=== PATIENT | female | born 1960 | race Two or more races ===

== ENCOUNTER 2017-10-21 20:26 | Emergency (ER) | payer OTHER ==
[~2017-10-21] VITALS: Ht 167.6 cm; Wt 100.4 kg
[2017-10-21 20:47] VITALS: BP 155/77
[2017-10-21] MEDS ORDERED: DIAZEPAM 5 MG/ML 2ML SYRG IM ONE (23:30)
[2017-10-21] MEDS ORDERED: DIAZEPAM 5 MG TAB ONE (23:37)
[2017-10-21] MEDS ORDERED: DIAZEPAM 5 MG TAB PO ONE (23:45)
== END 2017-10-21 23:59 | disposition home or self-care (01) ==
LOC: ER 20:26
DX: S13.4XXA Sprain of ligaments of cervical spine, initial encounter (principal); X58.XXXA Exposure to other specified factors, initial encounter; Y93.89 Activity, other specified; Y99.8 Other external cause status; Y92.89 Other specified places as the place of occurrence of the external cause
CPT/HCPCS: 72125

== ENCOUNTER → 2020-01-19 | Outpatient (CLI) | payer OTHER ==
[2020-01-19 09:39] LABS: Albumin 3.8 g/dL (3.4-5.0); Calcium 8.4 mg/dL (8.5-10.1); Potassium 3.9 mmol/L (3.5-5.1)
[2020-01-19 09:42] LABS: BUN/Creatinine Ratio 48.9; Bilirubin, Total 0.4 mg/dL (0.2-1.0); Total Protein 7.8 g/dL (6.4-8.2)
== END | disposition home or self-care (01) ==
LOC: LAB 08:47
PROVIDERS: ATTEND Internal Medicine
DX: Z12.11 Encounter for screening for malignant neoplasm of colon (principal); E78.5 Hyperlipidemia, unspecified
CPT/HCPCS: 36415; 80053

== ENCOUNTER → 2020-01-24 | Outpatient (CLI) | payer OTHER | END | disposition home or self-care (01) | LOC: LAB 14:24 | PROVIDERS: ATTEND Internal Medicine | DX: G72.9 Myopathy, unspecified (principal) | CPT/HCPCS: 82270 ==

== ENCOUNTER → 2020-04-06 | Outpatient (CLI) | payer OTHER ==
[2020-04-06 09:29] LABS: Basophils # (auto) 0.1 10 ^3/uL (0-0.2); Eosinophils # (auto) 0.3 10 ^3/uL (0-0.8); Hemoglobin 13.6 g/dL (12.2-16.2); Mean Corpuscular Volume 84.2 fL (80.0-100.0); Monocytes # (auto) 0.5 10 ^3/uL (0-1.3); Platelet Count (auto) 294 10^3/uL (140-450); White Blood Cell 10.1 10^3/uL (4.4-10.8)
[2020-04-06 09:30] LABS: Basophils % (auto) 0.8 % (0.0-2.0); Hematocrit 42.3 % (36.0-46.0); Lymphocytes # (auto) 2.9 10 ^3/uL (0.4-5.4); Mean Corpuscular Hemoglobin 27.1 pg (28.0-32.0); Mean Corpuscular Hgb Conc. 32.2 g/dL (32.0-36.0); Neutrophils # (auto) 6.3 10 ^3/uL (1.6-8.6); Neutrophils % (auto) 62.2 % (37.0-80.0); Nucleated Red Blood Cells % 0.1 %; Red Blood Cells 5.02 10^6/uL (4.0-5.20); Red Cell Distribution Width 14.4 % (11.8-14.3)
== END | disposition home or self-care (01) ==
LOC: LAB 09:15
PROVIDERS: ATTEND Internal Medicine
DX: M17.12 Unilateral primary osteoarthritis, left knee (principal); E78.5 Hyperlipidemia, unspecified
CPT/HCPCS: 36415; 83036; 85025; 85652

== ENCOUNTER → 2021-03-28 | Outpatient (CLI) | payer OTHER ==
[2021-03-28 10:53] LABS: Basophils # (auto) 0.1 10 ^3/uL (0-0.2); Basophils % (auto) 0.7 % (0.0-2.0); Eosinophils # (auto) 0.2 10 ^3/uL (0-0.8); Eosinophils % (auto) 2.3 % (0.0-7.0); Hematocrit 41.2 % (36.0-46.0); Lymphocytes # (auto) 3.3 10 ^3/uL (0.4-5.4); Lymphocytes % (auto) 33.9 % (10.0-50.0); Mean Corpuscular Hgb Conc. 33.9 g/dL (32.0-36.0); Mean Corpuscular Volume 82.4 fL (80.0-100.0); Monocytes # (auto) 0.5 10 ^3/uL (0-1.3); Monocytes % (auto) 4.9 % (0.0-12.0); Neutrophils # (auto) 5.7 10 ^3/uL (1.6-8.6); Neutrophils % (auto) 58.2 % (37.0-80.0); Red Cell Distribution Width 14.5 % (11.8-14.3); White Blood Cell 9.8 10^3/uL (4.4-10.8)
[2021-03-28 10:57] LABS: Urine Amorphous Crystal FEW /hpf (None Seen); Urine Bacteria FEW /hpf (None Seen); Urine Blood Negative /uL (Negative); Urine Mucus FEW (None Seen); Urine Specific Gravity 1.027 (1.001-1.035); Urine WBC 3 /hpf (0 - 5)
[2021-03-28 11:19] LABS: Albumin 3.9 g/dL (3.4-5.0); Calcium 9.3 mg/dL (8.5-10.1); Potassium 3.9 mmol/L (3.5-5.1)
[2021-03-28 11:26] LABS: BUN/Creatinine Ratio 42.2; Bilirubin, Total 0.3 mg/dL (0.2-1.0); Total Protein 8.6 g/dL (6.4-8.2)
== END | disposition home or self-care (01) ==
LOC: LAB 10:24
PROVIDERS: ATTEND Internal Medicine
DX: Z12.11 Encounter for screening for malignant neoplasm of colon (principal); I10 Essential (primary) hypertension; E11.9 Type 2 diabetes mellitus without complications
CPT/HCPCS: 36415; 80053; 80061; 81001; 82043; 85025

== ENCOUNTER → 2021-04-03 | Outpatient (CLI) | payer OTHER | END | disposition home or self-care (01) | LOC: XYW 12:56 | PROVIDERS: ATTEND Internal Medicine | DX: Z01.810 Encounter for preprocedural cardiovascular examination (principal); I07.1 Rheumatic tricuspid insufficiency | CPT/HCPCS: 93306 ==

== ENCOUNTER → 2021-12-16 | Outpatient (CLI) | payer OTHER | END | disposition home or self-care (01) | LOC: LAB 11:16 | PROVIDERS: ATTEND Internal Medicine | DX: Z12.11 Encounter for screening for malignant neoplasm of colon (principal); E11.9 Type 2 diabetes mellitus without complications; E78.5 Hyperlipidemia, unspecified; R22.43 Localized swelling, mass and lump, lower limb, bilateral; I10 Essential (primary) hypertension | CPT/HCPCS: 82270 ==

== ENCOUNTER → 2021-12-30 | Outpatient (CLI) | payer OTHER | END | disposition home or self-care (01) | LOC: LAB 10:42 | PROVIDERS: ATTEND Internal Medicine | DX: M79.606 Pain in leg, unspecified (principal); E78.5 Hyperlipidemia, unspecified | CPT/HCPCS: 36415; 82550 ==

== ENCOUNTER → 2022-02-09 | Emergency (ER) | payer OTHER ==
[~2022-02-09] VITALS: Ht 167.6 cm; Wt 104.3 kg
[~2022-02-09] MED LIST: KETOROLAC TROMETH 60MG/2ML VIAL IM ONE
[2022-02-09 18:20] VITALS: BP 101/63
== END | disposition home or self-care (01) ==
LOC: ER 14:32
DX: M17.12 Unilateral primary osteoarthritis, left knee (principal); M79.605 Pain in left leg; I11.0 Hypertensive heart disease with heart failure; I50.9 Heart failure, unspecified; E78.5 Hyperlipidemia, unspecified; Z90.49 Acquired absence of other specified parts of digestive tract
CPT/HCPCS: 73562; 93971; 96372; 99284; J1885

== ENCOUNTER → 2022-02-25 | Outpatient (CLI) | payer OTHER ==
[2022-02-25 11:35] LABS: Alanine Aminotransferase 51 U/L (13-56); Albumin 3.5 g/dL (3.4-5.0); Alkaline Phosphatase 68 U/L (45-117); Aspartate Aminotransferase 26 U/L (15-37); Bilirubin, Direct < 0.1 mg/dL (0-0.2); Bilirubin, Total 0.4 mg/dL (0.2-1.0); Total Protein 7.6 g/dL (6.4-8.2)
== END | disposition home or self-care (01) ==
LOC: LAB 10:07
PROVIDERS: ATTEND Internal Medicine
DX: E78.5 Hyperlipidemia, unspecified (principal)
CPT/HCPCS: 36415; 80076

== ENCOUNTER → 2022-06-30 | Outpatient (CLI) | payer OTHER ==
[2022-06-30 13:23] LABS: Alanine Aminotransferase 77 U/L (13-56); Albumin 3.3 g/dL (3.4-5.0); Alkaline Phosphatase 65 U/L (45-117); Aspartate Aminotransferase 28 U/L (15-37); Bilirubin, Direct < 0.1 mg/dL (0-0.2); Bilirubin, Total 0.3 mg/dL (0.2-1.0); Creatine Kinase IFCC 113 U/L (26-192); Total Protein 7.2 g/dL (6.4-8.2)
== END | disposition home or self-care (01) ==
LOC: LAB 11:00
PROVIDERS: ATTEND Internal Medicine
DX: E78.5 Hyperlipidemia, unspecified (principal)
CPT/HCPCS: 36415; 80076; 82550

== ENCOUNTER → 2022-08-20 | Outpatient (CLI) | payer OTHER ==
[2022-08-20 10:13] LABS: Albumin 3.6 g/dL (3.4-5.0)
[2022-08-20 10:19] LABS: Alanine Aminotransferase 77 U/L (13-56); Alkaline Phosphatase 81 U/L (45-117); Aspartate Aminotransferase 29 U/L (15-37); Bilirubin, Direct < 0.1 mg/dL (0-0.2); Bilirubin, Total 0.3 mg/dL (0.2-1.0); Total Protein 7.4 g/dL (6.4-8.2)
== END | disposition home or self-care (01) ==
LOC: LAB 09:31
PROVIDERS: ATTEND Internal Medicine
DX: E78.5 Hyperlipidemia, unspecified (principal)
CPT/HCPCS: 36415; 80076

== ENCOUNTER 2022-08-31 10:29 | Emergency (ER) | payer OTHER ==
[~2022-08-31] VITALS: Ht 167.6 cm; Wt 122.0 kg
[2022-08-31 11:51] VITALS: BP 91/76
[2022-08-31] MEDS ORDERED: HYDROcodone-ACET 10/325MG TAB PO ONE (12:15)
[2022-08-31] MEDS ORDERED: IBUP800T26 PO (14:15)
== END 2022-08-31 14:18 | disposition home or self-care (01) ==
LOC: ER 10:29
DX: M47.816 Spondylosis without myelopathy or radiculopathy, lumbar region (principal); M54.40 Lumbago with sciatica, unspecified side; I11.0 Hypertensive heart disease with heart failure; I50.9 Heart failure, unspecified; E11.9 Type 2 diabetes mellitus without complications; E78.5 Hyperlipidemia, unspecified; Z90.49 Acquired absence of other specified parts of digestive tract
CPT/HCPCS: 72100

== ENCOUNTER → 2022-11-04 | Outpatient (CLI) | payer OTHER ==
[~2022-11-04] MED LIST changes: +IBUP800T26 PO; -KETOROLAC TROMETH 60MG/2ML VIAL IM ONE
[2022-11-04 10:35] LABS: Basophils # (auto) 0.1 10 ^3/uL (0-0.2); Basophils % (auto) 0.8 % (0.0-2.0); Eosinophils # (auto) 0.1 10 ^3/uL (0-0.8); Eosinophils % (auto) 0.9 % (0.0-7.0); Lymphocytes # (auto) 4.6 10 ^3/uL (0.4-5.4); Monocytes # (auto) 0.8 10 ^3/uL (0-1.3); Monocytes % (auto) 5.5 % (0.0-12.0); Neutrophils # (auto) 9.7 10 ^3/uL (1.6-8.6); Neutrophils % (auto) 62.8 % (37.0-80.0); Nucleated Red Blood Cells % 0.1 %; White Blood Cell 15.4 10^3/uL (4.4-10.8)
[2022-11-04 10:36] LABS: Hematocrit 40.4 % (36.0-46.0); Hemoglobin 13.5 g/dL (12.2-16.2); Mean Corpuscular Hemoglobin 28.2 pg (28.0-32.0); Mean Corpuscular Hgb Conc. 33.5 g/dL (32.0-36.0); Mean Corpuscular Volume 84.4 fL (80.0-100.0); Red Blood Cells 4.79 10^6/uL (4.0-5.20); Red Cell Distribution Width 14.6 % (11.8-14.3)
[2022-11-04 11:10] LABS: Alanine Aminotransferase 82 U/L (13-56); Albumin 3.3 g/dL (3.4-5.0); Alkaline Phosphatase 90 U/L (45-117); Anion Gap 5 (5-15); Aspartate Aminotransferase 36 U/L (15-37); BUN/Creatinine Ratio 53.2; Bilirubin, Direct < 0.1 mg/dL (0-0.2); Bilirubin, Total 0.3 mg/dL (0.2-1.0); Blood Urea Nitrogen 25 mg/dL (7-18); Calcium 8.9 mg/dL (8.5-10.1); Carbon Dioxide 27 mmol/L (21-32); Chloride 109 mmol/L (98-107); Cholesterol 280 mg/dL (< 200); GFR African American 173 mL/min; GFR Non-African American 143 mL/min; Glucose 105 mg/dL (74-106); HDL Cholesterol 55 mg/dL (40-59); LDL Cholesterol 195 mg/dL (< 100); Potassium 3.6 mmol/L (3.5-5.1); Sodium 141 mmol/L (136-145); Total Protein 7.6 g/dL (6.4-8.2); Triglycerides 241 mg/dL (< 150)
== END | disposition home or self-care (01) ==
LOC: LAB 10:18
PROVIDERS: ATTEND Internal Medicine
DX: Z12.11 Encounter for screening for malignant neoplasm of colon (principal); E11.9 Type 2 diabetes mellitus without complications; E78.5 Hyperlipidemia, unspecified; I10 Essential (primary) hypertension
CPT/HCPCS: 36415; 80053; 80061; 80076; 82043; 83036; 85025

== ENCOUNTER → 2022-11-10 | Outpatient (CLI) | payer OTHER ==
[2022-11-10 09:16] LABS: Basophils # (auto) 0.1 10 ^3/uL (0-0.2); Basophils % (auto) 0.5 % (0.0-2.0); Eosinophils # (auto) 0 10 ^3/uL (0-0.8); Hematocrit 40.1 % (36.0-46.0); Hemoglobin 13.2 g/dL (12.2-16.2); Lymphocytes # (auto) 4.5 10 ^3/uL (0.4-5.4); Lymphocytes % (auto) 20.4 % (10.0-50.0); Mean Corpuscular Hemoglobin 27.7 pg (28.0-32.0); Mean Corpuscular Hgb Conc. 32.8 g/dL (32.0-36.0); Mean Corpuscular Volume 84.6 fL (80.0-100.0); Monocytes # (auto) 1.1 10 ^3/uL (0-1.3); Monocytes % (auto) 5.1 % (0.0-12.0); Neutrophils # (auto) 16.2 10 ^3/uL (1.6-8.6); Nucleated Red Blood Cells % 0.1 %; Red Blood Cells 4.75 10^6/uL (4.0-5.20); Red Cell Distribution Width 14.8 % (11.8-14.3)
[2022-11-10 10:12] LABS: Urine Bacteria NONE SEEN /hpf (None Seen); Urine Blood Negative /uL (Negative); Urine Specific Gravity 1.025 (1.001-1.035); Urine WBC 1 /hpf (0 - 5)
== END | disposition home or self-care (01) ==
LOC: LAB 08:56
PROVIDERS: ATTEND Internal Medicine
DX: D72.829 Elevated white blood cell count, unspecified (principal)
CPT/HCPCS: 36415; 81001; 85025

== ENCOUNTER → 2022-12-03 | Outpatient (CLI) | payer OTHER ==
[2022-12-03 11:00] LABS: Basophils # (auto) 0.1 10 ^3/uL (0-0.2); Basophils % (auto) 0.8 % (0.0-2.0); Eosinophils # (auto) 0.1 10 ^3/uL (0-0.8); Eosinophils % (auto) 0.8 % (0.0-7.0); Hematocrit 40.2 % (36.0-46.0); Hemoglobin 12.8 g/dL (12.2-16.2); Lymphocytes # (auto) 3.2 10 ^3/uL (0.4-5.4); Lymphocytes % (auto) 21.5 % (10.0-50.0); Mean Corpuscular Hemoglobin 27.1 pg (28.0-32.0); Mean Corpuscular Hgb Conc. 31.9 g/dL (32.0-36.0); Monocytes # (auto) 0.8 10 ^3/uL (0-1.3); Monocytes % (auto) 5.5 % (0.0-12.0); Neutrophils # (auto) 10.7 10 ^3/uL (1.6-8.6); Neutrophils % (auto) 71.4 % (37.0-80.0); Nucleated Red Blood Cells % 0.1 %; Red Blood Cells 4.72 10^6/uL (4.0-5.20); Red Cell Distribution Width 15.7 % (11.8-14.3)
== END | disposition home or self-care (01) ==
LOC: LAB 10:47
PROVIDERS: ATTEND Internal Medicine
DX: I10 Essential (primary) hypertension (principal); E11.9 Type 2 diabetes mellitus without complications; D72.829 Elevated white blood cell count, unspecified
CPT/HCPCS: 36415; 85025; 85379

== ENCOUNTER → 2022-12-18 | Outpatient (CLI) | payer OTHER ==
[2022-12-18 08:00] LABS: Basophils # (auto) 0.1 10 ^3/uL (0-0.2); Basophils % (auto) 0.6 % (0.0-2.0); Eosinophils # (auto) 0.1 10 ^3/uL (0-0.8); Eosinophils % (auto) 0.9 % (0.0-7.0); Hematocrit 40.3 % (36.0-46.0); Lymphocytes # (auto) 5.2 10 ^3/uL (0.4-5.4); Lymphocytes % (auto) 34.9 % (10.0-50.0); Mean Corpuscular Hemoglobin 27.4 pg (28.0-32.0); Mean Corpuscular Hgb Conc. 32.4 g/dL (32.0-36.0); Mean Corpuscular Volume 84.8 fL (80.0-100.0); Monocytes # (auto) 0.9 10 ^3/uL (0-1.3); Monocytes % (auto) 6.1 % (0.0-12.0); Neutrophils # (auto) 8.5 10 ^3/uL (1.6-8.6); Neutrophils % (auto) 57.5 % (37.0-80.0); Nucleated Red Blood Cells % 0.1 %; Red Blood Cells 4.75 10^6/uL (4.0-5.20); Red Cell Distribution Width 15.7 % (11.8-14.3); White Blood Cell 14.8 10^3/uL (4.4-10.8)
[2022-12-18 08:39] LABS: Cholesterol 281 mg/dL (< 200); HDL Cholesterol 55 mg/dL (40-59); LDL Cholesterol 190 mg/dL (< 100); Triglycerides 259 mg/dL (< 150)
== END | disposition home or self-care (01) ==
LOC: LAB 07:36
PROVIDERS: ATTEND Internal Medicine
DX: E11.9 Type 2 diabetes mellitus without complications (principal); D72.829 Elevated white blood cell count, unspecified; R79.89 Other specified abnormal findings of blood chemistry
CPT/HCPCS: 36415; 80061; 82570; 83036; 85025

== ENCOUNTER → 2023-02-04 | Outpatient (CLI) | payer OTHER ==
[~2023-02-04] MED LIST changes: +IBUP-1455 PO; -IBUP800T26 PO
[2023-02-04 08:58] LABS: Basophils # (auto) 0.1 10 ^3/uL (0-0.2); Basophils % (auto) 0.6 % (0.0-2.0); Eosinophils # (auto) 0.1 10 ^3/uL (0-0.8); Eosinophils % (auto) 0.6 % (0.0-7.0); Hematocrit 41.1 % (36.0-46.0); Hemoglobin 13.4 g/dL (12.2-16.2); Lymphocytes # (auto) 4.6 10 ^3/uL (0.4-5.4); Lymphocytes % (auto) 26.9 % (10.0-50.0); Mean Corpuscular Hemoglobin 28.2 pg (28.0-32.0); Mean Corpuscular Hgb Conc. 32.6 g/dL (32.0-36.0); Mean Corpuscular Volume 86.4 fL (80.0-100.0); Monocytes # (auto) 0.9 10 ^3/uL (0-1.3); Monocytes % (auto) 5.4 % (0.0-12.0); Neutrophils # (auto) 11.4 10 ^3/uL (1.6-8.6); Neutrophils % (auto) 66.5 % (37.0-80.0); Nucleated Red Blood Cells % 0.1 %; Red Blood Cells 4.75 10^6/uL (4.0-5.20); Red Cell Distribution Width 15.5 % (11.8-14.3); White Blood Cell 17.2 10^3/uL (4.4-10.8)
[2023-02-04 09:08] LABS: Albumin 3.3 g/dL (3.4-5.0); Calcium 8.1 mg/dL (8.5-10.1); Potassium 3.8 mmol/L (3.5-5.1)
[2023-02-04 09:12] LABS: BUN/Creatinine Ratio 49.2 (10.0-20.0); Bilirubin, Total 0.2 mg/dL (0.2-1.0); CRP High Sensitivity 0.71 mg/dL (< 0.3); Total Protein 6.9 g/dL (6.4-8.2)
== END | disposition home or self-care (01) ==
LOC: LAB 08:05
PROVIDERS: ATTEND Internal Medicine
DX: D72.829 Elevated white blood cell count, unspecified (principal)
CPT/HCPCS: 36415; 80053; 83615; 85025; 85652; 86038; 86141; 86431

== ENCOUNTER → 2023-04-07 | Outpatient (CLI) | payer OTHER | END | disposition home or self-care (01) | LOC: LAB 08:39 | PROVIDERS: ATTEND Internal Medicine | DX: E11.9 Type 2 diabetes mellitus without complications (principal); D72.819 Decreased white blood cell count, unspecified | CPT/HCPCS: 36415; 82550; 83036; 83615 ==

== ENCOUNTER → 2023-05-28 | Outpatient (CLI) | payer OTHER ==
[2023-05-28 09:02] LABS: Basophils # (auto) 0.1 10 ^3/uL (0-0.2); Basophils % (auto) 0.8 % (0.0-2.0); Eosinophils # (auto) 0.1 10 ^3/uL (0-0.8); Hematocrit 40.4 % (36.0-46.0); Hemoglobin 13.1 g/dL (12.2-16.2); Lymphocytes # (auto) 3.8 10 ^3/uL (0.4-5.4); Mean Corpuscular Hemoglobin 27.7 pg (28.0-32.0); Mean Corpuscular Hgb Conc. 32.4 g/dL (32.0-36.0); Mean Corpuscular Volume 85.5 fL (80.0-100.0); Neutrophils # (auto) 8.6 10 ^3/uL (1.6-8.6); Neutrophils % (auto) 63.2 % (37.0-80.0); Nucleated Red Blood Cells % 0.1 %; Red Blood Cells 4.73 10^6/uL (4.0-5.20); Red Cell Distribution Width 15.7 % (11.8-14.3); White Blood Cell 13.6 10^3/uL (4.4-10.8)
[2023-05-28 09:20] LABS: Chloride 106 mmol/L (98-107); Potassium 3.4 mmol/L (3.5-5.1); Sodium 143 mmol/L (136-145)
[2023-05-28 09:21] LABS: Anion Gap 9 (5-15); Calcium 9.3 mg/dL (8.5-10.1); Carbon Dioxide 28 mmol/L (20-30); Creatinine, Urine 115.12 mg/dL (30.0-125.0)
[2023-05-28 09:26] LABS: BUN/Creatinine Ratio 30.4 (10.0-20.0); Blood Urea Nitrogen 14 mg/dL (9-23); Glucose 133 mg/dL (74-106)
== END | disposition home or self-care (01) ==
LOC: LAB 08:31
PROVIDERS: ATTEND Internal Medicine
DX: E11.9 Type 2 diabetes mellitus without complications (principal); D72.829 Elevated white blood cell count, unspecified
CPT/HCPCS: 36415; 80048; 82043; 82570; 83615; 85025

== ENCOUNTER 2023-06-21 13:05 | Emergency (ER) | payer OTHER, MEDICARE ==
[~2023-06-21] VITALS: Ht 167.6 cm; Wt 130.3 kg
[2023-06-21 13:17] VITALS: BP 140/67; PULSE 87; RESP 17; O2SAT 95
[2023-06-21 13:54] LABS: Basophils # (auto) 0.1 10 ^3/uL (0-0.2); Eosinophils # (auto) 0.2 10 ^3/uL (0-0.8); Eosinophils % (auto) 1.8 % (0.0-7.0); Hematocrit 41.3 % (36.0-46.0); Hemoglobin 13.4 g/dL (12.2-16.2); Lymphocytes # (auto) 3.5 10 ^3/uL (0.4-5.4); Lymphocytes % (auto) 30.7 % (10.0-50.0); Mean Corpuscular Hemoglobin 27.3 pg (28.0-32.0); Mean Corpuscular Hgb Conc. 32.3 g/dL (32.0-36.0); Mean Corpuscular Volume 84.6 fL (80.0-100.0); Monocytes # (auto) 0.7 10 ^3/uL (0-1.3); Monocytes % (auto) 6.2 % (0.0-12.0); Neutrophils # (auto) 6.9 10 ^3/uL (1.6-8.6); Neutrophils % (auto) 60.3 % (37.0-80.0); Nucleated Red Blood Cells % 0.1 %; Red Blood Cells 4.88 10^6/uL (4.0-5.20); Red Cell Distribution Width 15.7 % (11.8-14.3); White Blood Cell 11.4 10^3/uL (4.4-10.8)
[2023-06-21 14:05] LABS: Alanine Aminotransferase 153 U/L (7-40); Albumin 4.1 g/dL (3.2-4.8); Alkaline Phosphatase 91 U/L (46-116); Anion Gap 8 (5-15); Aspartate Aminotransferase 87 U/L (13-40); BUN/Creatinine Ratio 30.5 (10.0-20.0); Bilirubin, Total 0.4 mg/dL (0.2-1.0); Blood Urea Nitrogen 18 mg/dL (9-23); Carbon Dioxide 26 mmol/L (20-30); Chloride 106 mmol/L (98-107); Glucose 129 mg/dL (74-106); Potassium 3.4 mmol/L (3.5-5.1); Sodium 140 mmol/L (136-145); Total Protein 6.6 g/dL (5.7-8.2)
[2023-06-21 15:02] LABS: INR 1.02 (0.9-1.15); Partial Thromboplastin Time 24.9 SEC (24.5-34.5); Prothrombin Time 10.7 sec (9.3-11.8)
== END 2023-06-21 17:11 | disposition home or self-care (01) ==
LOC: ER 13:05
DX: R06.09 Other forms of dyspnea (principal); M17.12 Unilateral primary osteoarthritis, left knee; I11.0 Hypertensive heart disease with heart failure; I50.9 Heart failure, unspecified; E11.9 Type 2 diabetes mellitus without complications; E78.5 Hyperlipidemia, unspecified; Z90.49 Acquired absence of other specified parts of digestive tract; Z79.1 Long term (current) use of non-steroidal anti-inflammatories (NSAID)
CPT/HCPCS: 36415; 71045; 73560; 80053; 83880; 84484; 85025; 85379; 85610; 85730; 93005

== ENCOUNTER → 2023-06-25 | Outpatient (CLI) | payer OTHER ==
[2023-06-25 15:39] LABS: Basophils # (auto) 0.1 10 ^3/uL (0-0.2); Basophils % (auto) 0.8 % (0.0-2.0); Eosinophils # (auto) 0.3 10 ^3/uL (0-0.8); Eosinophils % (auto) 2.6 % (0.0-7.0); Hematocrit 40.2 % (36.0-46.0); Hemoglobin 13.3 g/dL (12.2-16.2); Lymphocytes # (auto) 3.5 10 ^3/uL (0.4-5.4); Lymphocytes % (auto) 30.8 % (10.0-50.0); Mean Corpuscular Hemoglobin 27.7 pg (28.0-32.0); Mean Corpuscular Volume 83.9 fL (80.0-100.0); Monocytes % (auto) 8.9 % (0.0-12.0); Neutrophils # (auto) 6.4 10 ^3/uL (1.6-8.6); Neutrophils % (auto) 56.9 % (37.0-80.0); Red Blood Cells 4.79 10^6/uL (4.0-5.20); Red Cell Distribution Width 15.8 % (11.8-14.3); White Blood Cell 11.2 10^3/uL (4.4-10.8)
[2023-06-25 16:02] LABS: Alanine Aminotransferase 115 U/L (7-40); Alkaline Phosphatase 63 U/L (46-116); Anion Gap 10 (5-15); Aspartate Aminotransferase 85 U/L (13-40); BUN/Creatinine Ratio 17.5 (10.0-20.0); Blood Urea Nitrogen 10 mg/dL (9-23); Calcium 9.7 mg/dL (8.5-10.1); Carbon Dioxide 29 mmol/L (20-30); Chloride 101 mmol/L (98-107); Glucose 128 mg/dL (74-106); Potassium 3.1 mmol/L (3.5-5.1); Sodium 140 mmol/L (136-145)
[2023-06-25 16:03] LABS: Albumin 4.2 g/dL (3.2-4.8); Bilirubin, Total 0.5 mg/dL (0.2-1.0); Total Protein 6.8 g/dL (5.7-8.2)
== END | disposition home or self-care (01) ==
LOC: LAB 15:27
PROVIDERS: ATTEND Internal Medicine
DX: R10.84 Generalized abdominal pain (principal); R79.89 Other specified abnormal findings of blood chemistry
CPT/HCPCS: 36415; 80053; 85025

== ENCOUNTER 2023-06-27 20:30 | Emergency (ER) | payer OTHER, MEDICARE ==
[~2023-06-27] VITALS: Ht 167.6 cm; Wt 90.0 kg
[2023-06-27 21:09] LABS: Basophils # (auto) 0.1 10 ^3/uL (0-0.2); Basophils % (auto) 0.7 % (0.0-2.0); Eosinophils # (auto) 0.3 10 ^3/uL (0-0.8); Eosinophils % (auto) 2.8 % (0.0-7.0); Hematocrit 40.7 % (36.0-46.0); Hemoglobin 13.1 g/dL (12.2-16.2); Lymphocytes # (auto) 3.4 10 ^3/uL (0.4-5.4); Lymphocytes % (auto) 30.4 % (10.0-50.0); Mean Corpuscular Hemoglobin 27.5 pg (28.0-32.0); Mean Corpuscular Hgb Conc. 32.3 g/dL (32.0-36.0); Mean Corpuscular Volume 85.2 fL (80.0-100.0); Monocytes % (auto) 9.3 % (0.0-12.0); Neutrophils # (auto) 6.3 10 ^3/uL (1.6-8.6); Neutrophils % (auto) 56.8 % (37.0-80.0); Nucleated Red Blood Cells % 0.1 %; Red Blood Cells 4.77 10^6/uL (4.0-5.20); Red Cell Distribution Width 15.6 % (11.8-14.3)
[2023-06-27 21:20] LABS: Alanine Aminotransferase 90 U/L (7-40); Alkaline Phosphatase 71 U/L (46-116); Anion Gap 10 (5-15); Aspartate Aminotransferase 68 U/L (13-40); BUN/Creatinine Ratio 16.4 (10.0-20.0); Bilirubin, Total 0.4 mg/dL (0.2-1.0); Blood Urea Nitrogen 9 mg/dL (9-23); Calcium 8.9 mg/dL (8.7-10.4); Carbon Dioxide 28 mmol/L (20-30); Chloride 103 mmol/L (98-107); Glucose 135 mg/dL (74-106); Lipase 45 U/L (12-53); Sodium 141 mmol/L (136-145)
[2023-06-27 21:21] LABS: Total Protein 6.7 g/dL (5.7-8.2)
[2023-06-27 21:25] LABS: Potassium 2.9 mmol/L (3.5-5.1)
[2023-06-27] MEDS ORDERED: ONDANSETRON HCL 4 MG/2 ML VIAL IV ONE (21:45)
[2023-06-27] MEDS ORDERED: SODIUM CHLORIDE 0.9% 1,000 ML IV ONE (21:45)
[2023-06-27] MEDS ORDERED: POTASSIUM EFFERVESENT TAB 25 MEQ PO ONE (21:45)
[2023-06-27] MEDS ORDERED: PROC10TA6 PO (22:08)
[2023-06-27] MEDS ORDERED: BISM262C44 PO (22:08)
[2023-06-27 22:30] LABS: Urine Bacteria NONE SEEN /hpf (None Seen); Urine Blood Negative /uL (Negative); Urine Clarity HAZY (Clear); Urine Color Yellow (Yellow); Urine Mucus FEW (None Seen); Urine Protein, UAD 1+ (Negative); Urine Specific Gravity 1.038 (1.001-1.035); Urine Urobilinogen Normal (Negative); Urine WBC 14 /hpf (0 - 5)
[2023-06-28 02:00] VITALS: TEMP 97.8
[2023-06-28] MEDS ORDERED: HYDROcodone-ACET 10/325MG TAB PO ONE (02:45)
[2023-06-28] MEDS ORDERED: ONDANSETRON HCL 4 MG/2 ML VIAL IV ONE (02:45)
[2023-06-28] MEDS ORDERED: cefTRIAXone 1GM/50ML D5W 50 ML IV ONE (02:45)
[2023-06-28] MEDS ORDERED: CEPH250C PO (07:35)
[2023-06-28 07:46] VITALS: BP 135/91; PULSE 87; RESP 17; O2SAT 95
== END 2023-06-28 07:49 | disposition home or self-care (01) ==
LOC: ER 20:30 → EDBD 20:30 → ER 06-28 07:49
DX: K52.1 Toxic gastroenteritis and colitis (principal); M13.862 Other specified arthritis, left knee; I11.0 Hypertensive heart disease with heart failure; I50.9 Heart failure, unspecified; E78.5 Hyperlipidemia, unspecified; E11.9 Type 2 diabetes mellitus without complications; Z90.49 Acquired absence of other specified parts of digestive tract
CPT/HCPCS: 36415; 80053; 81001; 83690; 84484; 85025; 93005; 96361; 96365; 96366; 96375; 96376; 99285; J0696; J2405; J7030

== ENCOUNTER → 2023-07-27 | Outpatient (CLI) | payer OTHER ==
[~2023-07-27] MED LIST changes: +BISM262C44 PO; +CEPH250C PO; +PROC10TA6 PO
[2023-07-27 09:43] LABS: Alanine Aminotransferase 64 U/L (7-40); Albumin 4.1 g/dL (3.2-4.8); Alkaline Phosphatase 78 U/L (46-116); Anion Gap 9 (5-15); Aspartate Aminotransferase 84 U/L (13-40); BUN/Creatinine Ratio 31.6 (10.0-20.0); Blood Urea Nitrogen 18 mg/dL (9-23); Calcium 9.7 mg/dL (8.5-10.1); Carbon Dioxide 29 mmol/L (20-30); Chloride 103 mmol/L (98-107); Glucose 156 mg/dL (74-106); Potassium 3.3 mmol/L (3.5-5.1); Sodium 141 mmol/L (136-145)
[2023-07-27 09:44] LABS: Bilirubin, Total 0.4 mg/dL (0.2-1.0); Total Protein 7.1 g/dL (5.7-8.2)
== END | disposition home or self-care (01) ==
LOC: LAB 09:01
PROVIDERS: ATTEND Internal Medicine
DX: E11.9 Type 2 diabetes mellitus without complications (principal)
CPT/HCPCS: 36415; 80053

== ENCOUNTER → 2023-08-10 | Outpatient (CLI) | payer OTHER ==
[2023-08-10 08:06] LABS: Basophils # (auto) 0 10 ^3/uL (0-0.2); Basophils % (auto) 0.3 % (0.0-2.0); Eosinophils # (auto) 0.2 10 ^3/uL (0-0.8)
[2023-08-10 08:08] LABS: Eosinophils % (auto) 1.8 % (0.0-7.0); Hematocrit 41.9 % (36.0-46.0); Hemoglobin 13.4 g/dL (12.2-16.2); Lymphocytes % (auto) 16.4 % (10.0-50.0); Mean Corpuscular Hemoglobin 26.4 pg (28.0-32.0); Mean Corpuscular Hgb Conc. 32.1 g/dL (32.0-36.0); Mean Corpuscular Volume 82.3 fL (80.0-100.0); Monocytes # (auto) 0.6 10 ^3/uL (0-1.3); Monocytes % (auto) 5.3 % (0.0-12.0); Neutrophils # (auto) 9.2 10 ^3/uL (1.6-8.6); Neutrophils % (auto) 76.2 % (37.0-80.0); Red Blood Cells 5.08 10^6/uL (4.0-5.20); Red Cell Distribution Width 15.7 % (11.8-14.3); White Blood Cell 12.1 10^3/uL (4.4-10.8)
[2023-08-10 08:18] LABS: Chloride 107 mmol/L (98-107); Potassium 3.4 mmol/L (3.5-5.1); Sodium 141 mmol/L (136-145)
[2023-08-10 08:19] LABS: Anion Gap 9 (5-15); Carbon Dioxide 25 mmol/L (20-30)
[2023-08-10 08:20] LABS: Calcium 9.2 mg/dL (8.5-10.1)
[2023-08-10 08:24] LABS: Glucose 141 mg/dL (74-106)
[2023-08-10 08:25] LABS: BUN/Creatinine Ratio 27.5 (10.0-20.0); Blood Urea Nitrogen 14 mg/dL (9-23)
== END | disposition home or self-care (01) ==
LOC: LAB 07:45
PROVIDERS: ATTEND Internal Medicine
DX: E11.9 Type 2 diabetes mellitus without complications (principal); D72.829 Elevated white blood cell count, unspecified
CPT/HCPCS: 36415; 80048; 83615; 85025

== ENCOUNTER → 2023-09-28 | Outpatient (CLI) | payer MEDICAID | END | disposition home or self-care (01) | LOC: XYW 12:27 | PROVIDERS: ATTEND Internal Medicine | DX: Z01.818 Encounter for other preprocedural examination (principal); I51.89 Other ill-defined heart diseases | CPT/HCPCS: 93306 ==

== ENCOUNTER → 2023-11-02 | Outpatient (CLI) | payer MEDICAID ==
[2023-11-02 08:43] LABS: Basophils # (auto) 0.1 10 ^3/uL (0-0.2); Eosinophils # (auto) 0.1 10 ^3/uL (0-0.8); Hemoglobin 13.1 g/dL (12.2-16.2); Lymphocytes # (auto) 7.6 10 ^3/uL (0.4-5.4); White Blood Cell 18.1 10^3/uL (4.4-10.8)
[2023-11-02 08:44] LABS: Basophils % (auto) 0.5 % (0.0-2.0); Eosinophils % (auto) 0.5 % (0.0-7.0); Hematocrit 40.4 % (36.0-46.0); Lymphocytes % (auto) 42.1 % (10.0-50.0); Mean Corpuscular Hemoglobin 26.2 pg (28.0-32.0); Mean Corpuscular Hgb Conc. 32.4 g/dL (32.0-36.0); Mean Corpuscular Volume 80.9 fL (80.0-100.0); Monocytes # (auto) 0.9 10 ^3/uL (0-1.3); Monocytes % (auto) 4.9 % (0.0-12.0); Neutrophils # (auto) 9.4 10 ^3/uL (1.6-8.6); Nucleated Red Blood Cells % 0.1 %; Red Blood Cells 4.99 10^6/uL (4.0-5.20)
[2023-11-02 08:45] LABS: Red Cell Distribution Width 20.1 % (11.8-14.3)
[2023-11-02 09:53] LABS: Alanine Aminotransferase 82 U/L (7-40); Albumin 4.2 g/dL (3.2-4.8); Alkaline Phosphatase 88 U/L (46-116); Anion Gap 8 (5-15); Aspartate Aminotransferase 51 U/L (13-40); BUN/Creatinine Ratio 35.7 (10.0-20.0); Bilirubin, Total 0.5 mg/dL (0.2-1.0); Blood Urea Nitrogen 20 mg/dL (9-23); Calcium 9.3 mg/dL (8.5-10.1); Carbon Dioxide 28 mmol/L (20-30); Chloride 106 mmol/L (98-107); Glucose 99 mg/dL (74-106); Potassium 3.9 mmol/L (3.5-5.1); Sodium 142 mmol/L (136-145)
[2023-11-02 11:07] LABS: Creatinine, Urine 145.1 mg/dL (30.0-125.0)
[2023-11-02 12:21] LABS: Chloride 107 mmol/L (98-107); Potassium 3.9 mmol/L (3.5-5.1); Sodium 142 mmol/L (136-145)
[2023-11-02 12:22] LABS: Anion Gap 8 (5-15); Carbon Dioxide 27 mmol/L (20-30)
[2023-11-02 12:23] LABS: Calcium 9.2 mg/dL (8.5-10.1)
[2023-11-02 12:27] LABS: Glucose 99 mg/dL (74-106)
[2023-11-02 12:28] LABS: BUN/Creatinine Ratio 39.2 (10.0-20.0); Blood Urea Nitrogen 20 mg/dL (9-23)
== END | disposition home or self-care (01) ==
LOC: LAB 08:27
PROVIDERS: ATTEND Internal Medicine
DX: E11.9 Type 2 diabetes mellitus without complications (principal)
CPT/HCPCS: 36415; 80048; 80053; 82043; 82570; 83615; 85025

== ENCOUNTER 2023-11-09 11:56 | Emergency (ER) | payer MEDICAID ==
[~2023-11-09] VITALS: Ht 167.6 cm; Wt 118.5 kg
[2023-11-09 11:56] VITALS: BP 123/64; PULSE 84; RESP 18; O2SAT 98
[2023-11-09 13:25] LABS: Basophils # (auto) 0.2 10 ^3/uL (0-0.2); Eosinophils # (auto) 0.1 10 ^3/uL (0-0.8); Eosinophils % (auto) 0.4 % (0.0-7.0); Lymphocytes % (auto) 18.3 % (10.0-50.0); Mean Corpuscular Hemoglobin 26.6 pg (28.0-32.0)
[2023-11-09 13:26] LABS: Hemoglobin 13.1 g/dL (12.2-16.2); Lymphocytes # (auto) 4.1 10 ^3/uL (0.4-5.4); Mean Corpuscular Hgb Conc. 32.7 g/dL (32.0-36.0); Mean Corpuscular Volume 81.3 fL (80.0-100.0); Monocytes % (auto) 4.5 % (0.0-12.0); Neutrophils % (auto) 75.8 % (37.0-80.0); Red Blood Cells 4.92 10^6/uL (4.0-5.20); Red Cell Distribution Width 19.5 % (11.8-14.3); White Blood Cell 22.4 10^3/uL (4.4-10.8)
[2023-11-09 14:09] LABS: Chloride 107 mmol/L (98-107); Potassium 3.9 mmol/L (3.5-5.1); Sodium 141 mmol/L (136-145)
[2023-11-09 14:10] LABS: Anion Gap 7 (5-15); Calcium 9.3 mg/dL (8.5-10.1); Carbon Dioxide 27 mmol/L (20-30)
[2023-11-09 14:15] LABS: BUN/Creatinine Ratio 32.8 (10.0-20.0); Blood Urea Nitrogen 19 mg/dL (9-23); Glucose 149 mg/dL (74-106)
[2023-11-10] MEDS ORDERED: METF-370 PO (11:44)
[2023-11-10] MEDS ORDERED: LOSA100T25 PO (11:44)
[2023-11-10] MEDS ORDERED: MELO7.5T7 PO (11:44)
[2023-11-10] MEDS ORDERED: POTA-220 PO (11:44)
== END 2023-11-09 19:30 | disposition left against medical advice (07) ==
LOC: ER 11:56
DX: K42.9 Umbilical hernia without obstruction or gangrene (principal); D72.829 Elevated white blood cell count, unspecified; R10.9 Unspecified abdominal pain; I11.0 Hypertensive heart disease with heart failure; I50.9 Heart failure, unspecified; E11.9 Type 2 diabetes mellitus without complications; E78.5 Hyperlipidemia, unspecified; Z98.890 Other specified postprocedural states; Z79.899 Other long term (current) drug therapy
CPT/HCPCS: 36415; 74176; 80048; 85025

== ENCOUNTER 2023-11-10 11:05 | Inpatient (IN) | payer MEDICAID ==
[~2023-11-10] VITALS: Ht 167.6 cm; Wt 122.2 kg
[2023-11-10] MEDS ORDERED: POTA-220 PO (11:44)
[2023-11-10] MEDS ORDERED: METF-370 PO (11:44)
[2023-11-10] MEDS ORDERED: MELO7.5T7 PO (11:44)
[2023-11-10] MEDS ORDERED: LOSA100T25 PO (11:44)
[2023-11-10] MEDS: PIPERACILLIN-TAZOB 3.375GM 100 ML IV ONE (11:50)
[2023-11-10] MEDS: MORPHINE SULFATE 4 MG/ML SYR/VIAL IV ONE (11:58)
[2023-11-10] MEDS: ONDANSETRON HCL 4 MG/2 ML VIAL IV ONE (11:58)
[2023-11-10 12:11] LABS: Eosinophils # (auto) 0.1 10 ^3/uL (0-0.8); Hemoglobin 12.9 g/dL (12.2-16.2); Lymphocytes # (auto) 6.7 10 ^3/uL (0.4-5.4)
[2023-11-10 12:13] LABS: Basophils # (auto) 0.1 10 ^3/uL (0-0.2); Basophils % (auto) 0.7 % (0.0-2.0); Eosinophils % (auto) 0.6 % (0.0-7.0); Lymphocytes % (auto) 30.9 % (10.0-50.0); Mean Corpuscular Hemoglobin 26.5 pg (28.0-32.0); Mean Corpuscular Hgb Conc. 32.1 g/dL (32.0-36.0); Mean Corpuscular Volume 82.4 fL (80.0-100.0); Monocytes # (auto) 1.4 10 ^3/uL (0-1.3); Monocytes % (auto) 6.3 % (0.0-12.0); Neutrophils # (auto) 13.2 10 ^3/uL (1.6-8.6); Neutrophils % (auto) 61.5 % (37.0-80.0); Red Blood Cells 4.86 10^6/uL (4.0-5.20); Red Cell Distribution Width 19.5 % (11.8-14.3); White Blood Cell 21.5 10^3/uL (4.4-10.8)
[2023-11-10] MEDS ORDERED: NITROGLYCERIN 0.4 MG SL TAB SL PRN (13:45)
[2023-11-10] MEDS ORDERED: DEXTROSE (50%) 50ML SYRG IV PRN (13:45)
[2023-11-10] MEDS ORDERED: MORPHINE SULFATE INJ 2 MG/ml SYRG IV PRN (13:45)
[2023-11-10] MEDS ORDERED: ONDANSETRON HCL 4 MG/2 ML VIAL IV PRN (13:45)
[2023-11-10] MEDS: ACCU-CHEK COMFORT CURVE STRIP VI SCH (17:50)
[2023-11-10] MEDS: InsuLIN REG 1unit/0.01ml Soln (100units/ml) SC SCH (17:54)
[2023-11-10] MEDS: HYDROCORTISONE ACET 25 MG RECTAL SUPP PR SCH (18:00)
[2023-11-10] MEDS: PIPERACILLIN-TAZOB 3.375GM 100 ML IV SCH (18:50)
[2023-11-10] MEDS: ACETAMINOPHEN 325 MG TAB PO PRN (22:20)
[2023-11-10] MEDS: DOCUSATE SOD 100 MG CAP PO SCH (22:20)
[2023-11-10] MEDS: PANTOPRAZOLE 40 MG/10 ML VIAL INJ IV SCH (22:20)
[2023-11-11 06:13] LABS: Basophils # (auto) 0.1 10 ^3/uL (0-0.2); Basophils % (auto) 0.3 % (0.0-2.0); Eosinophils # (auto) 0 10 ^3/uL (0-0.8); Hematocrit 37.5 % (36.0-46.0); Hemoglobin 12.3 g/dL (12.2-16.2); Lymphocytes # (auto) 4.2 10 ^3/uL (0.4-5.4); Lymphocytes % (auto) 26.1 % (10.0-50.0); Mean Corpuscular Hemoglobin 26.7 pg (28.0-32.0); Mean Corpuscular Hgb Conc. 32.7 g/dL (32.0-36.0); Mean Corpuscular Volume 81.6 fL (80.0-100.0); Monocytes # (auto) 0.6 10 ^3/uL (0-1.3); Monocytes % (auto) 3.7 % (0.0-12.0); Neutrophils # (auto) 11.4 10 ^3/uL (1.6-8.6); Neutrophils % (auto) 69.9 % (37.0-80.0); Nucleated Red Blood Cells % 0.1 %; Red Cell Distribution Width 19.7 % (11.8-14.3); White Blood Cell 16.3 10^3/uL (4.4-10.8)
[2023-11-11 06:27] LABS: Alanine Aminotransferase 82 U/L (7-40); Alkaline Phosphatase 92 U/L (46-116); Anion Gap 7 (5-15); Aspartate Aminotransferase 48 U/L (13-40); BUN/Creatinine Ratio 38.2 (10.0-20.0); Bilirubin, Total 0.4 mg/dL (0.2-1.0); Blood Urea Nitrogen 21 mg/dL (9-23); Calcium 9.3 mg/dL (8.5-10.1); Carbon Dioxide 27 mmol/L (20-30); Chloride 106 mmol/L (98-107); Glucose 130 mg/dL (74-106); Potassium 3.7 mmol/L (3.5-5.1); Sodium 140 mmol/L (136-145); Total Protein 7.1 g/dL (5.7-8.2)
[2023-11-11] MEDS: HYDROcodone-ACET 5/325MG TAB PO PRN (08:34)
[2023-11-11] MEDS ORDERED: PANTOPRAZOLE 40 MG/10 ML VIAL INJ IV SCH (10:00)
[2023-11-11] MEDS ORDERED: LOSARTAN POTASSIUM PO SCH (10:00)
[2023-11-11] MEDS ORDERED: HYDROCHLO PO SCH (10:00)
[2023-11-11] MEDS: PANTOPRAZOLE 40 MG/10 ML VIAL INJ IV SCH (11:33)
[2023-11-11] MEDS: cefTRIAXone 1GM/50ML D5W 50 ML IV ONE (11:33)
[2023-11-11] MEDS: LOSARTAN POTASSIUM 25 MG TAB PO SCH (11:37)
[2023-11-11] MEDS: metroNIDAZOLE 500MG/100ML 100 ML IV SCH (15:58)
[2023-11-11] MEDS: MORPHINE SULFATE INJ 2 MG/ml SYRG IV PRN (16:11)
[2023-11-11 18:37] VITALS: PULSE 18; RESP 18; O2SAT 97
[2023-11-11 20:00] VITALS: BP 102/42; PULSE 53; PULSE 68; PULSE 88; RESP 18; TEMP 98.2; O2SAT 96
[2023-11-11 21:00] VITALS: BP 108/69; PULSE 79; RESP 19; TEMP 98.1; O2SAT 98
[2023-11-12] VITALS (8 sets, daily range): BP systolic 102–147; BP diastolic 42–79; PULSE 68–102; RESP 16–20; TEMP 97.5–98.2; O2SAT 90–97
[2023-11-12 06:32] LABS: Basophils # (auto) 0.1 10 ^3/uL (0-0.2); Basophils % (auto) 0.5 % (0.0-2.0); Eosinophils # (auto) 0.1 10 ^3/uL (0-0.8); Red Cell Distribution Width 19.5 % (11.8-14.3)
[2023-11-12 06:36] LABS: Eosinophils % (auto) 0.7 % (0.0-7.0); Hematocrit 37.3 % (36.0-46.0); Lymphocytes # (auto) 5.5 10 ^3/uL (0.4-5.4); Lymphocytes % (auto) 40.1 % (10.0-50.0); Mean Corpuscular Hemoglobin 26.2 pg (28.0-32.0); Mean Corpuscular Hgb Conc. 32.1 g/dL (32.0-36.0); Mean Corpuscular Volume 81.9 fL (80.0-100.0); Monocytes # (auto) 0.9 10 ^3/uL (0-1.3); Monocytes % (auto) 6.6 % (0.0-12.0); Neutrophils # (auto) 7.1 10 ^3/uL (1.6-8.6); Neutrophils % (auto) 52.1 % (37.0-80.0); Nucleated Red Blood Cells % 0.2 %; Red Blood Cells 4.55 10^6/uL (4.0-5.20); White Blood Cell 13.6 10^3/uL (4.4-10.8)
[2023-11-12 06:50] LABS: INR 1.05 (0.9-1.15)
[2023-11-12 06:51] LABS: Alanine Aminotransferase 82 U/L (7-40); Albumin 3.6 g/dL (3.2-4.8); Alkaline Phosphatase 75 U/L (46-116); Anion Gap 8 (5-15); Aspartate Aminotransferase 64 U/L (13-40); BUN/Creatinine Ratio 35.6 (10.0-20.0); Bilirubin, Total 0.4 mg/dL (0.2-1.0); Blood Urea Nitrogen 16 mg/dL (9-23); Calcium 8.9 mg/dL (8.5-10.1); Carbon Dioxide 27 mmol/L (20-30); Chloride 108 mmol/L (98-107); Glucose 106 mg/dL (74-106); Potassium 3.5 mmol/L (3.5-5.1); Sodium 143 mmol/L (136-145); Total Protein 6.4 g/dL (5.7-8.2)
[2023-11-12 06:57] LABS: Urine Bacteria NONE SEEN /hpf (None Seen); Urine Blood Negative /uL (Negative); Urine Clarity Clear (Clear); Urine Color Yellow (Yellow); Urine Mucus FEW (None Seen); Urine Protein, UAD Negative (Negative); Urine Specific Gravity 1.027 (1.001-1.035); Urine Urobilinogen Normal (Negative); Urine WBC 2 /hpf (0 - 5); Urine pH 5.5 (5.0-8.0)
[2023-11-12] MEDS: cefTRIAXone 1GM/50ML D5W 50 ML IV SCH (09:36)
[2023-11-12] MEDS: GOLYTELY 4L KIT PO ONE (14:00)
[2023-11-12] MEDS: D5W/SOD CHL 0.45%/KCL 40MEQ 1,000 ML IV SCH (14:48)
[2023-11-13] VITALS (8 sets, daily range): BP systolic 103–136; BP diastolic 55–83; PULSE 69–88; RESP 16–21; TEMP 97.7–98.1; O2SAT 95–99
[2023-11-13] MEDS: D5W/SOD CHL 0.45%/KCL 40MEQ 1,000 ML IV SCH (01:56)
[2023-11-13] MEDS: GOLYTELY 4L KIT PO ONE (05:47)
[2023-11-13 05:55] LABS: Basophils # (auto) 0.1 10 ^3/uL (0-0.2); Basophils % (auto) 0.7 % (0.0-2.0); Eosinophils # (auto) 0.1 10 ^3/uL (0-0.8); Hemoglobin 12.3 g/dL (12.2-16.2); Lymphocytes # (auto) 5.7 10 ^3/uL (0.4-5.4); Monocytes # (auto) 0.8 10 ^3/uL (0-1.3); Nucleated Red Blood Cells % 0.1 %
[2023-11-13 05:58] LABS: Hematocrit 37.7 % (36.0-46.0); Lymphocytes % (auto) 48.6 % (10.0-50.0); Mean Corpuscular Hemoglobin 26.7 pg (28.0-32.0); Mean Corpuscular Hgb Conc. 32.5 g/dL (32.0-36.0); Mean Corpuscular Volume 81.9 fL (80.0-100.0); Monocytes % (auto) 6.9 % (0.0-12.0); Neutrophils % (auto) 42.8 % (37.0-80.0); Red Blood Cells 4.61 10^6/uL (4.0-5.20); Red Cell Distribution Width 19.5 % (11.8-14.3); White Blood Cell 11.6 10^3/uL (4.4-10.8)
[2023-11-13 06:06] LABS: Calcium 9.1 mg/dL (8.7-10.4); Chloride 106 mmol/L (98-107); Potassium 3.7 mmol/L (3.5-5.1); Sodium 141 mmol/L (136-145)
[2023-11-13 06:07] LABS: Anion Gap 8 (5-15); Carbon Dioxide 27 mmol/L (20-30)
[2023-11-13 06:12] LABS: BUN/Creatinine Ratio 17.4 (10.0-20.0); Blood Urea Nitrogen 8 mg/dL (9-23); Glucose 109 mg/dL (74-106)
[2023-11-13] MEDS: MAGNESIUM CITRATE SOLUTION 300 ML BTL PO ONE (06:13)
[2023-11-13] MEDS ORDERED: FLUMAZENIL 0.1 MG/ML INJ 10ML MDV IV ONE (08:54)
[2023-11-13] MEDS ORDERED: NALOXONE HCL 0.4 MG/ML VIAL ONE (08:54)
[2023-11-13] MEDS ORDERED: MIDAZOLAM HCL 5 MG/ML-1ML VIAL ONE (08:54)
[2023-11-13] MEDS ORDERED: SODIUM CHLORIDE LOCK 0 ML ONE (08:54)
[2023-11-13] MEDS ORDERED: diphenhdrAMINE HCL 50 MG/1 ML VL ONE (08:55)
[2023-11-13] MEDS ORDERED: fentaNYL CITRATE 100 MCG/2 ML VL ONE ×2 (08:55→11:12)
[2023-11-13] MEDS ORDERED: PROPOFOL 10 MG/ML 20 ML IV ONE (11:13)
[2023-11-13] MEDS ORDERED: ONDANSETRON HCL 4 MG/2 ML VIAL IV PRN (12:30)
[2023-11-13] MEDS ORDERED: DOCUSATE SOD 100 MG CAP PO PRN (13:00)
[2023-11-13] MEDS: HYDROCORTISONE ACET 25 MG RECTAL SUPP PR SCH (22:07)
[2023-11-14] VITALS (8 sets, daily range): BP systolic 109–141; BP diastolic 52–84; PULSE 70–105; RESP 14–18; TEMP 97.5–98.1; O2SAT 93–95
[2023-11-15] VITALS (8 sets, daily range): BP systolic 108–135; BP diastolic 52–82; PULSE 80–102; RESP 16–18; TEMP 97.8–98.4; O2SAT 92–96
[2023-11-15 20:43] LABS: INR 1.04 (0.9-1.15); Partial Thromboplastin Time 26.5 SEC (24.5-34.5); Prothrombin Time 10.9 sec (9.3-11.8)
[2023-11-16] VITALS (8 sets, daily range): BP systolic 12–149; BP diastolic 56–90; PULSE 69–102; RESP 18–19; TEMP 97.5–97.9; O2SAT 94–100
[2023-11-16 07:23] LABS: Urine Bacteria FEW /hpf (None Seen); Urine Blood Negative /uL (Negative); Urine Clarity Clear (Clear); Urine Color Yellow (Yellow); Urine Mucus FEW (None Seen); Urine Protein, UAD Negative (Negative); Urine Specific Gravity 1.021 (1.001-1.035); Urine Urobilinogen Normal (Negative); Urine WBC 1 /hpf (0 - 5); Urine pH 5.5 (5.0-8.0)
[2023-11-16] MEDS: GELATIN 1 SPONGE SIZE 100 TOP ONE (10:21)
[2023-11-16] MEDS: LIDOCAINE 2% JELLY 11ml (GLYDO) ONE (10:21)
[2023-11-16] MEDS ORDERED: fentaNYL CITRATE 100 MCG/2 ML VL ONE (10:49)
[2023-11-16] MEDS ORDERED: MIDAZOLAM HCL 2MG/2ML 2ml VIAL (1mg/ml) ONE (10:49)
[2023-11-16] MEDS ORDERED: MEPERIDINE HCL (50 MG/ML) 1 ML VIAL ONE (10:51)
[2023-11-16] MEDS ORDERED: PROPOFOL 10 MG/ML 20 ML IV ONE (10:52)
[2023-11-16] MEDS ORDERED: ONDANSETRON HCL 4 MG/2 ML VIAL ONE (10:52)
[2023-11-16] MEDS ORDERED: DexAMETHasone SOD PHOS 10MG/1ML VIAL INJ ONE (10:52)
[2023-11-16] MEDS: BUPIVACAINE 0.25% INJ 50ML VIAL ONE (11:21)
[2023-11-16] MEDS: KETOROLAC TROMETH 30 MG/ML 1ML VIAL IV ONE (11:45)
[2023-11-16] MEDS ORDERED: MIDAZOLAM HCL 2MG/2ML 2ml VIAL (1mg/ml) IV PRN (11:45)
[2023-11-16] MEDS ORDERED: ePHEDrine SULFATE 50 MG/ML AMP IV PRN (11:45)
[2023-11-16] MEDS ORDERED: MORPHINE SULFATE 4 MG/ML SYR/VIAL IV PRN (11:45)
[2023-11-16] MEDS ORDERED: LABETALOL HCL 5 MG/ML 4ML SYRINGE IV PRN (11:45)
[2023-11-16] MEDS ORDERED: hydrALAZINE HCL 20 MG/ML VL IV PRN (11:45)
[2023-11-16] MEDS: ONDANSETRON HCL 4 MG/2 ML VIAL IV ONE (11:45)
[2023-11-16] MEDS: HYDROmorphone HCL 2 MG/ML VL/or syr IV PRN (12:26)
[2023-11-17] VITALS (8 sets, daily range): BP systolic 117–155; BP diastolic 69–83; PULSE 72–124; RESP 18–20; TEMP 97.5–98.7; O2SAT 94–97
[2023-11-17 06:17] LABS: Basophils # (auto) 0 10 ^3/uL (0-0.2); Basophils % (auto) 0.1 % (0.0-2.0); Eosinophils # (auto) 0 10 ^3/uL (0-0.8); Hematocrit 36.4 % (36.0-46.0); Hemoglobin 11.9 g/dL (12.2-16.2); Lymphocytes # (auto) 3.8 10 ^3/uL (0.4-5.4); Lymphocytes % (auto) 23.5 % (10.0-50.0); Mean Corpuscular Hemoglobin 27.1 pg (28.0-32.0); Mean Corpuscular Hgb Conc. 32.6 g/dL (32.0-36.0); Mean Corpuscular Volume 83.1 fL (80.0-100.0); Monocytes # (auto) 0.7 10 ^3/uL (0-1.3); Monocytes % (auto) 4.1 % (0.0-12.0); Neutrophils # (auto) 11.8 10 ^3/uL (1.6-8.6); Neutrophils % (auto) 72.3 % (37.0-80.0); Nucleated Red Blood Cells % 0.1 %; Red Blood Cells 4.38 10^6/uL (4.0-5.20); Red Cell Distribution Width 19.5 % (11.8-14.3); White Blood Cell 16.4 10^3/uL (4.4-10.8)
[2023-11-17 06:29] LABS: Alanine Aminotransferase 43 U/L (7-40); Albumin 3.6 g/dL (3.2-4.8); Alkaline Phosphatase 61 U/L (46-116); Anion Gap 8 (5-15); Aspartate Aminotransferase 23 U/L (13-40); Bilirubin, Total 0.3 mg/dL (0.2-1.0); Blood Urea Nitrogen 12 mg/dL (9-23); Calcium 8.9 mg/dL (8.5-10.1); Carbon Dioxide 24 mmol/L (20-30); Chloride 110 mmol/L (98-107); Glucose 129 mg/dL (74-106); Potassium 3.9 mmol/L (3.5-5.1); Sodium 142 mmol/L (136-145); Total Protein 6.5 g/dL (5.7-8.2)
[2023-11-18 05:00] VITALS: BP 165/90; PULSE 75; RESP 19; TEMP 97.4; O2SAT 96
[2023-11-18 06:22] LABS: Basophils # (auto) 0 10 ^3/uL (0-0.2); Basophils % (auto) 0.3 % (0.0-2.0); Eosinophils # (auto) 0.1 10 ^3/uL (0-0.8); Eosinophils % (auto) 0.5 % (0.0-7.0); Mean Corpuscular Volume 82.6 fL (80.0-100.0); Neutrophils # (auto) 8.6 10 ^3/uL (1.6-8.6); Neutrophils % (auto) 59.5 % (37.0-80.0); Nucleated Red Blood Cells % 0.1 %; White Blood Cell 14.5 10^3/uL (4.4-10.8)
[2023-11-18 06:25] LABS: Hemoglobin 12.1 g/dL (12.2-16.2); Lymphocytes # (auto) 4.7 10 ^3/uL (0.4-5.4); Lymphocytes % (auto) 32.2 % (10.0-50.0); Mean Corpuscular Hgb Conc. 32.7 g/dL (32.0-36.0); Monocytes # (auto) 1.1 10 ^3/uL (0-1.3); Monocytes % (auto) 7.5 % (0.0-12.0); Red Blood Cells 4.48 10^6/uL (4.0-5.20); Red Cell Distribution Width 19.2 % (11.8-14.3)
[2023-11-18 06:35] LABS: Anion Gap 4 (5-15); Carbon Dioxide 28 mmol/L (20-30); Chloride 110 mmol/L (98-107); Potassium 3.6 mmol/L (3.5-5.1); Sodium 142 mmol/L (136-145)
[2023-11-18 06:41] LABS: Blood Urea Nitrogen 12 mg/dL (9-23); Glucose 104 mg/dL (74-106)
[2023-11-18 08:00] VITALS: RESP 20; O2SAT 95
[2023-11-18 10:21] VITALS: BP 142/72; PULSE 73; RESP 17; TEMP 97.3; O2SAT 96
[2023-11-18] MEDS ORDERED: MET500T PO (12:00)
[2023-11-18] MEDS ORDERED: LEVO500T91 PO (12:00)
[2023-11-18 12:26] VITALS: BP 135/68; PULSE 72; RESP 18; TEMP 36.3; O2SAT 97
[2023-11-18 12:54] VITALS: BP 144/86; PULSE 74; RESP 19; TEMP 97.4; O2SAT 96
== END 2023-11-18 13:48 | disposition home or self-care (01) | DRG 854 ==
LOC: ER 11:05 → TELE 13:45 → TELE-WESTW 11-11 18:11 → WEST WING 11-17 20:52
PROVIDERS: ADMIT Nurse Practitioner Family; ATTEND Internal Medicine
PROC: 0DJD8ZZ Inspection of Lower Intestinal Tract, Via Natural or Artificial Opening Endoscopic (ICD-10-PCS; principal; 2023-11-13 12:05)
PROC: 0D9Q8ZZ Drainage of Anus, Via Natural or Artificial Opening Endoscopic (ICD-10-PCS; 2023-11-16)
DX: A41.9 Sepsis, unspecified organism (principal); K61.0 Anal abscess; Z68.43 Body mass index [BMI] 50.0-59.9, adult; E78.5 Hyperlipidemia, unspecified; E11.9 Type 2 diabetes mellitus without complications; E66.01 Morbid (severe) obesity due to excess calories; I11.0 Hypertensive heart disease with heart failure; I50.9 Heart failure, unspecified; K64.4 Residual hemorrhoidal skin tags; K42.9 Umbilical hernia without obstruction or gangrene; K43.9 Ventral hernia without obstruction or gangrene; K64.8 Other hemorrhoids; B96.89 Other specified bacterial agents as the cause of diseases classified elsewhere; K62.89 Other specified diseases of anus and rectum; M48.04 Spinal stenosis, thoracic region; Z71.3 Dietary counseling and surveillance; Z83.3 Family history of diabetes mellitus
CPT/HCPCS: 36415; 71045; 80048; 80053; 81001; 82962; 85025; 85048; 85610; 85730; 86850; 86900; 86901; 87040; 87070; 87075; 87077; 87177; 87186; 87205; 93005; 96365; 96375; C9113; G0378; J1100; J1815; J2250; J2405; J2543; J2704; J3490

== ENCOUNTER 2024-02-07 11:19 | Emergency (ER) | payer MEDICAID, OTHER ==
[~2024-02-07] VITALS: Ht 167.6 cm; Wt 126.5 kg
[~2024-02-07 11:19] MED LIST changes: -BISM262C44 PO; -CEPH250C PO; -IBUP-1455 PO; +LEVO500T91 PO; +LOSA100T25 PO; +MELO7.5T7 PO; +MET500T PO; +METF-370 PO; +POTA-220 PO; -PROC10TA6 PO
[2024-02-07] MEDS: ONDANSETRON HCL 4 MG/2 ML VIAL IM ONE (13:55)
[2024-02-07 13:57] VITALS: TEMP 98.4; O2SAT 94
[2024-02-07] MEDS: HYDROmorphone HCL 2 MG/ML VL/or syr IM ONE (13:57)
[2024-02-07 14:40] VITALS: BP 112/62; PULSE 89; RESP 18
[2024-02-07 15:25] LABS: Urine Bacteria FEW /hpf (None Seen); Urine Blood Negative /uL (Negative); Urine Clarity Clear (Clear); Urine Color Yellow (Yellow); Urine Mucus FEW (None Seen); Urine Protein, UAD TRACE (Negative); Urine Specific Gravity 1.025 (1.001-1.035); Urine Urobilinogen Normal (Negative); Urine WBC 2 /hpf (0 - 5)
[2024-02-07] MEDS ORDERED: HYDR-4902 PO (16:23)
[2024-02-07] MEDS: HYDROcodone-ACET 10/325MG TAB PO ONE (16:53)
[2024-02-07] MEDS: KETOROLAC TROMETH 60MG/2ML VIAL IM ONE (16:53)
== END 2024-02-07 16:58 | disposition home or self-care (01) ==
LOC: ER 11:19
DX: G89.29 Other chronic pain (principal); M54.50 Low back pain, unspecified; I11.0 Hypertensive heart disease with heart failure; I50.9 Heart failure, unspecified; E11.9 Type 2 diabetes mellitus without complications; E78.5 Hyperlipidemia, unspecified; Z90.49 Acquired absence of other specified parts of digestive tract
CPT/HCPCS: 81001; 82962; 93005; 96372; 99284; J1170; J1885; J2405

== ENCOUNTER 2024-03-10 11:10 | Inpatient (IN) | payer MEDICAID, OTHER ==
[~2024-03-10] VITALS: Ht 167.6 cm; Wt 118.7 kg
[2024-03-10] VITALS (7 sets, daily range): BP systolic 116–123; BP diastolic 57–78; PULSE 66–87; RESP 13–18; TEMP 97.8–99.8; O2SAT 90–98
[~2024-03-10 11:10] MED LIST changes: +HYDR-4902 PO
[2024-03-10 12:15] LABS: Basophils # (auto) 0.1 10 ^3/uL (0-0.2); Basophils % (auto) 0.5 % (0.0-2.0); Eosinophils # (auto) 0.4 10 ^3/uL (0-0.8); Monocytes # (auto) 0.9 10 ^3/uL (0-1.3); Neutrophils % (auto) 55.5 % (37.0-80.0)
[2024-03-10 12:19] LABS: Eosinophils % (auto) 2.7 % (0.0-7.0); Hematocrit 37.6 % (36.0-46.0); Hemoglobin 12.3 g/dL (12.2-16.2); Lymphocytes # (auto) 4.8 10 ^3/uL (0.4-5.4); Lymphocytes % (auto) 34.8 % (10.0-50.0); Mean Corpuscular Hemoglobin 26.7 pg (28.0-32.0); Mean Corpuscular Hgb Conc. 32.7 g/dL (32.0-36.0); Mean Corpuscular Volume 81.7 fL (80.0-100.0); Monocytes % (auto) 6.5 % (0.0-12.0); Neutrophils # (auto) 7.7 10 ^3/uL (1.6-8.6); Nucleated Red Blood Cells % 0.2 %; White Blood Cell 13.8 10^3/uL (4.4-10.8)
[2024-03-10 12:33] LABS: Chloride 104 mmol/L (98-107); Potassium 3.1 mmol/L (3.5-5.1); Sodium 141 mmol/L (136-145)
[2024-03-10 12:34] LABS: Anion Gap 9 (5-15); Carbon Dioxide 28 mmol/L (20-30)
[2024-03-10 12:35] LABS: Calcium 9.8 mg/dL (8.7-10.4)
[2024-03-10 12:40] LABS: BUN/Creatinine Ratio 33.9 (10.0-20.0); Blood Urea Nitrogen 20 mg/dL (9-23); Glucose 112 mg/dL (74-106)
[2024-03-10] MEDS: SODIUM CHLORIDE 0.9% 500 ML IVB ONE (13:10)
[2024-03-10] MEDS: ONDANSETRON HCL 4 MG/2 ML VIAL IV ONE (13:57)
[2024-03-10] MEDS: POTASSIUM CHL 20MEQ/100ML 100 ML IV ONE (13:58)
[2024-03-10] MEDS ORDERED: DOCUSATE SOD 100 MG CAP PO PRN (15:30)
[2024-03-10] MEDS ORDERED: ONDANSETRON HCL 4 MG/2 ML VIAL IV PRN (15:30)
[2024-03-10] MEDS ORDERED: DEXTROSE (50%) 50ML SYRG IV PRN (16:45)
[2024-03-10] MEDS: ACCU-CHEK COMFORT CURVE STRIP VI SCH (17:00)
[2024-03-10] MEDS: InsuLIN REG 1unit/0.01ml Soln (100units/ml) SC SCH (17:53)
[2024-03-10] MEDS: SODIUM CHLOR 0.9% PF (SALINE LOCK) 10ML VIAL/SYR IV SCH (22:00)
[2024-03-10 22:30] LABS: Basophils # (auto) 0.1 10 ^3/uL (0-0.2); Eosinophils # (auto) 0.4 10 ^3/uL (0-0.8); Hematocrit 37.4 % (36.0-46.0); Lymphocytes # (auto) 3.5 10 ^3/uL (0.4-5.4); Monocytes # (auto) 0.9 10 ^3/uL (0-1.3); Neutrophils # (auto) 7.6 10 ^3/uL (1.6-8.6)
[2024-03-10 22:33] LABS: Basophils % (auto) 0.7 % (0.0-2.0); Eosinophils % (auto) 2.9 % (0.0-7.0); Hemoglobin 12.2 g/dL (12.2-16.2); Lymphocytes % (auto) 28.3 % (10.0-50.0); Mean Corpuscular Hemoglobin 26.7 pg (28.0-32.0); Mean Corpuscular Hgb Conc. 32.6 g/dL (32.0-36.0); Mean Corpuscular Volume 81.8 fL (80.0-100.0); Monocytes % (auto) 7.5 % (0.0-12.0); Neutrophils % (auto) 60.6 % (37.0-80.0); Red Blood Cells 4.57 10^6/uL (4.0-5.20); Red Cell Distribution Width 15.8 % (11.8-14.3); White Blood Cell 12.5 10^3/uL (4.4-10.8)
[2024-03-10 22:46] LABS: Chloride 107 mmol/L (98-107); Potassium 3.2 mmol/L (3.5-5.1); Sodium 142 mmol/L (136-145)
[2024-03-10 22:47] LABS: Anion Gap 6 (5-15); Calcium 9.4 mg/dL (8.7-10.4); Carbon Dioxide 29 mmol/L (20-30)
[2024-03-10 22:52] LABS: BUN/Creatinine Ratio 26.7 (10.0-20.0); Blood Urea Nitrogen 16 mg/dL (9-23); Glucose 113 mg/dL (74-106)
[2024-03-10] MEDS: ACETAMINOPHEN 325 MG TAB PO PRN (23:17)
[2024-03-11] VITALS (8 sets, daily range): BP systolic 93–152; BP diastolic 50–80; PULSE 77–93; RESP 16–19; TEMP 97.6–97.9; O2SAT 91–96
[2024-03-11] MEDS: Losartan Potassium & Hydrochlo (Hyzaar) 1 TAB PO SCH (08:46)
[2024-03-11] MEDS: ENOXAPARIN SOD 40 MG/0.4 ML SYRINGE SC SCH (08:46)
[2024-03-11 11:53] LABS: Urine Bacteria None Seen /hpf (None Seen)
[2024-03-11] MEDS ORDERED: HYDR-4072 PO (11:57)
[2024-03-11] MEDS ORDERED: GABA-1308 PO (11:57)
[2024-03-11 12:21] LABS: Urine Blood Negative /uL (Negative); Urine Clarity Turbid (Clear); Urine Color Yellow (Yellow); Urine Mucus FEW (None Seen); Urine Protein, UAD TRACE (Negative); Urine Specific Gravity 1.028 (1.001-1.035); Urine Urobilinogen Normal (Negative); Urine WBC 14 /hpf (0 - 5); Urine pH 5.5 (5.0-9.0)
[2024-03-11] MEDS: POTASSIUM EFFERVESENT TAB 25 MEQ PO ONE (14:11)
[2024-03-11] MEDS: IBUPROFEN 400 MG TAB PO PRN (14:42)
[2024-03-11] MEDS: SODIUM CHLORIDE 0.9% 1,000 ML IV SCH (14:43)
[2024-03-11] MEDS: PANTOPRAZOLE 40 MG/10 ML VIAL INJ IV ONE (16:27)
[2024-03-11 17:24] LABS: Magnesium 1.7 mg/dL (1.6-2.6)
[2024-03-12 01:00] VITALS: BP 127/87; PULSE 95; RESP 19; TEMP 97.7; O2SAT 94
[2024-03-12] MEDS: HYDROcodone-ACET 5/325MG TAB PO ONE (02:07)
[2024-03-12 05:00] VITALS: BP 103/40; PULSE 76; RESP 17; TEMP 97.8; O2SAT 92
[2024-03-12 05:23] LABS: Basophils # (auto) 0.1 10 ^3/uL (0-0.2); Basophils % (auto) 1.2 % (0.0-2.0); Eosinophils # (auto) 0.4 10 ^3/uL (0-0.8); Eosinophils % (auto) 3.6 % (0.0-7.0); Hematocrit 36.6 % (36.0-46.0); Lymphocytes % (auto) 37.4 % (10.0-50.0); Mean Corpuscular Hgb Conc. 32.8 g/dL (32.0-36.0); Mean Corpuscular Volume 82.3 fL (80.0-100.0); Monocytes # (auto) 0.8 10 ^3/uL (0-1.3); Monocytes % (auto) 7.3 % (0.0-12.0); Neutrophils # (auto) 5.5 10 ^3/uL (1.6-8.6); Neutrophils % (auto) 50.5 % (37.0-80.0); Nucleated Red Blood Cells % 0.1 %; Red Blood Cells 4.45 10^6/uL (4.0-5.20); Red Cell Distribution Width 15.9 % (11.8-14.3); White Blood Cell 10.8 10^3/uL (4.4-10.8)
[2024-03-12 05:38] LABS: Alanine Aminotransferase 39 U/L (7-40); Albumin 3.8 g/dL (3.2-4.8); Alkaline Phosphatase 54 U/L (46-116); Anion Gap 7 (5-15); Aspartate Aminotransferase 49 U/L (13-40); BUN/Creatinine Ratio 21.6 (10.0-20.0); Bilirubin, Total 0.4 mg/dL (0.2-1.0); Blood Urea Nitrogen 11 mg/dL (9-23); Calcium 9.5 mg/dL (8.7-10.4); Carbon Dioxide 27 mmol/L (20-30); Chloride 107 mmol/L (98-107); Glucose 115 mg/dL (74-106); Potassium 3.1 mmol/L (3.5-5.1); Sodium 141 mmol/L (136-145); Total Protein 6.6 g/dL (5.7-8.2)
[2024-03-12 08:00] VITALS: PULSE 72; RESP 17
[2024-03-12 08:25] VITALS: BP 148/69; PULSE 75; RESP 17; TEMP 97.6; O2SAT 93
[2024-03-12] MEDS ORDERED: MID10T PO (09:44)
[2024-03-12] MEDS: MIDODRINE HCL 10 MG TAB PO ONE (10:04)
[2024-03-12] MEDS: PANTOPRAZOLE 40 MG/10 ML VIAL INJ IV SCH (10:04)
[2024-03-12 11:30] VITALS: BP 132/72; PULSE 76; RESP 16; TEMP 97.6; O2SAT 95
[2024-03-12] MEDS: MIDODRINE HCL 10 MG TAB PO SCH (12:00)
[2024-03-12 12:39] VITALS: BP 148/69; PULSE 75; RESP 17; TEMP 36.4; O2SAT 93
== END 2024-03-12 15:00 | disposition home or self-care (01) | DRG 74 ==
LOC: EDBD 11:10 → ER 11:10 → TELE 15:23 → TELE-CENTR 22:37
PROVIDERS: ADMIT Internal Medicine Geriatric Medicine; ATTEND Internal Medicine Geriatric Medicine
DX: G90.8 Other disorders of autonomic nervous system (principal); Z68.41 Body mass index [BMI] 40.0-44.9, adult; I65.22 Occlusion and stenosis of left carotid artery; I95.1 Orthostatic hypotension; E86.0 Dehydration; E87.6 Hypokalemia; E66.01 Morbid (severe) obesity due to excess calories; M13.862 Other specified arthritis, left knee; F32.A Depression, unspecified; K43.9 Ventral hernia without obstruction or gangrene; I50.9 Heart failure, unspecified; I11.0 Hypertensive heart disease with heart failure; Z90.49 Acquired absence of other specified parts of digestive tract; Z83.3 Family history of diabetes mellitus; Z79.84 Long term (current) use of oral hypoglycemic drugs; Z82.49 Family history of ischemic heart disease and other diseases of the circulatory system
CPT/HCPCS: 36415; 70450; 71046; 80048; 80053; 80061; 81001; 82607; 82962; 83036; 83735; 84443; 84484; 85025; 93005; 93306; 93886; G0378; J1815; J2405; J2470; J3480

== ENCOUNTER 2024-03-15 21:52 | Emergency (ER) | payer MEDICAID, OTHER ==
[~2024-03-15] VITALS: Ht 167.6 cm; Wt 114.0 kg
[~2024-03-15 21:52] MED LIST changes: +GABA-1308 PO; +HYDR-4072 PO; -HYDR-4902 PO; -LEVO500T91 PO; +MID10T PO
[2024-03-15 23:43] LABS: Basophils # (auto) 0.2 10 ^3/uL (0-0.2); Eosinophils # (auto) 0.3 10 ^3/uL (0-0.8); Eosinophils % (auto) 1.7 % (0.0-7.0); Hemoglobin 13.5 g/dL (12.2-16.2); Lymphocytes # (auto) 4.3 10 ^3/uL (0.4-5.4); Lymphocytes % (auto) 23.8 % (10.0-50.0); Mean Corpuscular Hemoglobin 27.1 pg (28.0-32.0); Mean Corpuscular Hgb Conc. 33.7 g/dL (32.0-36.0); Mean Corpuscular Volume 80.5 fL (80.0-100.0); Monocytes # (auto) 1.3 10 ^3/uL (0-1.3); Neutrophils % (auto) 66.5 % (37.0-80.0); Red Blood Cells 4.97 10^6/uL (4.0-5.20); Red Cell Distribution Width 15.8 % (11.8-14.3)
[2024-03-16 00:07] LABS: Alanine Aminotransferase 47 U/L (7-40); Albumin 4.5 g/dL (3.2-4.8); Alkaline Phosphatase 67 U/L (46-116); Anion Gap 10 (5-15); Aspartate Aminotransferase 60 U/L (13-40); BUN/Creatinine Ratio 21.1 (10.0-20.0); Blood Urea Nitrogen 16 mg/dL (9-23); Calcium 10.2 mg/dL (8.7-10.4); Carbon Dioxide 27 mmol/L (20-30); Chloride 104 mmol/L (98-107); Glucose 157 mg/dL (74-106); Lipase 59 U/L (12-53); Potassium 2.9 mmol/L (3.5-5.1); Sodium 141 mmol/L (136-145)
[2024-03-16 00:08] LABS: Bilirubin, Total 0.6 mg/dL (0.2-1.0); Total Protein 8.1 g/dL (5.7-8.2)
[2024-03-16 03:15] VITALS: PULSE 81; RESP 16; O2SAT 97
[2024-03-16] MEDS: HYDROcodone-ACET 10/325MG TAB PO ONE (03:17)
[2024-03-16 08:00] VITALS: TEMP 97.7
[2024-03-16] MEDS: FLEET MINERAL OIL ENEMA 133 ML PR ONE (08:12)
[2024-03-16] MEDS: POTASSIUM EFFERVESENT TAB 25 MEQ PO ONE (08:12)
[2024-03-16 09:01] VITALS: PULSE 81; RESP 16; O2SAT 95
[2024-03-16 11:52] VITALS: BP 115/73; PULSE 83; RESP 24; O2SAT 95
[2024-03-16] MEDS ORDERED: SENN1CAP4 PO (12:43)
== END 2024-03-16 13:27 | disposition home or self-care (01) ==
LOC: ER 21:52
DX: R10.84 Generalized abdominal pain (principal); K59.00 Constipation, unspecified; E87.6 Hypokalemia; R74.8 Abnormal levels of other serum enzymes; E11.65 Type 2 diabetes mellitus with hyperglycemia; E78.5 Hyperlipidemia, unspecified; I11.0 Hypertensive heart disease with heart failure; I50.89 Other heart failure; Z90.49 Acquired absence of other specified parts of digestive tract; Z98.890 Other specified postprocedural states; Z79.899 Other long term (current) drug therapy; Z79.891 Long term (current) use of opiate analgesic
CPT/HCPCS: 36415; 74176; 80053; 83690; 85025

== ENCOUNTER 2024-03-23 08:37 | Day surgery (SDC) | payer MEDICAID, OTHER ==
[2024-03-21 14:57] LABS: Eosinophils # (auto) 0.4 10 ^3/uL (0-0.8); Lymphocytes # (auto) 4.4 10 ^3/uL (0.4-5.4); Monocytes % (auto) 7.3 % (0.0-12.0)
[2024-03-21 14:58] LABS: Basophils # (auto) 0.2 10 ^3/uL (0-0.2); Basophils % (auto) 1.2 % (0.0-2.0); Eosinophils % (auto) 3.2 % (0.0-7.0); Hematocrit 41.8 % (36.0-46.0); Hemoglobin 13.4 g/dL (12.2-16.2); Lymphocytes % (auto) 34.7 % (10.0-50.0); Mean Corpuscular Hemoglobin 25.8 pg (28.0-32.0); Mean Corpuscular Hgb Conc. 31.9 g/dL (32.0-36.0); Mean Corpuscular Volume 80.7 fL (80.0-100.0); Monocytes # (auto) 0.9 10 ^3/uL (0-1.3); Neutrophils # (auto) 6.9 10 ^3/uL (1.6-8.6); Neutrophils % (auto) 53.6 % (37.0-80.0); Nucleated Red Blood Cells % 0.1 %; Red Blood Cells 5.18 10^6/uL (4.0-5.20); Red Cell Distribution Width 15.9 % (11.8-14.3); Urine Bacteria FEW /hpf (None Seen); Urine Blood Negative /uL (Negative); Urine Clarity Turbid (Clear); Urine Color Yellow (Yellow); Urine Mucus FEW (None Seen); Urine Protein, UAD TRACE (Negative); Urine Specific Gravity 1.025 (1.001-1.035); Urine Urobilinogen Normal (Negative); Urine WBC 5 /hpf (0 - 5); Urine pH 7.5 (5.0-9.0); White Blood Cell 12.8 10^3/uL (4.4-10.8)
[2024-03-21 15:14] LABS: INR 1.06 (0.9-1.15); Partial Thromboplastin Time 25.1 SEC (24.5-34.5); Prothrombin Time 11.2 sec (9.3-11.8)
[2024-03-21 15:32] LABS: Alanine Aminotransferase 80 U/L (7-40); Alkaline Phosphatase 72 U/L (46-116); Anion Gap 8 (5-15); Blood Urea Nitrogen 14 mg/dL (9-23); Calcium 9.9 mg/dL (8.7-10.4); Carbon Dioxide 29 mmol/L (20-30); Chloride 105 mmol/L (98-107); Glucose 136 mg/dL (74-106); Potassium 3.3 mmol/L (3.5-5.1); Sodium 142 mmol/L (136-145)
[2024-03-21 15:33] LABS: Albumin 4.2 g/dL (3.2-4.8); Aspartate Aminotransferase 130 U/L (13-40); BUN/Creatinine Ratio 21.9 (10.0-20.0); Bilirubin, Total 0.3 mg/dL (0.2-1.0); Total Protein 7.6 g/dL (5.7-8.2)
[~2024-03-23] VITALS: Ht 167.6 cm; Wt 113.4 kg
[~2024-03-23 08:37] MED LIST changes: +ACET-1908 PO; -HYDR-4072 PO; -MELO7.5T7 PO; -MET500T PO; -METF-370 PO; -MID10T PO
[2024-03-23 08:45] VITALS: TEMP 97.5
[2024-03-23] MEDS ORDERED: ceFAZolin 2 GM/D5W50ml 50 ML IV ONE (08:48)
[2024-03-23] MEDS ORDERED: SUCCINYLCHOLINE CHLORIDE 20 MG/ML 10ML VIAL IV ONE (09:24)
[2024-03-23] MEDS: LIDOCAINE W/ EPINEPHRINE 1% 20ML VIAL ONE (10:44)
[2024-03-23] MEDS: BUPIVACAINE 0.5% P/F INJ 10 ML VIAL ONE (10:44)
[2024-03-23] MEDS ORDERED: MEPERIDINE HCL (50 MG/ML) 1 ML VIAL ONE (11:11)
[2024-03-23] MEDS ORDERED: ROCURONIUM 10MG/ML 10ML VIAL IV ONE (11:12)
[2024-03-23] MEDS ORDERED: ONDANSETRON HCL 4 MG/2 ML VIAL ONE (11:12)
[2024-03-23] MEDS ORDERED: PROPOFOL 10 MG/ML 20 ML IV ONE (11:12)
[2024-03-23] MEDS ORDERED: DexAMETHasone SOD PHOS 10MG/1ML VIAL INJ ONE (11:12)
[2024-03-23 11:17] VITALS: O2SAT 96
[2024-03-23] MEDS ORDERED: fentaNYL CITRATE 100 MCG/2 ML VL ONE (11:20)
[2024-03-23] MEDS ORDERED: MIDAZOLAM HCL 2MG/2ML 2ml VIAL (1mg/ml) ONE (11:20)
[2024-03-23] MEDS ORDERED: MEPERIDINE HCL (25 MG/ML) 1ML VIAL IV PRN (11:30)
[2024-03-23] MEDS ORDERED: HYDROmorphone HCL 2 MG/ML VL/or syr IV PRN (11:30)
[2024-03-23] MEDS ORDERED: ONDANSETRON HCL 4 MG/2 ML VIAL IV ONE (11:30)
[2024-03-23] MEDS ORDERED: hydrALAZINE HCL 20 MG/ML VL IV PRN (11:30)
[2024-03-23 12:27] VITALS: BP 117/65; PULSE 78; RESP 13; O2SAT 96
== END 2024-03-23 12:32 | disposition home or self-care (01) ==
LOC: SUR 08:37
PROVIDERS: ATTEND Surgery
DX: K42.0 Umbilical hernia with obstruction, without gangrene (principal); I10 Essential (primary) hypertension; E11.9 Type 2 diabetes mellitus without complications; E78.5 Hyperlipidemia, unspecified; E66.9 Obesity, unspecified; Z68.41 Body mass index [BMI] 40.0-44.9, adult; Z79.84 Long term (current) use of oral hypoglycemic drugs; Z79.899 Other long term (current) drug therapy; Z90.49 Acquired absence of other specified parts of digestive tract
CPT/HCPCS: 36415; 49594; 80053; 81001; 82962; 85025; 85610; 85730; 86850; 86900; 86901; J0330; J0690; J1100; J2175; J2405; J2704; J3010; J3490; J2250

== ENCOUNTER → 2024-06-27 | Outpatient (CLI) | payer MEDICAID, OTHER ==
[2024-06-27 08:24] LABS: Basophils # (auto) 0.1 10 ^3/uL (0-0.2); Basophils % (auto) 0.4 % (0.0-2.0); Eosinophils # (auto) 0.1 10 ^3/uL (0-0.8); Eosinophils % (auto) 0.8 % (0.0-7.0); Hematocrit 38.7 % (36.0-46.0); Hemoglobin 12.6 g/dL (12.2-16.2); Lymphocytes # (auto) 4.7 10 ^3/uL (0.4-5.4); Lymphocytes % (auto) 29.9 % (10.0-50.0); Mean Corpuscular Hemoglobin 27.1 pg (28.0-32.0); Mean Corpuscular Hgb Conc. 32.6 g/dL (32.0-36.0); Mean Corpuscular Volume 82.9 fL (80.0-100.0); Monocytes % (auto) 6.2 % (0.0-12.0); Neutrophils # (auto) 9.8 10 ^3/uL (1.6-8.6); Neutrophils % (auto) 62.7 % (37.0-80.0); Nucleated Red Blood Cells % 0.1 %; Platelet Count (auto) 319 10^3/uL (140-450); Red Blood Cells 4.67 10^6/uL (4.0-5.20); Red Cell Distribution Width 18.3 % (11.8-14.3); White Blood Cell 15.7 10^3/uL (4.4-10.8)
[2024-06-27 09:36] LABS: Alanine Aminotransferase 69 U/L (7-40); Alkaline Phosphatase 93 U/L (46-116); Calcium 9.6 mg/dL (8.7-10.4); Triglycerides 199 mg/dL (< 150)
[2024-06-27 09:37] LABS: Albumin 4.2 g/dL (3.2-4.8); Anion Gap 8 (5-15); Aspartate Aminotransferase 34 U/L (13-40); BUN/Creatinine Ratio 38.2 (10.0-20.0); Blood Urea Nitrogen 21 mg/dL (9-23); Carbon Dioxide 28 mmol/L (20-31); Chloride 107 mmol/L (98-107); Cholesterol 301 mg/dL (< 200); Glucose 119 mg/dL (74-106); HDL Cholesterol 70 mg/dL (40-59); LDL Cholesterol 208 mg/dL (< 100); Potassium 3.7 mmol/L (3.5-5.1); Sodium 143 mmol/L (136-145)
[2024-06-27 09:38] LABS: Bilirubin, Total 0.4 mg/dL (0.2-1.0); Total Protein 7.5 g/dL (5.7-8.2)
== END | disposition home or self-care (01) ==
LOC: LAB 07:23
PROVIDERS: ATTEND Internal Medicine
DX: E11.9 Type 2 diabetes mellitus without complications (principal); E78.5 Hyperlipidemia, unspecified; E66.9 Obesity, unspecified
CPT/HCPCS: 36415; 80053; 80061; 82306; 82607; 83036; 85025

== ENCOUNTER → 2024-06-30 | Outpatient (CLI) | payer MEDICAID, OTHER | END | disposition home or self-care (01) | LOC: LAB 15:34 | PROVIDERS: ATTEND Internal Medicine | DX: E55.9 Vitamin D deficiency, unspecified (principal); R25.2 Cramp and spasm | CPT/HCPCS: 36415; 83735 ==

== ENCOUNTER → 2024-09-01 | Outpatient (CLI) | payer MEDICAID, OTHER ==
[~2024-09-01] VITALS: Ht 167.6 cm; Wt 113.4 kg
[2024-09-01] MEDS: REGADENOSON 0.4 MG/5 ML SYRG IV ONE ×2 (08:40→08:44)
--- NOTE | 2024-09-01 10:39 | DVHSR ---
APPROVED REPORT Exam: Nuclear Stress Test BMI: 0 Stress Test Details HR Max Heart Rate (APMHR): 156 bpm Target HR (85% APMHR): 133 bpm BP ECG Stress ECG Conclusion Review of the myocardial perfusion images demonstrated a small area in the distal anterior wall of mi ld intensity reduced radiotracer uptake that appears to be fixed based on review of the resting image s. This is likely secondary to breast attenuation artifact. Otherwise, there is homogeneous radiotr acer uptake throughout the rest of the left ventricular myocardium. Left ventricular volumes are nor mal. Ejection fraction is normal and is estimated at 54%. There is no significant transient ischemi c dilatation. No gated images are available to review for wall motion. Impression: 1. Low risk nuclear scan with no evidence of ischemia. 2. Normal left ventricular systolic function. NM EXAM: Myocardial Perfusion REST/STRESS Imaging Protocol: Rest Tc-99m/Stress Tc-99m 1 day Resting Data Rest SPECT myocardial perfusion imaging was performed in supine position 60 minutes following the int ravenous injection of 14.3 mCi of Tc-99m Sestamibi. Time of rest injection: 0730 Time of rest imagin Administration Route: IV Administration Site: Right AC Pharmacologic Stress Pharmacologic stress test was performed by injecting Regadenoson 0.4 mg IV push followed by the intra venous injection of 32.4 mCi of Tc-99m Sestamibi. Time of stress injection: 0844 Time of stress imagin Administration Route: IV Administration Site: Right AC Gated Stress SPECT was performed 60 minutes after stress injection. The images were gated to evaluate regional wall motion and calculate left ventricular ejection fracti on. Stress only was performed in the Supine position. Nuclear Conclusion ECG Findings: negative for ischemia Clinical Findings: negative for ischemia Nuclear Findings: negative for ischemia Exercise Capacity: not assessed Left Ventricular Function: normal Risk Study: low Review of the myocardial perfusion images demonstrated a small area in the distal anterior wall of mi ld intensity reduced radiotracer uptake that appears to be fixed based on review of the resting image s. This is likely secondary to breast attenuation artifact. Otherwise, there is homogeneous radiotr acer uptake throughout the rest of the left ventricular myocardium. Left ventricular volumes are nor mal. Ejection fraction is normal and is estimated at 54%. There is no significant transient ischemi c dilatation. No gated images are available to review for wall motion. Impression: 1. Low risk nuclear scan with no evidence of ischemia. 2. Normal left ventricular systolic function.
== END | disposition home or self-care (01) ==
LOC: XYW 07:26
PROVIDERS: ATTEND Internal Medicine
DX: M17.0 Bilateral primary osteoarthritis of knee (principal); Z01.810 Encounter for preprocedural cardiovascular examination
CPT/HCPCS: 78452; 93017; A9500; J2785

== ENCOUNTER → 2024-09-27 | Outpatient (CLI) | payer MEDICAID ==
[2024-09-27 10:49] LABS: Basophils # (auto) 0.1 10 ^3/uL (0-0.2); Basophils % (auto) 0.3 % (0.0-2.0); Eosinophils # (auto) 0.1 10 ^3/uL (0-0.8)
[2024-09-27 10:55] LABS: Eosinophils % (auto) 0.5 % (0.0-7.0); Hematocrit 39.8 % (36.0-46.0); Lymphocytes # (auto) 5.7 10 ^3/uL (0.4-5.4); Lymphocytes % (auto) 34.4 % (10.0-50.0); Mean Corpuscular Hemoglobin 27.1 pg (28.0-32.0); Mean Corpuscular Hgb Conc. 32.7 g/dL (32.0-36.0); Mean Corpuscular Volume 82.9 fL (80.0-100.0); Monocytes % (auto) 6.1 % (0.0-12.0); Neutrophils # (auto) 9.7 10 ^3/uL (1.6-8.6); Neutrophils % (auto) 58.7 % (37.0-80.0); Platelet Count (auto) 343 10^3/uL (140-450); Red Cell Distribution Width 15.4 % (11.8-14.3); White Blood Cell 16.6 10^3/uL (4.4-10.8)
[2024-09-27 11:36] LABS: HDL Cholesterol 57 mg/dL (40-59)
[2024-09-27 11:37] LABS: Cholesterol 211 mg/dL (< 200); LDL Cholesterol 127 mg/dL (< 100); Triglycerides 205 mg/dL (< 150)
== END | disposition home or self-care (01) ==
LOC: LAB 09:19
PROVIDERS: ATTEND Internal Medicine
DX: E11.9 Type 2 diabetes mellitus without complications (principal); E55.9 Vitamin D deficiency, unspecified
CPT/HCPCS: 36415; 80061; 82306; 83036; 85025

== ENCOUNTER → 2024-12-23 | Outpatient (CLI) | payer MEDICAID, OTHER ==
[2024-12-23 12:26] LABS: Alanine Aminotransferase 95 U/L (7-40); Albumin 4.5 g/dL (3.2-4.8); Alkaline Phosphatase 89 U/L (46-116); Anion Gap 11 (5-15); Aspartate Aminotransferase 60 U/L (13-40); BUN/Creatinine Ratio 53.7 (10.0-20.0); Bilirubin, Total 0.4 mg/dL (0.2-1.0); Blood Urea Nitrogen 29 mg/dL (9-23); Calcium 10.2 mg/dL (8.7-10.4); Carbon Dioxide 26 mmol/L (20-31); Chloride 107 mmol/L (98-107); Glucose 97 mg/dL (74-106); Potassium 3.6 mmol/L (3.5-5.1); Sodium 144 mmol/L (136-145); Total Protein 7.9 g/dL (5.7-8.2)
== END | disposition home or self-care (01) ==
LOC: LAB 10:52
PROVIDERS: ATTEND Internal Medicine
DX: E11.9 Type 2 diabetes mellitus without complications (principal); E55.9 Vitamin D deficiency, unspecified; Z12.11 Encounter for screening for malignant neoplasm of colon
CPT/HCPCS: 36415; 80053

== ENCOUNTER → 2024-12-29 | Outpatient (CLI) | payer MEDICAID, OTHER ==
[~2024-12-29] MED LIST changes: +ASCO500T11 GT; +BACL20TA PO; +CHOLCAP10 PO; +CYCL-837 PO; +HYDR-4902 PO; +OMEG100019 PO; +TIRZ10IN SC; +VITA100T3 PO
== END | disposition home or self-care (01) ==
LOC: LAB 13:35 → EDSTATUS 01-04 12:00
PROVIDERS: ATTEND Orthopaedic Surgery
DX: Z01.812 Encounter for preprocedural laboratory examination (principal); Z12.11 Encounter for screening for malignant neoplasm of colon; M17.12 Unilateral primary osteoarthritis, left knee
CPT/HCPCS: 82270

== ENCOUNTER → 2025-01-18 | Day surgery (SDC) | payer MEDICAID, OTHER ==
[2025-01-17 10:55] LABS: Urine Bacteria None Seen /hpf (None Seen)
[2025-01-17 11:20] LABS: Eosinophils # (auto) 0.2 10 ^3/uL (0-0.8); Neutrophils # (auto) 10.8 10 ^3/uL (1.6-8.6)
[2025-01-17 11:22] LABS: Urine Blood Negative /uL (Negative); Urine Clarity Clear (Clear); Urine Color Yellow (Yellow); Urine Mucus FEW (None Seen); Urine Protein, UAD Negative (Negative); Urine Specific Gravity 1.023 (1.001-1.035); Urine Squamous Epithelial Cell FEW /hpf (<5); Urine Urobilinogen Normal (Negative); Urine WBC 5 /HPF (0-5); Urine pH 5.5 (5.0-9.0)
[2025-01-17 11:23] LABS: Basophils # (auto) 0.2 10 ^3/uL (0-0.2); Eosinophils % (auto) 1.2 % (0.0-7.0); Hematocrit 39.5 % (36.0-46.0); Hemoglobin 12.9 g/dL (12.2-16.2); Lymphocytes # (auto) 5.2 10 ^3/uL (0.4-5.4); Mean Corpuscular Hemoglobin 26.7 pg (28.0-32.0); Mean Corpuscular Hgb Conc. 32.5 g/dL (32.0-36.0); Mean Corpuscular Volume 82.1 fL (80.0-100.0); Monocytes # (auto) 1.1 10 ^3/uL (0-1.3); Monocytes % (auto) 6.2 % (0.0-12.0); Neutrophils % (auto) 61.6 % (37.0-80.0); Nucleated Red Blood Cells % 0.1 %; Platelet Count (auto) 348 10^3/uL (140-450); Red Blood Cells 4.82 10^6/uL (4.0-5.20); Red Cell Distribution Width 16.1 % (11.8-14.3); White Blood Cell 17.5 10^3/uL (4.4-10.8)
[2025-01-17 11:32] LABS: Alkaline Phosphatase 105 U/L (46-116); Anion Gap 11 (5-15); BUN/Creatinine Ratio 37.9 (10.0-20.0); Carbon Dioxide 26 mmol/L (20-31); Chloride 105 mmol/L (98-107); Potassium 3.6 mmol/L (3.5-5.1); Sodium 142 mmol/L (136-145); Total Protein 7.5 g/dL (5.7-8.2)
[2025-01-17 11:33] LABS: Albumin 4.4 g/dL (3.2-4.8); Bilirubin, Total 0.3 mg/dL (0.2-1.0)
[2025-01-17 11:34] LABS: Alanine Aminotransferase 88 U/L (7-40); Aspartate Aminotransferase 48 U/L (13-40); Blood Urea Nitrogen 25 mg/dL (9-23); Glucose 122 mg/dL (74-106); INR 0.99 (0.9-1.15); Partial Thromboplastin Time 23.7 SEC (24.5-34.5); Prothrombin Time 10.5 sec (9.3-11.8)
[~2025-01-18] VITALS: Ht 198.1 cm; Wt 112.7 kg
[~2025-01-18] MED LIST changes: +ACETAMINOPHEN IV 100 ML IV ONE; +BUPIVACAINE 0.25% INJ 50ML VIAL ONE; +BUPIVACAINE HCL 50 ML ONE; +BUPIVACAINE W/ EPINEPH 0.5% INJ 50ML MDV IJ ONE; +CELECOXIB 100 MG CAP ONE; +DexAMETHasone SOD PHOS 10MG/1ML VIAL INJ ONE; +EPINEPHrine HCL 1 MG/1 ML AMP ONE; -GABA-1308 PO; +GABAPENTIN 300 MG CAP ONE; +GLYCOPYRROLATE 0.2 MG/ML 1ML VIAL ONE; +KETAMINE 50mg/ML 1ml syringe ONE; +KETOROLAC TROMETH 30 MG/ML 1ML VIAL ONE; +LIDOCAINE 1% INJ PF 5ML AMP ONE; -LOSA100T25 PO; +ONDANSETRON HCL 4 MG/2 ML VIAL ONE; +PROPOFOL 10 MG/ML 20 ML IV ONE; +TRANEXAMIC ACID 0 ML ONE; +VANCOMYCIN HCL 1000 MG VL ONE; +ceFAZolin 2 GM/D5W50ml 50 ML IV ONE; +fentaNYL CITRATE 100 MCG/2 ML VL ONE
[2025-01-18 06:20] VITALS: BP 160/83; PULSE 83; RESP 20; TEMP 97.3; O2SAT 95
[2025-01-18] MEDS: CELECOXIB 100 MG CAP PO ONE (06:48)
[2025-01-18] MEDS: GABAPENTIN 300 MG CAP PO ONE (06:48)
[2025-01-18] MEDS: ACETAMINOPHEN IV 1000 MG/100ML (10MG/ML) IV ONE (06:48)
== END | disposition home or self-care (01) ==
LOC: SUR 06:09
PROVIDERS: ATTEND Orthopaedic Surgery
DX: M17.12 Unilateral primary osteoarthritis, left knee (principal); Z53.8 Procedure and treatment not carried out for other reasons; I10 Essential (primary) hypertension; E78.5 Hyperlipidemia, unspecified; E11.9 Type 2 diabetes mellitus without complications; Z95.0 Presence of cardiac pacemaker; Z79.899 Other long term (current) drug therapy; Z79.4 Long term (current) use of insulin; Z98.890 Other specified postprocedural states
CPT/HCPCS: 36415; 80053; 81001; 82962; 85025; 85610; 85730; 86850; 86900; 86901; J0690; J2704; J3490; J0131; J0171; J1100; J1885; J2405

== ENCOUNTER 2025-02-09 09:40 | Outpatient (CLI) | payer MEDICAID ==
[~2025-02-09 09:40] MED LIST changes: -ACETAMINOPHEN IV 100 ML IV ONE; -BUPIVACAINE 0.25% INJ 50ML VIAL ONE; -BUPIVACAINE HCL 50 ML ONE; -BUPIVACAINE W/ EPINEPH 0.5% INJ 50ML MDV IJ ONE; -CELECOXIB 100 MG CAP ONE; -DexAMETHasone SOD PHOS 10MG/1ML VIAL INJ ONE; -EPINEPHrine HCL 1 MG/1 ML AMP ONE; -GABAPENTIN 300 MG CAP ONE; -GLYCOPYRROLATE 0.2 MG/ML 1ML VIAL ONE; -KETAMINE 50mg/ML 1ml syringe ONE; -KETOROLAC TROMETH 30 MG/ML 1ML VIAL ONE; -LIDOCAINE 1% INJ PF 5ML AMP ONE; -ONDANSETRON HCL 4 MG/2 ML VIAL ONE; -PROPOFOL 10 MG/ML 20 ML IV ONE; -TRANEXAMIC ACID 0 ML ONE; -VANCOMYCIN HCL 1000 MG VL ONE; -ceFAZolin 2 GM/D5W50ml 50 ML IV ONE; -fentaNYL CITRATE 100 MCG/2 ML VL ONE
[2025-02-09 11:03] LABS: Potassium 3.6 mmol/L (3.5-5.1)
[2025-02-09 11:55] LABS: Magnesium 1.8 mg/dL (1.6-2.6)
== END 2025-02-09 17:00 | disposition home or self-care (01) ==
LOC: LAB 09:40
PROVIDERS: ATTEND Internal Medicine
DX: I10 Essential (primary) hypertension (principal); E78.5 Hyperlipidemia, unspecified; R60.0 Localized edema
CPT/HCPCS: 36415; 83735; 84132

== ENCOUNTER → 2025-03-02 | Outpatient (CLI) | payer MEDICAID ==
[2025-03-02 16:23] LABS: Hematocrit 38.6 % (36.0-46.0); Hemoglobin 12.6 g/dL (12.2-16.2); Mean Corpuscular Hemoglobin 25.7 pg (28.0-32.0); Mean Corpuscular Volume 78.9 fL (80.0-100.0); Nucleated Red Blood Cells % 0.0 %
[2025-03-02 16:46] LABS: Albumin 4.2 g/dL (3.2-4.8); Alkaline Phosphatase 109 U/L (46-116); Anion Gap 11 (5-15); BUN/Creatinine Ratio 31.1 (10.0-20.0); Bilirubin, Total 0.4 mg/dL (0.2-1.0); Blood Urea Nitrogen 23 mg/dL (9-23); Calcium 10.1 mg/dL (8.7-10.4); Carbon Dioxide 29 mmol/L (20-31); Chloride 103 mmol/L (98-107); Sodium 143 mmol/L (136-145); Total Protein 7.4 g/dL (5.7-8.2)
[2025-03-02 16:48] LABS: Alanine Aminotransferase 95 U/L (7-40); Glucose 183 mg/dL (74-106); Potassium 3.3 mmol/L (3.5-5.1)
[2025-03-02 19:41] LABS: Nucleated Red Blood Cells % 0.0 %; Total Cells Counted 100.0 (100)
[2025-03-02 19:42] LABS: Anisocytosis Slight
[2025-03-03 11:07] LABS: Anti-Nuclear Antibody Direct Positive (Negative)
== END | disposition home or self-care (01) ==
LOC: LAB 16:00
PROVIDERS: ATTEND Internal Medicine
DX: I10 Essential (primary) hypertension (principal); E11.69 Type 2 diabetes mellitus with other specified complication; D72.829 Elevated white blood cell count, unspecified; E66.9 Obesity, unspecified
CPT/HCPCS: 36415; 80053; 83615; 85025; 85652; 86038; 86141; 86431

== ENCOUNTER 2025-03-20 12:40 | Outpatient (CLI) | payer MEDICAID ==
[2025-03-20 13:31] LABS: Hematocrit 38.7 % (36.0-46.0); Hemoglobin 12.5 g/dL (12.2-16.2); Mean Corpuscular Hemoglobin 26.0 pg (28.0-32.0); Mean Corpuscular Volume 80.1 fL (80.0-100.0); Nucleated Red Blood Cells % 0.0 %
[2025-03-20 14:01] LABS: Albumin 4.3 g/dL (3.2-4.8); Alkaline Phosphatase 89 U/L (46-116); Anion Gap 10 (5-15); BUN/Creatinine Ratio 37.5 (10.0-20.0); Bilirubin, Total 0.3 mg/dL (0.2-1.0); Blood Urea Nitrogen 21 mg/dL (9-23); Calcium 10.0 mg/dL (8.7-10.4); Carbon Dioxide 29 mmol/L (20-31); Chloride 105 mmol/L (98-107); Glucose 103 mg/dL (74-106); Sodium 144 mmol/L (136-145); Total Protein 7.4 g/dL (5.7-8.2)
[2025-03-20 14:02] LABS: Alanine Aminotransferase 88 U/L (7-40); Potassium 3.5 mmol/L (3.5-5.1)
[2025-03-20 14:07] LABS: Iron 38.0 ug/dL (50-170)
[2025-03-20 14:10] LABS: Total Iron Binding Capacity 399.0 ug/dL (250-425)
== END 2025-03-20 17:00 | disposition home or self-care (01) ==
LOC: LAB 12:40
PROVIDERS: ATTEND Internal Medicine
DX: I10 Essential (primary) hypertension (principal); E11.69 Type 2 diabetes mellitus with other specified complication; E66.9 Obesity, unspecified; D72.829 Elevated white blood cell count, unspecified
CPT/HCPCS: 36415; 80053; 82728; 83540; 83550; 85025

== ENCOUNTER 2025-05-01 10:13 | Outpatient (CLI) | payer MEDICAID ==
[2025-05-01 10:46] LABS: Hematocrit 38.7 % (36.0-46.0); Hemoglobin 12.6 g/dL (12.2-16.2); Mean Corpuscular Hemoglobin 26.2 pg (28.0-32.0); Mean Corpuscular Volume 80.5 fL (80.0-100.0); Nucleated Red Blood Cells % 0.1 %
== END 2025-05-01 17:00 | disposition home or self-care (01) ==
LOC: LAB 10:13
PROVIDERS: ATTEND Physician Assistant Medical
DX: I10 Essential (primary) hypertension (principal); E11.69 Type 2 diabetes mellitus with other specified complication; E66.9 Obesity, unspecified; D72.829 Elevated white blood cell count, unspecified
CPT/HCPCS: 36415; 85025

== ENCOUNTER 2025-05-16 13:28 | Outpatient (CLI) | payer MEDICAID | END 2025-05-16 17:00 | disposition home or self-care (01) | LOC: LAB 13:28 | PROVIDERS: ATTEND Internal Medicine | DX: I10 Essential (primary) hypertension (principal); E11.69 Type 2 diabetes mellitus with other specified complication; E66.9 Obesity, unspecified; D72.829 Elevated white blood cell count, unspecified | CPT/HCPCS: 82270 ==

== ENCOUNTER 2025-06-12 14:35 | Inpatient (IN) | payer MEDICAID, OTHER ==
[~2025-06-12] VITALS: Ht 167.6 cm; Wt 126.8 kg
--- NOTE | 2025-06-12 15:14 | ED.PDOC ---
GI ASSESSMENT HPI Comments 65 year old female with PMHx CHF, HTN, HLD, DM presents to the ED with a chief complaint of abdominal pain onset 4 days. Patient states she began experiencing diffused abdominal pain, and dark black stool, some nausea, intermittent vomiting. Denies any blood in the vomit. Not having any abram blood in the stool. Not currently taking iron supplementation and has not recently taken Pepto-Bismol. She experienced similar symptoms about 1 year ago, was seen by PCP, colonoscopy was done, was told she had a cyst. She currently takes Tylenol, [place] for pain. Denies taken excessive Ibuprofen or NSAIDs. Denies fever, chills, dysuria, hematuria, dizziness, headache, diarrhea. No other symptoms or modifying factors present at this time. Chief Complaint: Abdominal Pain Time Seen by MD: 15:05 Primary Care Provider: JERRICA Hill Notes: Medications, Allergies Allergies: Coded Allergies: NO KNOWN ALLERGIES (Unverified , 09/01/24) Home Meds Reported Medications Baclofen (Baclofen) 20 Mg Tab, 20 MG PO TID, TAB 01/13/25 Cyclobenzaprine Hcl (Cyclobenzaprine Hcl) 5 Mg Tab, 5 MG PO TID, TAB 01/13/25 Tirzepatide (Mounjaro) 10 Mg/0.5 Ml Inj, 10 MG SC QWEEKLY, INJ 01/13/25 Cholecalciferol (D2000 Ultra Strength) 2,000 Unit Cap, 2000 UNIT PO DAILY, CAP 01/13/25 Ascorbic Acid (VITAMIN C TABLET) 500 Mg Tb, 500 MG GT DAILY, TAB 01/13/25 Alpha Tocopheryl Acid Succinat (VITAMIN E) 100 Unit Tab, 100 UNIT PO DAILY, TAB 01/13/25 Fish Oil (Fish Oil) 1,000 Mg Cap, 1000 MG PO DAILY, CAP 01/13/25 Hydrocodone-Acetaminophen (Hydrocodone Bitartrate/AC 5-325 mg) 1 Tab Tab, 1 TAB PO PRN, TAB 01/13/25 Acetaminophen (Acetaminophen ER 8 Hour A) 650 Mg Tab, 650 MG PO PRN, TAB 03/22/24 Potassium Chloride (Klor-Con M20) 20 Meq Tab, 20 MEQ PO DAILY, TAB 11/10/23 Information Source: Patient Mode of Arrival: Ambulatory Timing: Days Duration: Since onset Prehospital treatment: Pain Meds (Tylenol, [place]) Quality: Sharp Stool: Blood Streaked Severity: Moderate Recent: None Recent Hx of: None Pain Location: Diffuse Modifying Factors: Nothing Associated sign and symptoms: Nausea, Vomiting, Melena, Abdominal Pain, Blood in Stool Past Medical History PAST MEDICAL HISTORY: Arthritis, CHF, DM, High Lipids, HTN Surgical History: Cholecystectomy, HOT PACKER History: No Pertinent HOT PACKER History Family History Family History: Family hx of DM Social History Smoker: Non-Smoker Alcohol: Denies ETOH Use Drugs: Denies Drug Use Lives In: Home Constitutional: denies: chills, diaphoresis, fatigue, fever, malaise, sweats, weakness, others EENTM: denies: blurred vision, double vision, ear bleeding, ear discharge, ear drainage, ear pain, ear ringing, eye pain, eye redness, hearing loss, mouth jonnie n, mouth swelling, nasal discharge, nose bleeding, nose congestion, nose pain, photophobia, tearing, throat pain, throat swelling, voice changes, others Respiratory: denies: cough, hemoptysis, orthopnea, SOB at rest, shortness of breath, SOB with excertion, stridor, wheezing, others Cardiovascular: denies: chest pain, dizzy spells, diaphoresis, Dyspnea on exertion, edema, irregular heart beat, left arm pain, lightheadedness, palpitations, PND, syncope, others Gastrointestinal: reports: abdominal pain, melena, nausea, rectal bleeding, vomiting; denies: abdomen distended, blood streaked bowels, constipated, diarrhea, dysphagia, difficulty swallowing, hematemesis, poor appetite, poor fluid intake, rectal pain, others Genitourinary: denies: abnormal vagina bleeding, burning, dyspareunia, dysuria, flank pain, frequency, hematuria, incontinence, pain, , vagina discharge, urgency, others Neurological: denies: dizziness, fainting, headache, left sided numbness, left sided weakness, numbness, paresthesia, pre-existing deficit, right sided numbness, right sided weakness, seizure, speech problems, tingling, tremors, weakness, others Musculoskeletal: denies: back pain, gout, joint pain, joint swelling, muscle pain, muscle stiffness, neck pain, others Integumetry: denies: bruises, change in color, change in hair/nails, dryness, laceration, lesions, lumps, rash, wounds, others Allergic/Immunocompromised: denies: Difficulty Healing, Frequent Infections, Hives, Itching, others Hematologic/Lymphatic: denies: anemia, blood clots, easy bleeding, easy bruising, swollen glands, others Endocrine: denies: excessive hunger, excessive sweating, excessive thirst, excessive urination, flushing, intolerance to cold, intolerance to heat, unexplained weight gain, unexplained weight loss, others Psychiatric: denies: anxiety, bipolar disorder, depression, hopeless, panic disorder, schizophrenia, sleepless, suicidal, others All Other Systems: Reviewed and Negative Physical Exam General Appearance: Normal HEENT: Normal ENT Inspection, Pharynx Normal, TMs Normal Neck: Full Range of Motion, Non-Tender, Normal, Normal Inspection Respiratory: Chest Non-Tender, Lungs Clear, No Accessory Muscle Use, No Respiratory Distress, Normal Breath Sounds Cardiovascular: No Edema, No JVD, No Murmur, No Gallop, Normal Peripheral Pulses, Regular Rate/Rhythm Breast Exam: Deferred Gastrointestinal: No Organomegaly, Non Tender, No Pulsatile Mass, Normal Bowel Sounds, Soft Genitalia: Deferred Pelvic: Deferred Rectal: Deferred Extremities: No calf tenderness, Normal capillary refill, Normal inspection, Normal range of motion, Non-tender, No pedal edema Musculoskeletal : Apperance: Normal Neurologic: Alert, optical design engineer II-XII nml as Tested, No Motor Deficits, Normal Affect, Normal Mood, No Sensory Deficits Cerebellar Function: Normal Reflexes: Normal Skin: Dry, Normal Color, Warm Lymphatic: No Adenopathy Was a procedure done? Was a procedure done?: No GI differential Dx Differential Diagnosis: Gastritis/PUD, Gastroenteritis, GI hemorrhage X-Ray, Labs, Meds, VS Vital Signs Date Time Temp Pulse Resp B/P (MAP) Pulse Ox O2 Delivery O2 Flow Rate FiO2 06/12/25 18:33 98.3 99 20 149/75 (99) 95 98.3 06/12/25 16:54 98.7 06/12/25 14:36 97.8 109 15 131/74 95 97.8 Lab Test 06/12/25 15:21 Range/Units White Blood Count 12.1 H 4.4-10.8 10^3/uL Red Blood Count 5.23 H 4.0-5.20 10^6/uL Hemoglobin 13.9 12.2-16.2 g/dL Hematocrit 42.8 36.0-46.0 % Mean Corpuscular Volume 81.8 80.0-100.0 fL Mean Corpuscular Hemoglobin 26.7 L 28.0-32.0 pg Mean Corpuscular Hemoglobin Concent 32.6 32.0-36.0 g/dL Red Cell Distribution Width 20.3 H 11.8-14.3 % Platelet Count 309 140-450 10^3/uL Mean Platelet Volume 7.7 6.9-10.8 fL Neutrophils (%) (Auto) 58.5 37.0-80.0 % Lymphocytes (%) (Auto) 28.3 10.0-50.0 % Monocytes (%) (Auto) 9.6 0.0-12.0 % Eosinophils (%) (Auto) 2.6 0.0-7.0 % Basophils (%) (Auto) 1.0 0.0-2.0 % Neutrophils # (Auto) 7.1 1.6-8.6 10 ^3/uL Lymphocytes # (Auto) 3.4 0.4-5.4 10 ^3/uL Monocytes # (Auto) 1.2 0-1.3 10 ^3/uL Eosinophils # (Auto) 0.3 0-0.8 10 ^3/uL Basophils # (Auto) 0.1 0-0.2 10 ^3/uL Nucleated Red Blood Cells 0.1 % Sodium Level 142 136-145 mmol/L Potassium Level 3.6 3.5-5.1 mmol/L Chloride Level 105 98-107 mmol/L Carbon Dioxide Level 26 20-31 mmol/L Anion Gap 11 5-15 Blood Urea Nitrogen 13 9-23 mg/dL Creatinine 0.57 0.550-1.02 mg/dL Glomerular Filtration Rate Calc 101 >90 mL/min BUN/Creatinine Ratio 22.8 H 10.0-20.0 Serum Glucose 135 H 74-106 mg/dL Hemoglobin A1c Pending Calcium Level 9.6 8.7-10.4 mg/dL Lipase 30 12-53 U/L Current Medications Medications (Trade) Dose Ordered Sig/Luis M Route Start Time Stop Time Status Last Admin Pantoprazole Sodium (Protonix) 40 mg ONCE ONCE IV 06/12/25 15:45 06/12/25 15:46 DC 06/12/25 16:58 Al Hydrox/Mg Hydrox/Simethicone (Maalox Plus) 30 ml ONCE ONCE PO 06/12/25 15:45 06/12/25 15:46 DC 06/12/25 16:53 Acetaminophen (Tylenol Tablet) 1,000 mg ONCE ONCE PO 06/12/25 15:45 06/12/25 15:46 DC 06/12/25 16:54 Dicyclomine HCl (Bentyl Capsule) 20 mg ONCE ONCE PO 06/12/25 15:45 06/12/25 15:46 DC 06/12/25 16:53 [place] [id number] Ph: [phone] DIAGNOSTIC IMAGING Diagnostic Imaging Report : [id number] Signed PATIENT: FRACISCO RETANA ACCT: [id number] UNIT: [id number] : 1960 LOC: ER ROOM / BED: / AGE / SEX: 65 / F ADM STATUS: REG ER SERVICE [id number] ORDERING PHYSICIAN: SHELLY BUI MD PROCEDURE(s): ABPLIV - CT AB PEL WITH IV CON ONLY REASON: lower abdominal pain x 4 days ORDER NUMBER(s): [id number], ACCESSION NUMBER(s): [id number] CLINICAL HISTORY: lower abdominal pain x 4 days TECHNIQUE: CT of the abdomen and pelvis was performed with IV contrast. This exam was performed according to our departmental dose optimization program. Up-to-date CT equipment and radiation dose reduction techniques are utilized as appropriate. CTDI 27 DLP 1564 COMPARISON: US ABDOMEN LIMITED on DOS: 03/14/25, US PELVIC on DOS: 10/07/24, CT CT AB PEL WO CON-NO ORAL OR IV on DOS: 03/15/24, CT CT AB PEL WO CON-NO ORAL OR IV on DOS: 11/09/23, CT ANGIO AORTIC ABDOMINAL on DOS: 06/25/23 FINDINGS: Abdomen/Pelvis: The spleen, adrenal glands, kidneys, and bladder are unremarkable. The gallbladder is absent. There is diffuse hepatic steatosis. There is a calcified uterine fibroid. The endometrial stripe appears thickened. The abdominal aorta is normal in course and caliber. There are czqx-yp-ydecphmg aortic atherosclerotic calcifications. There is no free intraperitoneal air or fluid. There is no enlarged abdominal or pelvic lymph node. There is lxur-so-ivtstrxi wall thickening involving the proximal duodenum with inflammation. There is no large bowel wall thickening or dilatation. There is diastasis rectus with a small fat containing umbilical hernia. Other: The imaged lower thorax demonstrate breathing changes and atelectasis. No acute osseous abnormality is evident. IMPRESSION: Fwvh-jy-eujxjkvo proximal duodenal wall thickening with inflammation, favor peptic ulcer disease. Given proximity to the pancreatic head, recommend correlation with amylase / lipase levels to exclude pancreatitis. Suspected endometrial thickening. Ultrasound correlation recommended. If stripe thickening is confirmed sonographically, tissue sampling is suggested. Diffuse hepatic steatosis. Uterine fibroids. Cholecystectomy. ATED BY: RENÉ KUMAR MD DICTATED DATE/TIME: 06/12/251711 SIGNED BY: RENÉ KUMAR MD SIGNED DATE/TIME: 06/12/251711 CC: Time of 1ST Reevaluation: 15:35 Reevaluation 1ST: Unchanged Patient Education/Counseling: Diagnosis, Treatment, Prognosis Family Education/Counseling: No Family Present SEPSIS Sepsis Screen Date sepsis recognized/suspect: Jun 12, 2025 Time Sepsis recognized/suspect: 1439 Recent Procedure: No On Antibiotic Therapy: No Respiratory Rate >20: No Heart Rate >90: Yes Temp<36 C (96.8 F) or >38.3 C: No SBP <90 or MAP <65 mmHG: No New Acute Mental Status Change: No Is the patient on CPAP, BIPAP,: No Physician Orders Ct Ab Pel With Iv Con Only (06/12/25 15:08) Urinalysis (06/12/25 15:08) Vital Signs Date Time Temp Pulse Resp B/P (MAP) Pulse Ox O2 Delivery O2 Flow Rate FiO2 06/12/25 18:33 98.3 99 20 149/75 (99) 95 98.3 06/12/25 16:54 98.7 06/12/25 14:36 97.8 109 15 131/74 95 97.8 Laboratory Tests Test 06/12/25 15:21 White Blood Count 12.1 10^3/uL (4.4-10.8) H Medications Medications Dose Ordered Sig/Luis M Route Start Time Stop Time Status Last Admin Dose Admin Acetaminophen 1,000 mg ONCE ONCE PO 06/12/25 15:45 06/12/25 15:46 DC 06/12/25 16:54 Al Hydrox/Mg Hydrox/Simethicone 30 ml ONCE ONCE PO 06/12/25 15:45 06/12/25 15:46 DC 06/12/25 16:53 Dicyclomine HCl 20 mg ONCE ONCE PO 06/12/25 15:45 06/12/25 15:46 DC 06/12/25 16:53 Pantoprazole Sodium 40 mg ONCE ONCE IV 06/12/25 15:45 06/12/25 15:46 DC 06/12/25 16:58 Departure 1 Departure Time of Disposition: 18:38 (65 year old female with PMHx CHF, HTN, HLD, DM presenting for evaluation of abdominal pain and dark stool over the past 4 days. Given the reports of abdominal pain with dark stool seems consistent with possible upper GI bleed. Consider possible peptic ulcer disease. Patient has had prior abdominal surgeries, reporting lower abdominal pain and intermittent nausea and vomiting, consider possible SBO. CBC was performed with no evidence of critical leukocytosis or significant anemia. Given the lower abdominal pain consider possible pancreatitis, however, lipase within normal limits. CT of the abdomen and pelvis was performed which shows that the patient has moderate proximal duodenal wall thickening with inflammation which favors peptic ulcer disease. Patient was treated for discomfort with oral Tylenol, IV Protonix, oral Maalox and oral Bentyl. Will be admitted for further workup of likely upper GI bleed/peptic ulcer disease.) Impression: Primary Impression: Upper GI bleed Additional Impression: Peptic ulcer disease Disposition: ADMITTED INPATIENT Admit to: Med Surg Condition: Stable Critical Care Note Critical Care Time?: No Stability Stability form required: No Heart Score Heart Score: Heart Score Response (Comments) Value History N/A 0 EKG N/A 0 Age N/A 0 Risk Factors N/A 0 Troponin N/A 0 Total 0 I personally scribed for ER ([email or web address]) on 06/12/25 at 15:14. Electronically submitted by Mary Bonilla ([email or web address]). I personally scribed for ER ([email or web address]) on 06/12/25 at 17:37. Electronically submitted by Mary Bonilla ([email or web address]). ER Jun 12, 2025 15:14 SHELLY BUI MD Jun 12, 2025 18:50
[2025-06-12 15:35] LABS: Hematocrit 42.8 % (36.0-46.0); Hemoglobin 13.9 g/dL (12.2-16.2); Mean Corpuscular Hemoglobin 26.7 pg (28.0-32.0); Mean Corpuscular Volume 81.8 fL (80.0-100.0); Nucleated Red Blood Cells % 0.1 %
[2025-06-12 15:38] LABS: Chloride 105 mmol/L (98-107); Potassium 3.6 mmol/L (3.5-5.1); Sodium 142 mmol/L (136-145)
[2025-06-12 15:39] LABS: Anion Gap 11 (5-15); Carbon Dioxide 26 mmol/L (20-31)
[2025-06-12 15:40] LABS: Calcium 9.6 mg/dL (8.7-10.4)
[2025-06-12 15:45] LABS: BUN/Creatinine Ratio 22.8 (10.0-20.0); Blood Urea Nitrogen 13 mg/dL (9-23); Glucose 135 mg/dL (74-106); Lipase 30 U/L (12-53)
[2025-06-12] MEDS: DICYCLOMINE HCL 10 MG CAP PO ONE (16:53)
[2025-06-12] MEDS: MAALOX PLUS or MAALOX 30 ML PO ONE (16:53)
[2025-06-12] MEDS: ACETAMINOPHEN 325 MG TAB PO ONE (16:54)
[2025-06-12] MEDS: IOHEXOL 300 MG/ML 100ML BOTTLE IJ ONE (16:56)
[2025-06-12] MEDS: PANTOPRAZOLE 40 MG/10 ML VIAL INJ IV ONE ×2 (16:58→21:36)
--- NOTE | 2025-06-12 17:14 | DVH ---
CLINICAL HISTORY: lower abdominal pain x 4 days TECHNIQUE: CT of the abdomen and pelvis was performed with IV contrast. This exam was performed accor ding to our departmental dose optimization program. Up-to-date CT equipment and radiation dose reduct ion techniques are utilized as appropriate. CTDI 27 DLP 1564 COMPARISON: US ABDOMEN LIMITED on DOS: 03/14/25, US PELVIC on DOS: 10/07/24, CT CT AB PEL WO CON-NO ORA L OR IV on DOS: 03/15/24, CT CT AB PEL WO CON-NO ORAL OR IV on DOS: 11/09/23, CT ANGIO AORTIC ABDOMINAL on DOS: 06/25/23 FINDINGS: Abdomen/Pelvis: The spleen, adrenal glands, kidneys, and bladder are unremarkable. The gallbladder is absent. There is diffuse hepatic steatosis. There is a calcified uterine fibroid. The endometrial stripe appears thickened. The abdominal aorta is normal in course and caliber. There are walh-xo-gfmpvvdd aortic atheroscleroti c calcifications. There is no free intraperitoneal air or fluid. There is no enlarged abdominal or pelvic lymph node. There is yvcj-bt-cddjzcdi wall thickening involving the proximal duodenum with inflammation. There is no large bowel wall thickening or dilatation. There is diastasis rectus with a small fat con taining umbilical hernia. Other: The imaged lower thorax demonstrate breathing changes and atelectasis. No acute osseous abnormality is evident. IMPRESSION: Qchp-po-upyrxrfe proximal duodenal wall thickening with inflammation, favor peptic ulcer disease. Gi luci proximity to the pancreatic head, recommend correlation with amylase / lipase levels to exclude p ancreatitis. Suspected endometrial thickening. Ultrasound correlation recommended. If stripe thickening is confir med sonographically, tissue sampling is suggested. Diffuse hepatic steatosis. Uterine fibroids. Cholecystectomy.
[2025-06-12] MEDS ORDERED: POLYETHYLENE GLYCOL 17 GM PWDR PO PRN (19:45)
[2025-06-12] MEDS: DOCUSATE SOD 100 MG CAP PO ONE (19:45)
[2025-06-12] MEDS: SUCRALFATE 1 GM TAB PO ONE (19:45)
--- NOTE | 2025-06-12 19:59 | DVHHPRES ---
History of Present Illness Resident Creating Document: PATITO ROMERO RESIDENT History of Present Illness History of Present Illness (HPI): Araceli Reddy is a 65-year-old female with past medical history of osteoarthritis, type 2 diabetes mellitus, essential hypertension, dyslipidemia, obesity presented to the ED with complaints of abdominal pain since 4 days. Patient rates the pain 9 on 10 in severity, increasing on eating, decreasing on fasting with no radiation, on and off and sharp in quality. She also complains of bilateral knee pain which has been chronic because of osteoarthritis. She used to take mounjaro but stopped recently because of abdominal pain. Past Medical History (PMH): osteoarthritis, type 2 diabetes mellitus, essential hypertension, dyslipidemia, obesity Past Surgical History (PSH): Umbilical hernia surgery 3 years back Family history (FH): History of diabetes mellitus in father EtOH: The patient denies alcohol use Smoking /Vaping: Patient denies smoking Recreational Drugs: Patient denies recreational drug use Residence: Lives with family Home Medications: Lasix, baclofen, cyclobenzaprine, [place] Allergies: None Review of Systems Review of Systems General: patient denies fever, fatigue, weaknes, sweating, any recent changes in appetite and weight HEENT: No headaches, visiual changes, hearing loss, tinnitus, nasal congestion and discharge, and sore throat. Cardiovascular: Denies chest pain, palpitations, dyspnea on exertion, orthopnea, or claudication. Respiratory: No cough, and wheezing. Gastrointestinal: Complains of abdominal pain Genitourinary: No dysuria, hematuria, discharge, frequency, urgency, nocturia, incontinence, and urinary retention. Endocrine: No heat or cold intolerance, polydipsia, polyuria, and polyphagia. Neurological: No dizziness, extremity weakness and numbness, tremors, gait disturbance, seizures, and memory impairment. Psychiatric: Denies depression, anxiety,or insomnia. Musculoskeletal: Complains of bilateral leg swelling. Skin: No rashes, itching, skin lesion, changes in hair, nail, skin texture and breast. Hematologic/Lymphatic: Denies easy bruising, bleeding tendencies, or lymph node enlargement. Allergies: Coded Allergies: NO KNOWN ALLERGIES (Unverified , 09/01/24) Exam Vital Signs Vital Signs Date Time Temp Pulse Resp B/P (MAP) Pulse Ox O2 Delivery O2 Flow Rate FiO2 06/12/25 18:33 98.3 99 20 149/75 (99) 95 98.3 Exam General Appearance: Alert, Oriented X3, Cooperative, No acute distress HEENT: Atraumatic, PERRLA, EOMI, Mucous membrane moist/pink Respiratory: Clear to auscultation, Normal air movement Cardiovascular: Regular rate, Normal S1, Normal S2, No murmurs, no chest wall tenderness Abdominal: Diffuse abdominal tenderness present, Normal bowel sounds, Soft, No hepatospenomegaly, No masses Extremities: No clubbing, No cyanosis, Normal pulses, bilateral nonpitting pedal edema Skin: No rashes, No breakdown, No significant lesion Neuro: Normal gait, Normal speech, Strength at 5/5 X4 ext, Normal tone, S ensation intact, Cranial nerves 3-12 NL, Reflexes 2+ Psych/Mental Status: Mental status NL, Mood NL Labs/Xrays Labs Test 06/12/25 15:21 Range/Units White Blood Count 12.1 H 4.4-10.8 10^3/uL Red Blood Count 5.23 H 4.0-5.20 10^6/uL Hemoglobin 13.9 12.2-16.2 g/dL Hematocrit 42.8 36.0-46.0 % Mean Corpuscular Volume 81.8 80.0-100.0 fL Mean Corpuscular Hemoglobin 26.7 L 28.0-32.0 pg Mean Corpuscular Hemoglobin Concent 32.6 32.0-36.0 g/dL Red Cell Distribution Width 20.3 H 11.8-14.3 % Platelet Count 309 140-450 10^3/uL Mean Platelet Volume 7.7 6.9-10.8 fL Neutrophils (%) (Auto) 58.5 37.0-80.0 % Lymphocytes (%) (Auto) 28.3 10.0-50.0 % Monocytes (%) (Auto) 9.6 0.0-12.0 % Eosinophils (%) (Auto) 2.6 0.0-7.0 % Basophils (%) (Auto) 1.0 0.0-2.0 % Neutrophils # (Auto) 7.1 1.6-8.6 10 ^3/uL Lymphocytes # (Auto) 3.4 0.4-5.4 10 ^3/uL Monocytes # (Auto) 1.2 0-1.3 10 ^3/uL Eosinophils # (Auto) 0.3 0-0.8 10 ^3/uL Basophils # (Auto) 0.1 0-0.2 10 ^3/uL Nucleated Red Blood Cells 0.1 % Sodium Level 142 136-145 mmol/L Potassium Level 3.6 3.5-5.1 mmol/L Chloride Level 105 98-107 mmol/L Carbon Dioxide Level 26 20-31 mmol/L Anion Gap 11 5-15 Blood Urea Nitrogen 13 9-23 mg/dL Creatinine 0.57 0.550-1.02 mg/dL Glomerular Filtration Rate Calc 101 >90 mL/min BUN/Creatinine Ratio 22.8 H 10.0-20.0 Serum Glucose 135 H 74-106 mg/dL Calcium Level 9.6 8.7-10.4 mg/dL Lipase 30 12-53 U/L SEPSIS Sepsis Screen Date sepsis recognized/suspect: Jun 12, 2025 Time Sepsis recognized/suspect: 1438 Recent Procedure: No On Antibiotic Therapy: No Respiratory Rate >20: No Heart Rate >90: Yes Temp<36 C (96.8 F) or >38.3 C: No SBP <90 or MAP <65 mmHG: No New Acute Mental Status Change: No Is the patient on CPAP, BIPAP,: No Physician Orders Ct Ab Pel With Iv Con Only (06/12/25 15:08) Urinalysis (06/12/25 15:08) Admit (06/12/25 19:33) Allergies (06/12/25 19:33) Code Status (06/12/25 19:33) Complete Blood Count (06/13/25 04:00) Comprehensive Metabolic Panel (06/13/25 04:00) Cardiac Diet-2gna,Lofat,Lochol (06/13/25 Breakfast) Condition: Fair (06/12/25 19:33) Stat Ekg For Chest Pain (06/12/25 19:33) Rhythm Strips Once Every Shift (06/12/25 19:33) Vital Signs Date Time Temp Pulse Resp B/P (MAP) Pulse Ox O2 Delivery O2 Flow Rate FiO2 06/12/25 18:33 98.3 99 20 149/75 (99) 95 98.3 06/12/25 16:54 98.7 06/12/25 14:36 97.8 109 15 131/74 95 97.8 Laboratory Tests Test 06/12/25 15:21 White Blood Count 12.1 10^3/uL (4.4-10.8) H Medications Medications Dose Ordered Sig/Luis M Route Start Time Stop Time Status Last Admin Dose Admin Acetaminophen 1,000 mg ONCE ONCE PO 06/12/25 15:45 06/12/25 15:46 DC 06/12/25 16:54 1,000 MG Al Hydrox/Mg Hydrox/Simethicone 30 ml ONCE ONCE PO 06/12/25 15:45 06/12/25 15:46 DC 06/12/25 16:53 30 ML Dicyclomine HCl 20 mg ONCE ONCE PO 06/12/25 15:45 06/12/25 15:46 DC 06/12/25 16:53 20 MG Pantoprazole Sodium 40 mg ONCE ONCE IV 06/12/25 15:45 06/12/25 15:46 DC 06/12/25 16:58 40 MG Assessment/Plan Assessment/Plan Assessment and plan Intractable abdominal pain Peptic ulcer disease Protonix 40 mg Stool occult blood To rule out pancreatitis Follow lipase levels Follow amylase levels ? Sepsis, SIRS criteria met IV fluids Follow lactate levels ? Congestive heart failure Follow BNP levels Echo DVT ultrasound GI bleed can not be ruled out Follow stool occult blood Endometrial thickening, to rule out endometrial carcinoma Follow pelvic ultrasound. Needs outpatient [employer] appt for Pap Smear and further workup Grade 3 obesity Counseled on weight loss Type 2 diabetes mellitus Continue home medications Essential hypertension Continue home medications Dyslipidemia Follow lipid levels PUD prophylaxis: protonix 40mg DVT prophylaxis: brisk movement. Barriers to discharge: Medical diagnosis and management in progress. Patient lives with family. Independent for ADL. Case discussed with Dr. Abraham. Code Status: Full Code. Complex patient care discussion needed. Spend total 33 minutes for bedside assessment, case discussion and management. Plan discussed with: Patient My Orders Orders - PATITO ROMERO RESIDENT Procedure Category Date Status Time Admit ADMIT 06/12/25 Transmitted 19:33 Allergies SHANNON 06/12/25 In Process 19:33 Code Status CODE 06/12/25 Transmitted 19:33 Complete Blood Count LAB 06/13/25 Verified 04:00 Comprehensive LAB 06/13/25 Verified Metabolic Panel 04:00 Cardiac DIET 06/13/25 Transmitted Diet-2gna,Lofat,Lochol Breakfast Condition: Fair SHANNON 10/20/25 In Process 19:33 Stat Ekg For Chest SHANNON 06/12/25 In Process Pain 19:33 Rhythm Strips Once SHANNON 06/12/25 In Process Every Shift 19:33 Date of Service: Jun 12, 2025 Billing Provider: PAULA ABRAHAM MD Common Visit Codes: 96382-HCKKVYP INP/OBS CARE (HIGH) Secondary Visit Codes: 47740-WPCJRLUK CARE PLAN 30 MINUTES PATITO ROMERO RESIDENT Jun 12, 2025 19:59 PAULA ABRAHAM MD Jun 13, 2025 11:50
[2025-06-12] MEDS: SODIUM CHLORIDE 0.9% 1,000 ML IV ONE (20:00)
[2025-06-12 20:18] LABS: Albumin 3.9 g/dL (3.2-4.8); Alkaline Phosphatase 97 U/L (46-116); Amylase 36 U/L (30-118); Anion Gap 11 (5-15); BUN/Creatinine Ratio 25.0 (10.0-20.0); Blood Urea Nitrogen 15 mg/dL (9-23); Calcium 9.5 mg/dL (8.7-10.4); Carbon Dioxide 28 mmol/L (20-31); Chloride 103 mmol/L (98-107); Potassium 3.8 mmol/L (3.5-5.1); Sodium 142 mmol/L (136-145); Total Protein 7.4 g/dL (5.7-8.2)
[2025-06-12 20:19] LABS: Bilirubin, Total 0.5 mg/dL (0.2-1.0)
--- NOTE | 2025-06-12 20:58 | DVH ---
INDICATION: Evaluate endometrial thickening TECHNIQUE: Multiple real-time grayscale transabdominal and transvaginal sonographic images along with color and duplex Doppler of the uterus and ovaries were obtained. COMPARISON: US PELVIC on DOS: 10/07/24 FINDINGS: The uterus measures 7.12 x 4.94 x 3.24 cm. The endometrial stripe measures 18.2 mm thickene d. Multiple cystic structures in the endometrial canal. Nabothian cyst in the lower uterine segment. 0.83 x 0.72 by 0.88 cm anechoic lesion in the lower uterine segment The right ovary not visualized The left ovary not visualized Subsequent color and duplex Doppler interrogation of the ovaries demonstrated symmetric vascular flow to both ovaries, though this does not exclude the possibility of torsion due to the dual blood suppl y. IMPRESSION: 1. Endometrium measures 18.2 mm is thickened. 2. Multiple cystic areas in the in the endometrial canal. 3. Nabothian cyst in the lower uterine segment. 4. Ovaries not visualized
--- NOTE | 2025-06-12 21:05 | DVH ---
Bilateral lower extremity venous duplex Clinical History: swelling Comparison: US BILAT LOWER DVT on DOS: 06/30/24, LT LOWER DVT on DOS: 02/09/22, BLDVT on DOS: 12/17/21 Technique: Duplex Doppler evaluation of the deep venous systems of both lower extremities from the common femora l veins to the popliteal veins including color Doppler and spectral/pulsed waveform analysis was perf ormed. Findings: RIGHT SIDE: The common femoral vein demonstrates appropriate compressibility and waveform variability. There is compressibility/patency of the great saphenous vein at the proximal thigh. The femoral vein demonstrates appropriate compressibility and waveform variability. The deep femoral vein demonstrates appropriate compressibility and waveform variability. The popliteal vein demonstrates appropriate compressibility and waveform variability. There is normal compressibility at the tibioperoneal trunk. LEFT SIDE: The common femoral vein demonstrates appropriate compressibility and waveform variability. There is compressibility/patency of the great saphenous vein at the proximal thigh. The femoral vein demonstrates appropriate compressibility and waveform variability. The deep femoral vein demonstrates appropriate compressibility and waveform variability. The popliteal vein demonstrates appropriate compressibility and waveform variability. There is normal compressibility at the tibioperoneal trunk. 4.48 x 4.16 x 2.32 cm cystic structure in the left popliteal fossa consistent with a Cameron's cyst. Impression: 1. No right or left femoropopliteal venous thrombosis. 2. 4.48 x 4.16 x 2.32 cm cystic structure in the left popliteal fossa consistent with a Cameron's cyst .
[2025-06-12 21:09] LABS: Cholesterol 275 mg/dL (< 200); HDL Cholesterol 31 mg/dL (40-59); Triglycerides 293 mg/dL (< 150)
[2025-06-12 21:18] LABS: Alanine Aminotransferase 88 U/L (7-40); Glucose 162 mg/dL (74-106)
[2025-06-12 22:01] LABS: COVID19 ANTIGEN SOFIA FIA NEGATIVE (NEGATIVE)
[2025-06-13 02:21] VITALS: BP 127/51; PULSE 102; RESP 18; TEMP 97.4; O2SAT 93
[2025-06-13 04:58] VITALS: BP 146/71; PULSE 98; RESP 17; TEMP 97.8; O2SAT 91
[2025-06-13 05:42] LABS: Hematocrit 38.9 % (36.0-46.0); Hemoglobin 12.7 g/dL (12.2-16.2); Nucleated Red Blood Cells % 0.1 %
[2025-06-13 05:44] LABS: Mean Corpuscular Hemoglobin 26.9 pg (28.0-32.0); Mean Corpuscular Volume 82.4 fL (80.0-100.0)
[2025-06-13 05:48] LABS: Alkaline Phosphatase 85 U/L (46-116); Amylase 36 U/L (30-118); Anion Gap 12 (5-15); BUN/Creatinine Ratio 23.0 (10.0-20.0); Blood Urea Nitrogen 14 mg/dL (9-23); Calcium 9.0 mg/dL (8.7-10.4); Carbon Dioxide 27 mmol/L (20-31); Chloride 105 mmol/L (98-107); Lipase 28 U/L (12-53); Sodium 144 mmol/L (136-145); Total Protein 6.9 g/dL (5.7-8.2)
[2025-06-13 05:49] LABS: Albumin 3.7 g/dL (3.2-4.8); Bilirubin, Total 0.3 mg/dL (0.2-1.0)
[2025-06-13 05:52] LABS: Alanine Aminotransferase 69 U/L (7-40); Glucose 158 mg/dL (74-106); Potassium 3.1 mmol/L (3.5-5.1)
[2025-06-13] MEDS: ACETAMINOPHEN 325 MG TAB PO PRN (06:05)
[2025-06-13] MEDS: SUCRALFATE 1 GM TAB PO SCH (06:05)
[2025-06-13] MEDS ORDERED: CEPH500C PO (06:13)
[2025-06-13] MEDS ORDERED: FURO20TA3 PO (06:13)
[2025-06-13] MEDS ORDERED: MUPI2CRE17 EX (06:13)
[2025-06-13] MEDS ORDERED: FERR325T20 PO (06:13)
[2025-06-13] MEDS ORDERED: BACL10TA PO (06:13)
[2025-06-13] MEDS: POTASSIUM CHLORIDE 20 MEQ, LIDOCAINE 1% (LOCAL ANESTH.) 2 ML in SODIUM CHL 0.9% 100 ML IV ONE (08:00)
[2025-06-13] MEDS: PANTOPRAZOLE 40 MG/10 ML VIAL INJ IV SCH (08:38)
[2025-06-13 09:00] VITALS: BP 124/69; PULSE 98; RESP 18; TEMP 98.9; O2SAT 96
[2025-06-13] MEDS: DOCUSATE SOD 100 MG CAP PO SCH (10:00)
[2025-06-13] MEDS ORDERED: SUCR1TAB31 OR (11:53)
[2025-06-13] MEDS ORDERED: PANT40TA2 PO (11:53)
[2025-06-13 13:00] VITALS: BP 136/81; PULSE 96; RESP 19; TEMP 98.6; O2SAT 96
--- NOTE | 2025-06-13 14:03 | DVHINCON2 ---
GI Consult Consult Note GI consult note Date of Consultation: 06/13/2025 Chief Complaint: Peptic ulcer GI bleed can not be ruled out Referring Physician: Dr. Lund H&P: 65-year-old female admitted with complains of abdominal pain for the past four days, which is improving at this time. Patient also had nausea and vomiting, none at this time, denies hematemesis. Last bowel movement this morning denies melena or red blood in stool. Patient had noticed dark stool about 3-4 months ago but none at this time. Patient was being treated with Mounjaro and took about three doses of the medication before she quit two months ago due to abdominal pain at this time Status post EGD two years ago with Dr. Whitehead Past Medical History: osteoarthritis, type 2 diabetes mellitus, essential hypertension, dyslipidemia, obesity Past Surgical History: Umbilical hernia repair Social History: NO smoking, drinking ETOH and use of illegal drugs. Family History: Noncontributory Review of Systems: Constitutional: no fever, chill, weight loss HEENT: no eye pain, no hearing loss, no oral lesion, no scleral icterus Heart: no chest pain, no chest pressure Lung: no cough, no dyspnea with exertion Abdomen: see HPI Musculoskeletal: Leg pain Physical exam: General: NAD, AAOX3 Chest: lung huntley clear to auscultation Heart: RRR, no murmur Abdomen: Minimal upper abdominal tenderness to palpation, +BS Labs: Labs Test 06/13/25 04:40 06/12/25 21:00 06/12/25 19:50 06/12/25 15:21 Range/Units White Blood Count 10.3 4.4-10.8 10^3/uL Red Blood Count 4.72 4.0-5.20 10^6/uL Hemoglobin 12.7 12.2-16.2 g/dL Hematocrit 38.9 36.0-46.0 % Mean Corpuscular Volume 82.4 80.0-100.0 fL Mean Corpuscular Hemoglobin 26.9 L 28.0-32.0 pg Mean Corpuscular Hemoglobin Concent 32.6 32.0-36.0 g/dL Red Cell Distribution Width 19.7 H 11.8-14.3 % Platelet Count 274 140-450 10^3/uL Mean Platelet Volume 7.8 6.9-10.8 fL Neutrophils (%) (Auto) 57.9 37.0-80.0 % Lymphocytes (%) (Auto) 27.7 10.0-50.0 % Monocytes (%) (Auto) 10.6 0.0-12.0 % Eosinophils (%) (Auto) 3.3 0.0-7.0 % Basophils (%) (Auto) 0.5 0.0-2.0 % Neutrophils # (Auto) 6.0 1.6-8.6 10 ^3/uL Lymphocytes # (Auto) 2.9 0.4-5.4 10 ^3/uL Monocytes # (Auto) 1.1 0-1.3 10 ^3/uL Eosinophils # (Auto) 0.3 0-0.8 10 ^3/uL Basophils # (Auto) 0.1 0-0.2 10 ^3/uL Nucleated Red Blood Cells 0.1 % Sodium Level 144 136-145 mmol/L Potassium Level 3.1 L 3.5-5.1 mmol/L Chloride Level 105 98-107 mmol/L Carbon Dioxide Level 27 20-31 mmol/L Anion Gap 12 5-15 Blood Urea Nitrogen 14 9-23 mg/dL Creatinine 0.61 0.550-1.02 mg/dL Glomerular Filtration Rate Calc 99 >90 mL/min BUN/Creatinine Ratio 23.0 H 10.0-20.0 Serum Glucose 158 H 74-106 mg/dL Calcium Level 9.0 8.7-10.4 mg/dL Total Bilirubin 0.3 0.2-1.0 mg/dL Aspartate Amino Transferase (AST) 55 H 13-40 U/L Alanine Aminotransferase (ALT) 69 H 7-40 U/L Alkaline Phosphatase 85 46-116 U/L Total Protein 6.9 5.7-8.2 g/dL Albumin 3.7 3.2-4.8 g/dL Amylase Level 36 30-118 U/L Lipase 28 12-53 U/L Influenza Type A Antigen Negative Negative Influenza Type B Antigen Negative Negative SARS-CoV-2 Antigen (Rapid) Negative NEGATIVE Triglycerides Level 293 H < 150 mg/dL Cholesterol Level 275 H < 200 mg/dL LDL Cholesterol 209 H < 100 mg/dL HDL Cholesterol 31 L 40-59 mg/dL Thyroid Stimulating Hormone (TSH) 2.06 0.55-4.78 uIU/mL Hemoglobin A1c 7.4 H <5.7 % A1C B-Type Natriuretic Peptide 14.33 0-100 pg/mL Imaging: CT abdomen pelvis IMPRESSION: [id number] proximal duodenal wall thickening with inflammation, favor peptic ulcer disease. Given proximity to the pancreatic head, recommend correlation with amylase / lipase levels to exclude pancreatitis. Suspected endometrial thickening. Ultrasound correlation recommended. If stripe thickening is confirmed sonographically, tissue sampling is suggested. Diffuse hepatic steatosis. Uterine fibroids. Cholecystectomy. Assessment: Abdominal pain improving Abnormal CT findings possible PUD Recent Mounjaro use Plan: Discussed with Dr. Whitehead Possible plan for EGD discussed with patient, patient refusing procedure to be done today as her symptoms are improving patient agrees to follow-up in GI clinic on an outpatient basis for elective procedures as needed. Discussed risks and benefits extensively regarding the procedure Protonix and Carafate Outpatient GI follow-up Discussed plan with patient and RN Thank you for this consult Date of Service: Jun 13, 2025 Billing Provider: RAINA BURROUGHS Common Visit Codes: CONSULT ONLY Consultation Codes: [id number] CONSULT <60MIN RAINA BURROUGHS Jun 13, 2025 14:03
[2025-06-13 14:20] VITALS: BP 124/69; PULSE 98; RESP 18; TEMP 98.9; O2SAT 96
--- NOTE | 2025-06-13 14:26 | DVHDSRES ---
Discharge Summary Date of Admission Resident Creating Document: PATITO ROMERO RESIDENT Jun 12, 2025 at 19:33 Date of Discharge: Jun 13, 2025 Admitting Diagnosis Peptic ulcer disease Ruled out pancreatitis Sepsis Congestive heart failure Endometrial thickening, to rule out endometrial carcinoma Grade 3 obesity Type 2 diabetes mellitus Essential hypertension Dyslipidemia Labs/Diagnostic Data: Laboratory Results Test 06/13/25 04:40 06/12/25 21:00 06/12/25 19:50 06/12/25 15:21 White Blood Count 10.3 10^3/uL (4.4-10.8) Red Blood Count 4.72 10^6/uL (4.0-5.20) Hemoglobin 12.7 g/dL (12.2-16.2) Hematocrit 38.9 % (36.0-46.0) Mean Corpuscular Volume 82.4 fL (80.0-100.0) Mean Corpuscular Hemoglobin 26.9 pg (28.0-32.0) Mean Corpuscular Hemoglobin Concent 32.6 g/dL (32.0-36.0) Red Cell Distribution Width 19.7 % (11.8-14.3) Platelet Count 274 10^3/uL (140-450) Mean Platelet Volume 7.8 fL (6.9-10.8) Neutrophils (%) (Auto) 57.9 % (37.0-80.0) Lymphocytes (%) (Auto) 27.7 % (10.0-50.0) Monocytes (%) (Auto) 10.6 % (0.0-12.0) Eosinophils (%) (Auto) 3.3 % (0.0-7.0) Basophils (%) (Auto) 0.5 % (0.0-2.0) Neutrophils # (Auto) 6.0 10 ^3/uL (1.6-8.6) Lymphocytes # (Auto) 2.9 10 ^3/uL (0.4-5.4) Monocytes # (Auto) 1.1 10 ^3/uL (0-1.3) Eosinophils # (Auto) 0.3 10 ^3/uL (0-0.8) Basophils # (Auto) 0.1 10 ^3/uL (0-0.2) Nucleated Red Blood Cells 0.1 % Sodium Level 144 mmol/L (136-145) Potassium Level 3.1 mmol/L (3.5-5.1) Chloride Level 105 mmol/L (98-107) Carbon Dioxide Level 27 mmol/L (20-31) Anion Gap 12 (5-15) Blood Urea Nitrogen 14 mg/dL (9-23) Creatinine 0.61 mg/dL (0.550-1.02) Glomerular Filtration Rate Calc 99 mL/min (>90) BUN/Creatinine Ratio 23.0 (10.0-20.0) Serum Glucose 158 mg/dL (74-106) Calcium Level 9.0 mg/dL (8.7-10.4) Total Bilirubin 0.3 mg/dL (0.2-1.0) Aspartate Amino Transferase (AST) 55 U/L (13-40) Alanine Aminotransferase (ALT) 69 U/L (7-40) Alkaline Phosphatase 85 U/L (46-116) Total Protein 6.9 g/dL (5.7-8.2) Albumin 3.7 g/dL (3.2-4.8) Amylase Level 36 U/L (30-118) Lipase 28 U/L (12-53) Influenza Type A Antigen Negative (Negative) Influenza Type B Antigen Negative (Negative) SARS-CoV-2 Antigen (Rapid) Negative (NEGATIVE) Triglycerides Level 293 mg/dL (< 150) Cholesterol Level 275 mg/dL (< 200) LDL Cholesterol 209 mg/dL (< 100) HDL Cholesterol 31 mg/dL (40-59) Thyroid Stimulating Hormone (TSH) 2.06 uIU/mL (0.55-4.78) Hemoglobin A1c 7.4 % A1C (<5.7) B-Type Natriuretic Peptide 14.33 pg/mL (0-100) Other Laboratory Tests 06/13/25 04:40 Brief Hx & Hospital Course: Araceli Reddy is a 65-year-old female with past medical history of osteoarthritis, type 2 diabetes mellitus, essential hypertension, dyslipidemia, obesity presented to the ED with complaints of abdominal pain since 4 days. Patient rates the pain 9 on 10 in severity, increasing on eating, decreasing on fasting with no radiation, on and off and sharp in quality. She also complains of bilateral knee pain which has been chronic because of osteoarthritis. She used to take mounjaro but stopped recently because of abdominal pain. She reported taking NSAIDS for the osteoarthritis. While in the hospital she was treated with Protonix, Carafate, Colace, Tylenol. Patient symptomatically better and is being discharged. Outpatient follow-up with GI and obstetric and Gynecology advised. Condition at Discharge: Fair Final Diagnosis/Problems List Peptic ulcer disease Ruled out pancreatitis Sepsis Congestive heart failure Endometrial thickening, to rule out endometrial carcinoma Grade 3 obesity Type 2 diabetes mellitus Essential hypertension Dyslipidemia Discharge Disposition: Home Discharge Instruct/Medications Diet: Consistent carbohydrate Activity: No Restrictions, As Tolerated Follow Up/Referral: Follow up with PCP within 7 days . Follow up with Obgyn and GI. Medications: Pantoprazole 40 mg Scheduled Alpha Tocopheryl Acid Succinat (Vitamin E), 100 UNIT PO DAILY, (Reported) Ascorbic Acid (Vitamin C Tablet), 500 MG GT DAILY, (Reported) Cholecalciferol (D2000 Ultra Strength), 2,000 UNIT PO DAILY, (Reported) Fish Oil (Fish Oil), 1,000 MG PO DAILY, (Reported) Furosemide (Furosemide), 20 MG PO DAILY, (Reported) Pantoprazole Sodium Sesquihydr (Protonix), 40 MG PO BID Sucralfate (Carafate), 1 GM PO BID Miscellaneous Medications Ferrous Sulfate (Ferosul), 325 MG PO, (Reported) Discontinued Medications Acetaminophen (Acetaminophen ER 8 Hour A), 650 MG PO PRN, (Reported) Baclofen (Baclofen), 10 MG PO TID, (Reported) Cephalexin Monohydrate (Cephalexin), 500 MG PO Q6HR, (Reported) Hydrocodone-Acetaminophen (Hydrocodone Bitartrate/AC 5-325 mg), 1 TAB PO PRN, (Reported) Pantoprazole Sodium Sesquihydr (Protonix), 40 MG PO DAILY Potassium Chloride (Klor-Con M20), 20 MEQ PO DAILY, (Reported) Sucralfate (Carafate), 1 GM OR TID Discharge Statement: "Patient was advised to return to the ER or call 911 if any headaches, dizziness, shortness of breath, chest pain, abdominal pain, bleeding, fevers, or worsening of medical condition. Patient was counseled about treatment plan, medications, possible side effects, patientverbalized understanding. All questions were answered to the best of my ability. This discharge took greater then 30 minutes in planning, reviewing documentation, counseling the patient, and discussing with other team members." ASSESSMENT ASSESSMENT Assessment Peptic Ulcer Disease Date of Service: Jun 13, 2025 Billing Provider: HEATH CALLEJAS MD Common Visit Codes: 79140-HCH/OBS DISCH DAY >30min PATITO ROMERO RESIDENT Jun 13, 2025 14:26 HEATH CALLEJAS MD Jun 20, 2025 20:41
== END 2025-06-13 14:45 | disposition home or self-care (01) | DRG 378 ==
LOC: ER 14:35 → OVERFLOW 19:33 → EAST 06-13 01:55
PROVIDERS: ADMIT Internal Medicine Geriatric Medicine; ATTEND Internal Medicine Geriatric Medicine
DX: K27.4 Chronic or unspecified peptic ulcer, site unspecified, with hemorrhage (principal); Z68.42 Body mass index [BMI] 45.0-49.9, adult; I50.9 Heart failure, unspecified; I11.0 Hypertensive heart disease with heart failure; D07.0 Carcinoma in situ of endometrium; E66.9 Obesity, unspecified; Z20.822 Contact with and (suspected) exposure to COVID-19; E11.9 Type 2 diabetes mellitus without complications; K76.0 Fatty (change of) liver, not elsewhere classified; E78.5 Hyperlipidemia, unspecified; M17.0 Bilateral primary osteoarthritis of knee; Z83.3 Family history of diabetes mellitus; Z79.899 Other long term (current) drug therapy; Z90.49 Acquired absence of other specified parts of digestive tract
CPT/HCPCS: 36415; 74177; 76830; 76856; 80048; 80053; 80061; 82150; 83036; 83690; 83880; 84443; 85025; 87040; 87426; 87804; 93970; 96365; G0378; J2003; J2470

== ENCOUNTER 2025-06-14 15:46 | Inpatient (IN) | payer MEDICAID, OTHER ==
[~2025-06-14] VITALS: Ht 167.6 cm; Wt 129.4 kg
[~2025-06-14 15:46] MED LIST changes: +BACL10TA PO; +CEPH500C PO; +FERR325T20 PO; +FURO20TA3 PO; +MUPI2CRE17 EX; +PANT40TA2 PO; +SUCR1TAB31 OR
--- NOTE | 2025-06-14 16:11 | ED.PDOC ---
GI ASSESSMENT Chief Complaint: Abdominal Pain Time Seen by MD: 16:07 Primary Care Provider: JERRICA Reviewed Notes: Nurses Notes, City Bailiff Notes, Medications, Allergies Allergies: Coded Allergies: NO KNOWN ALLERGIES (Unverified , 09/01/24) Home Meds Active Scripts Sucralfate (CARAFATE) 1 Gm Tab, 1 GM OR TID for 30 Days, #90 TAB Prov:PALLAVI YOUNG RESIDENT 06/13/25 Pantoprazole Sodium Sesquihydr (Protonix) 40 Mg Tab, 40 MG PO DAILY for 30 Days, #30 TAB Prov:PALLAVI YOUNG RESIDENT 06/13/25 Reported Medications Baclofen (Baclofen) 10 Mg Tab, 10 MG PO TID, TAB 06/13/25 Mupirocin Calcium (Topical) (MUPIROCIN) 2 % Cre, 2 % EX, CRE 06/13/25 Cephalexin Monohydrate (Cephalexin) 500 Mg Cap, 500 MG PO Q6HR, MG 06/13/25 Ferrous Sulfate (Ferosul) 325 Mg Tab, 325 MG PO, TAB 06/13/25 Furosemide (Furosemide) 20 Mg Tab, 20 MG PO DAILY for 30 Days, MG 06/13/25 Baclofen (Baclofen) 20 Mg Tab, 20 MG PO TID, TAB 01/13/25 Cyclobenzaprine Hcl (Cyclobenzaprine Hcl) 5 Mg Tab, 5 MG PO TID, TAB 01/13/25 Tirzepatide (Mounjaro) 10 Mg/0.5 Ml Inj, 10 MG SC QWEEKLY, INJ 01/13/25 Cholecalciferol (D2000 Ultra Strength) 2,000 Unit Cap, 2000 UNIT PO DAILY, CAP 01/13/25 Ascorbic Acid (VITAMIN C TABLET) 500 Mg Tb, 500 MG GT DAILY, TAB 01/13/25 Alpha Tocopheryl Acid Succinat (VITAMIN E) 100 Unit Tab, 100 UNIT PO DAILY, TAB 01/13/25 Fish Oil (Fish Oil) 1,000 Mg Cap, 1000 MG PO DAILY, CAP 01/13/25 Hydrocodone-Acetaminophen (Hydrocodone Bitartrate/AC 5-325 mg) 1 Tab Tab, 1 TAB PO PRN, TAB 01/13/25 Acetaminophen (Acetaminophen ER 8 Hour A) 650 Mg Tab, 650 MG PO PRN, TAB 03/22/24 Potassium Chloride (Klor-Con M20) 20 Meq Tab, 20 MEQ PO DAILY, TAB 11/10/23 Information Source: Patient, Emergency Med Personnel Mode of Arrival: EMS Timing: Days Duration: Since onset Prehospital treatment: None Quality: Sharp Vomitus: None Stool: Normal Severity: Moderate Recent: None Recent Hx of: None Pain Location: Diffuse Modifying Factors: Nothing Associated sign and symptoms: Abdominal Pain Past Medical History PAST MEDICAL HISTORY: Arthritis, CHF, DM, High Lipids, HTN Past Medical History (Other): Chronic back pain Surgical History: Cholecystectomy, , Hernia Repair MANAGER WIRELESS History: No Pertinent MANAGER WIRELESS History Family History Family History: Reviewed,noncontributory to illness, Family hx of DM Social History Smoker: Non-Smoker Alcohol: Denies ETOH Use Drugs: Denies Drug Use Lives In: Home Constitutional: denies: chills, diaphoresis, fatigue, fever, malaise, sweats, weakness, others EENTM: denies: blurred vision, double vision, ear bleeding, ear discharge, ear drainage, ear pain, ear ringing, eye pain, eye redness, hearing loss, mouth pain, mouth swelling, nasal discharge, nose bleeding, nose congestion, nose pain, photophobia, tearing, throat pain, throat swelling, voice changes, others Respiratory: denies: cough, hemoptysis, orthopnea, SOB at rest, shortness of breath, SOB with excertion, stridor, wheezing, others Cardiovascular: denies: chest pain, dizzy spells, diaphoresis, Dyspnea on exertion, edema, irregular heart beat, left arm pain, lightheadedness, palpitations, PND, syncope, others Gastrointestinal: reports: abdominal pain; denies: abdomen distended, blood streaked bowels, constipated, diarrhea, dysphagia, difficulty swallowing, hematemesis, melena, nausea, poor appetite, poor fluid intake, rectal bleeding, rectal pain, vomiting, others Genitourinary: denies: abnormal vagina bleeding, burning, dyspareunia, dysuria, flank pain, frequency, hematuria, incontinence, pain, , vagina discharge, urgency, others Neurological: denies: dizziness, fainting, headache, left sided numbness, left sided weakness, numbness, paresthesia, pre-existing deficit, right sided numbness, right sided weakness, seizure, speech problems, tingling, tremors, weakness, others Musculoskeletal: denies: back pain, gout, joint pain, joint swelling, muscle pain, muscle stiffness, neck pain, others Integumetry: denies: bruises, change in color, change in hair/nails, dryness, laceration, lesions, lumps, rash, wounds, others Allergic/Immunocompromised: denies: Difficulty Healing, Frequent Infections, Hives, Itching, others Hematologic/Lymphatic: denies: anemia, blood clots, easy bleeding, easy bruising, swollen glands, others Endocrine: denies: excessive hunger, excessive sweating, excessive thirst, excessive urination, flushing, intolerance to cold, intolerance to heat, unexplained weight gain, unexplained weight loss, others Psychiatric: denies: anxiety, bipolar disorder, depression, hopeless, panic disorder, schizophrenia, sleepless, suicidal, others All Other Systems: Reviewed and Negative Was a procedure done? Was a procedure done?: No X-Ray, Labs, Meds, VS Vital Signs Date Time Temp Pulse Resp B/P (MAP) Pulse Ox O2 Delivery O2 Flow Rate FiO2 06/14/25 15:50 97.9 91 18 124/77 94 97.9 Reevaluation 1ST: Unchanged Patient Education/Counseling: Diagnosis, Treatment Family Education/Counseling: No Family Present SEPSIS Sepsis Screen Physician Orders Complete Blood Count (06/14/25 16:04) Comprehensive Metabolic Panel (06/14/25 16:04) Lipase (06/14/25 16:04) Urinalysis (06/14/25 16:04) Ondansetron Hcl (Zofran) (06/14/25 16:15) Ct Ab Pel Wo Con-No Oral Or Iv (06/14/25 16:04) Heplock Iv (06/14/25 16:04) Hydromorphone Injection (Dilaudid Inject (06/14/25 16:15) Sodium Chloride 0.9% (06/14/25 16:15) Tile Conduit Layer (06/14/25 16:04) Blood Pressure (06/14/25 16:04) Pulse Oximetry (06/14/25 16:04) Electrocardigram (06/14/25 16:04) Vital Signs Date Time Temp Pulse Resp B/P (MAP) Pulse Ox O2 Delivery O2 Flow Rate FiO2 06/14/25 15:50 97.9 91 18 124/77 94 97.9 Critical Care Note Critical Care Time?: No Stability Stability form required: No Heart Score Heart Score: Heart Score Response (Comments) Value History N/A 0 EKG N/A 0 Age N/A 0 Risk Factors N/A 0 Troponin N/A 0 Total 0 I personally scribed for YOUNG SALDANA MD ([email or web address]) on 06/14/25 at 16:11. Electronically submitted by Segun Ivey ([email or web address]). I personally scribed for YOUNG SALDANA MD ([email or web address]) on 06/14/25 at 16:11. Electronically submitted by Segun Ivey ([email or web address]). YOUNG SALDANA MD Jun 14, 2025 16:11
--- NOTE | 2025-06-14 16:13 | ED.PDOC ---
GI ASSESSMENT HPI Comments This is a 65 year old female MYLESA presenting to the ED with chief complaint of abdominal pain. Patient reports that she has been experiencing diffuse, 10/10 abdominal pain that is worse on the LUQ for the past 5 days. Patient relays that she was previously admitted 2 days ago in [facility] for the same complaint, being discharged yesterday, however, she is continuing to have the same pain. Patient states she is pending a follow up with Dr. Whitehead for an endoscopy. EMS notes patient was given 50mL of fluids IV. Patient denies any vomiting, nausea, fever, chills, chest pain, SOB, dizziness, headache, or flank pain. Chief Complaint: Abdominal Pain Time Seen by MD: 16:12 Primary Care Provider: JERRICA Reviewed Notes: Nurses Notes, Internet Sales Consultant Notes, Medications, Allergies Allergies: Coded Allergies: NO KNOWN ALLERGIES (Unverified , 09/01/24) Home Meds Active Scripts Sucralfate (CARAFATE) 1 Gm Tab, 1 GM OR TID for 30 Days, #90 TAB Prov:PALLAVI YOUNG RESIDENT 06/13/25 Pantoprazole Sodium Sesquihydr (Protonix) 40 Mg Tab, 40 MG PO DAILY for 30 Days, #30 TAB Prov:PALLAVI YOUNG RESIDENT 06/13/25 Reported Medications Baclofen (Baclofen) 10 Mg Tab, 10 MG PO TID, TAB 06/13/25 Mupirocin Calcium (Topical) (MUPIROCIN) 2 % Cre, 2 % EX, CRE 06/13/25 Cephalexin Monohydrate (Cephalexin) 500 Mg Cap, 500 MG PO Q6HR, MG 06/13/25 Ferrous Sulfate (Ferosul) 325 Mg Tab, 325 MG PO, TAB 06/13/25 Furosemide (Furosemide) 20 Mg Tab, 20 MG PO DAILY for 30 Days, MG 06/13/25 Baclofen (Baclofen) 20 Mg Tab, 20 MG PO TID, TAB 01/13/25 Cyclobenzaprine Hcl (Cyclobenzaprine Hcl) 5 Mg Tab, 5 MG PO TID, TAB 01/13/25 Tirzepatide (Mounjaro) 10 Mg/0.5 Ml Inj, 10 MG SC QWEEKLY, INJ 01/13/25 Cholecalciferol (D2000 Ultra Strength) 2,000 Unit Cap, 2000 UNIT PO DAILY, CAP 01/13/25 Ascorbic Acid (VITAMIN C TABLET) 500 Mg Tb, 500 MG GT DAILY, TAB 01/13/25 Alpha Tocopheryl Acid Succinat (VITAMIN E) 100 Unit Tab, 100 UNIT PO DAILY, TAB 01/13/25 Fish Oil (Fish Oil) 1,000 Mg Cap, 1000 MG PO DAILY, CAP 01/13/25 Hydrocodone-Acetaminophen (Hydrocodone Bitartrate/AC 5-325 mg) 1 Tab Tab, 1 TAB PO PRN, TAB 01/13/25 Acetaminophen (Acetaminophen ER 8 Hour A) 650 Mg Tab, 650 MG PO PRN, TAB 03/22/24 Potassium Chloride (Klor-Con M20) 20 Meq Tab, 20 MEQ PO DAILY, TAB 11/10/23 Information Source: Patient, Emergency Med Personnel Mode of Arrival: EMS Timing: Days Duration: Since onset Prehospital treatment: None Quality: Sharp Vomitus: None Stool: Normal Severity: Moderate Recent: None Recent Hx of: None Pain Location: Diffuse Modifying Factors: Nothing Associated sign and symptoms: Abdominal Pain Past Medical History PAST MEDICAL HISTORY: Arthritis, CHF, DM, High Lipids, HTN Past Medical History (Other): Chronic back pain Surgical History: Cholecystectomy, , Hernia Repair PARALEGAL INSTRUCTOR History: No Pertinent PARALEGAL INSTRUCTOR History Family History Family History: Reviewed,noncontributory to illness, Family hx of DM Social History Smoker: Non-Smoker Alcohol: Denies ETOH Use Drugs: Denies Drug Use Lives In: Home Constitutional: denies: chills, diaphoresis, fatigue, fever, malaise, sweats, weakness, others EENTM: denies: blurred vision, double vision, ear bleeding, ear discharge, ear drainage, ear pain, ear ringing, eye pain, eye redness, hearing loss, mouth pain, mouth swelling, nasal discharge, nose bleeding, nose congestion, nose pain, photophobia, tearing, throat pain, throat swelling, voice changes, others Respiratory: denies: cough, hemoptysis, orthopnea, SOB at rest, shortness of breath, SOB with excertion, stridor, wheezing, others Cardiovascular: denies: chest pain, dizzy spells, diaphoresis, Dyspnea on exer tion, edema, irregular heart beat, left arm pain, lightheadedness, palpitations, PND, syncope, others Gastrointestinal: reports: abdominal pain; denies: abdomen distended, blood streaked bowels, constipated, diarrhea, dysphagia, difficulty swallowing, hematemesis, melena, nausea, poor appetite, poor fluid intake, rectal bleeding, rectal pain, vomiting, others Genitourinary: denies: abnormal vagina bleeding, burning, dyspareunia, dysuria, flank pain, frequency, hematuria, incontinence, pain, , vagina discharge, urgency, others Neurological: denies: dizziness, fainting, headache, left sided numbness, left sided weakness, numbness, paresthesia, pre-existing deficit, right sided numbness, right sided weakness, seizure, speech problems, tingling, tremors, weakness, others Musculoskeletal: denies: back pain, gout, joint pain, joint swelling, muscle pain, muscle stiffness, neck pain, others Integumetry: denies: bruises, change in color, change in hair/nails, dryness, laceration, lesions, lumps, rash, wounds, others Allergic/Immunocompromised: denies: Difficulty Healing, Frequent Infections, Hives, Itching, others Hematologic/Lymphatic: denies: anemia, blood clots, easy bleeding, easy bruising, swollen glands, others Endocrine: denies: excessive hunger, excessive sweating, excessive thirst, excessive urination, flushing, intolerance to cold, intolerance to heat, unexplained weight gain, unexplained weight loss, others Psychiatric: denies: anxiety, bipolar disorder, depression, hopeless, panic disorder, schizophrenia, sleepless, suicidal, others All Other Systems: Reviewed and Negative Physical Exam General Appearance: Moderate Distress HEENT: Normal ENT Inspection, Pharynx Normal, TMs Normal Neck: Full Range of Motion, Non-Tender, Normal, Normal Inspection Respiratory: Chest Non-Tender, Lungs Clear, No Accessory Muscle Use, No Respiratory Distress, Normal Breath Sounds Cardiovascular: No Edema, No JVD, No Murmur, No Gallop, Normal Peripheral Pulses, Regular Rate/Rhythm Breast Exam: Deferred Gastrointestinal: LLQ, LUQ, No Organomegaly, No Pulsatile Mass, Normal Bowel Sounds, Soft, Tenderness Genitalia: Deferred Pelvic: Deferred Rectal: Deferred Extremities: No calf tenderness, Normal capillary refill, Normal inspection, Normal range of motion, Non-tender, No pedal edema Musculoskeletal : Apperance: Normal Neurologic: Alert, tar worker II-XII nml as Tested, Motor Weakness, Normal Affect, Normal Mood, No Sensory Deficits Cerebellar Function: Normal Reflexes: Normal Skin: Dry, Normal Color, Warm Lymphatic: No Adenopathy Was a procedure done? Was a procedure done?: No GI differential Dx Differential Diagnosis: Appendicitis, Gastritis/PUD, Gastroenteritis, Inflammatory BD, Pancreatitis, UTI, Electrolyte Imbalance, Food Poisoning X-Ray, Labs, Meds, VS Vital Signs Date Time Temp Pulse Resp B/P (MAP) Pulse Ox O2 Delivery O2 Flow Rate FiO2 06/14/25 15:50 97.9 91 18 124/77 94 97.9 Lab Test 06/14/25 16:32 Range/Units White Blood Count 10.0 4.4-10.8 10^3/uL Red Blood Count 4.89 4.0-5.20 10^6/uL Hemoglobin 13.2 12.2-16.2 g/dL Hematocrit 40.0 36.0-46.0 % Mean Corpuscular Volume 81.8 80.0-100.0 fL Mean Corpuscular Hemoglobin 27.1 L 28.0-32.0 pg Mean Corpuscular Hemoglobin Concent 33.1 32.0-36.0 g/dL Red Cell Distribution Width 19.6 H 11.8-14.3 % Platelet Count 312 140-450 10^3/uL Mean Platelet Volume 7.8 6.9-10.8 fL Neutrophils (%) (Auto) 52.6 37.0-80.0 % Lymphocytes (%) (Auto) 34.9 10.0-50.0 % Monocytes (%) (Auto) 9.0 0.0-12.0 % Eosinophils (%) (Auto) 3.0 0.0-7.0 % Basophils (%) (Auto) 0.5 0.0-2.0 % Neutrophils # (Auto) 5.3 1.6-8.6 10 ^3/uL Lymphocytes # (Auto) 3.5 0.4-5.4 10 ^3/uL Monocytes # (Auto) 0.9 0-1.3 10 ^3/uL Eosinophils # (Auto) 0.3 0-0.8 10 ^3/uL Basophils # (Auto) 0.1 0-0.2 10 ^3/uL Nucleated Red Blood Cells 0.2 % Sodium Level 142 136-145 mmol/L Potassium Level 3.5 3.5-5.1 mmol/L Chloride Level 106 98-107 mmol/L Carbon Dioxide Level 25 20-31 mmol/L Anion Gap 11 5-15 Blood Urea Nitrogen 13 9-23 mg/dL Creatinine 0.44 L 0.550-1.02 mg/dL Glomerular Filtration Rate Calc 107 >90 mL/min BUN/Creatinine Ratio 29.5 H 10.0-20.0 Serum Glucose 102 74-106 mg/dL Calcium Level 8.8 8.7-10.4 mg/dL Total Bilirubin 0.4 0.2-1.0 mg/dL Aspartate Amino Transferase (AST) 53 H 13-40 U/L Alanine Aminotransferase (ALT) 58 H 7-40 U/L Alkaline Phosphatase 91 46-116 U/L Total Protein 7.3 5.7-8.2 g/dL Albumin 3.7 3.2-4.8 g/dL Lipase 30 12-53 U/L CT Abd/Pel indicates: 1. No CT evidence of an acute abdominal/pelvic process. The patient's CBC is within normal limits The chemistry panel is limits. The lipase is within limits Patient is being admitted with a diagnosis of intractable pain Images Reviewed?: Images reviewed and evaluated by me Time of 1ST Reevaluation: 19:32 Reevaluation 1ST: Unchanged Patient Education/Counseling: Diagnosis, Treatment, Prognosis Family Education/Counseling: No Family Present SEPSIS Sepsis Screen Date sepsis recognized/suspect: Jun 14, 2025 Time Sepsis recognized/suspect: 1550 Recent Procedure: No On Antibiotic Therapy: No Respiratory Rate >20: No Heart Rate >90: Yes Temp<36 C (96.8 F) or >38.3 C: No SBP <90 or MAP <65 mmHG: No New Acute Mental Status Change: No Is the patient on CPAP, BIPAP,: No Physician Orders Urinalysis (06/14/25 16:04) Ct Ab Pel Wo Con-No Oral Or Iv (06/14/25 16:04) Heplock Iv (06/14/25 16:04) Armament Aircraft Mechanic (06/14/25 16:04) Blood Pressure (06/14/25 16:04) Pulse Oximetry (06/14/25 16:04) Electrocardigram (06/14/25 16:04) Vital Signs Date Time Temp Pulse Resp B/P (MAP) Pulse Ox O2 Delivery O2 Flow Rate FiO2 06/14/25 15:50 97.9 91 18 124/77 94 97.9 Laboratory Tests Test 06/14/25 16:32 White Blood Count 10.0 10^3/uL (4.4-10.8) Departure 1 Departure Time of Disposition: 19:32 Impression: Primary Impression: Intractable abdominal pain Disposition: ADMITTED INPATIENT Admit to: Med Surg Condition: Fair Critical Care Note Critical Care Time?: No Stability Stability form required: Yes Unstable for transfer: ED Physician Assesment (Clinical assesment) Heart Score Heart Score: Heart Score Response (Comments) Value History N/A 0 EKG N/A 0 Age N/A 0 Risk Factors N/A 0 Troponin N/A 0 Total 0 I personally scribed for ROSHNI HYLTON MD ([email or web address]) on 06/14/25 at 16:13. Electronically submitted by Segun Ivey ([email or web address]). I personally scribed for ROSHNI HYLTON MD ([email or web address]) on 06/14/25 at 17:13. Electronically submitted by Segun Ivey ([email or web address]). I personally scribed for ROSHNI HYLTON MD ([email or web address]) on 06/14/25 at 18:01. Electronically submitted by John Cantu ([email or web address]). ROSHNI HYLTON MD Jun 14, 2025 16:13
--- NOTE | 2025-06-14 16:54 | DVH ---
EXAM: CT CT AB PEL WO CON-NO ORAL OR IV INDICATION: pain TECHNIQUE: Volumetric multidetector CT images of the abdomen and pelvis were obtained without contras t. All CT scans at this facility use dose modulation, iterative reconstruction, and/or weight based d osing when appropriate to reduce radiation dose to as low as reasonably achievable. COMPARISON: US PELVIC on DOS: 06/12/25 FINDINGS: [LOWER CHEST]: The partially visualized lung bases are clear without a pleural effusion. The cardiac size is normal without pericardial effusion. coronary artery calcifications. [LIVER]: Normal hepatic size without suspicious focal lesion. [GALLBLADDER AND BILIARY TREE]: Surgically absent. [SPLEEN]: Unremarkable. [PANCREAS]: Unremarkable. [ADRENAL GLANDS]: Unremarkable [KIDNEYS]: No hydronephrosis. No nephroureterolithiasis. [BLADDER]: Unremarkable for the degree distention. [REPRODUCTIVE ORGANS]: Unremarkable. [BOWEL/MESENTERY]: Stomach is normal. No CT evidence of bowel obstruction. [ASCITES]: Absent [LYMPHADENOPATHY]: No pathologically enlarged lymph nodes by CT size criteria [VASCULATURE]: No aneurysmal dilatation. [ABDOMINAL WALL]: Unremarkable. [MUSCULOSKELETAL]: No acute fracture or aggressive focal osseous lesion. IMPRESSION: 1. No CT evidence of an acute abdominal/pelvic process.
[2025-06-14 17:45] LABS: Hematocrit 40.0 % (36.0-46.0); Hemoglobin 13.2 g/dL (12.2-16.2); Mean Corpuscular Hemoglobin 27.1 pg (28.0-32.0); Mean Corpuscular Volume 81.8 fL (80.0-100.0); Nucleated Red Blood Cells % 0.2 %
[2025-06-14 17:46] LABS: Alkaline Phosphatase 91 U/L (46-116); Anion Gap 11 (5-15); BUN/Creatinine Ratio 29.5 (10.0-20.0); Blood Urea Nitrogen 13 mg/dL (9-23); Calcium 8.8 mg/dL (8.7-10.4); Carbon Dioxide 25 mmol/L (20-31); Chloride 106 mmol/L (98-107); Glucose 102 mg/dL (74-106); Lipase 30 U/L (12-53); Potassium 3.5 mmol/L (3.5-5.1); Sodium 142 mmol/L (136-145); Total Protein 7.3 g/dL (5.7-8.2)
[2025-06-14 17:47] LABS: Albumin 3.7 g/dL (3.2-4.8); Bilirubin, Total 0.4 mg/dL (0.2-1.0)
[2025-06-14 17:48] LABS: Alanine Aminotransferase 58 U/L (7-40)
--- NOTE | 2025-06-14 23:44 | DVHPNRES ---
Progress Note Date Seen: Jun 14, 2025 Resident Creating Document: BIRD LANDIS Objective vital signs Vital Sign Date Time Temp Pulse Resp B/P (MAP) Pulse Ox O2 Delivery O2 Flow Rate FiO2 06/14/25 23:20 98.1 99 16 125/62 (83) 92 98.1 laboratory and microbiology Laboratory Tests 06/14/25 16:32 Test 06/14/25 16:32 Range/Units Serum Glucose 102 74-106 mg/dL BIRD LANDIS RESIDENT Jun 14, 2025 23:44
[2025-06-15] VITALS (11 sets, daily range): BP systolic 110–171; BP diastolic 48–81; PULSE 90–104; RESP 18–20; TEMP 97.8–98; O2SAT 91–96
[2025-06-15] MEDS: LACTULOSE 20Gm/30ML SOLN PO ONE (00:30)
[2025-06-15] MEDS: SUCRALFATE 1 GM TAB PO ONE (00:30)
[2025-06-15] MEDS ORDERED: ONDANSETRON HCL 4 MG/2 ML VIAL IV PRN (00:30)
[2025-06-15] MEDS ORDERED: POLYETHYLENE GLYCOL 17 GM PWDR PO PRN (00:30)
[2025-06-15] MEDS: BISACODYL 5 MG EC TAB PO ONE (00:30)
[2025-06-15 00:31] LABS: Urine Amorphous Crystal MOD /hpf (None Seen); Urine Protein, UAD 1+ (Negative)
[2025-06-15 01:52] LABS: INR 1.11 (0.9-1.15); Lipase 25 U/L (12-53); Partial Thromboplastin Time 26.1 SEC (24.5-34.5); Prothrombin Time 11.6 sec (9.3-11.8)
[2025-06-15 01:53] LABS: Amylase 35 U/L (30-118)
--- NOTE | 2025-06-15 02:26 | DVHHPRES ---
History of Present Illness Resident Creating Document: BIRD LANDIS History of Present Illness Patient is a 65-year-old female with past medical history of osteoarthritis, type 2 diabetes mellitus, essential hypertension, dyslipidemia, presented to [facility] ED with complaint of diffuse abdominal pain, rated 10/10 in severity, with maximal tenderness in the left upper quadrant (LUQ). Symptoms have been ongoing for the past 5 days. She reports that she was previously admitted to [facility] ([facility]) two days ago for the same complaint and was discharged yesterday. Despite discharge, she continues to experience the same abdominal pain. Patient states she is currently awaiting a follow-up appointment with Dr. Whitehead for an endoscopy. EMS reports that the patient received 50 mL of IV fluids en route to the ED. On evaluation in the ED, patient is afebrile, vitals are stable. Initial labs shows creatinine 0.44, AST 53 and ALT 58. Abdominal CT shows no CT evidence of an acute abdominal/pelvic process. The patient was placed NPO, started on IV antibiotics and IV fluids. Patient is admitted for further evaluation and management. Past Medical History osteoarthritis, type 2 diabetes mellitus, essential hypertension, dyslipidemia Past Surgical History: Cholecystectomy, , Hernia Repair Family History: None Smoke: No ALCOHOL: none Drugs: None Review of Systems Review of Systems Eyes: No Pain, No Vision change, No Conjunctivae inflammation, No Eyelid inflammation, No Other, No Redness ENT: No Ear pain, No Ear discharge, No Nose pain, No Nose discharge, No Nose congestion, No Mouth pain, No Mouth swelling, No Throat pain, No Throat swelling, No Other Cardiovascular: No Chest Pain, No Palpitations, No Orthopnea, No Paroxysmal No Dyspnea, No Edema, No Lt Headedness, No Other Respiratory: No Cough, No Dry, No Shortness of breath, No SOB with exertion, No Wheezing, No Hemoptysis, No Pleuritic Pain, No Sputum, No Other Gastrointestinal: No Nausea, No Vomiting, Abdominal Pain, No Diarrhea, No Constipation, No Melena, No Hematochezia, No Other Genitourinary: No Dysuria, No Frequency, No Incontinence, No Hematuria, No Retention, No Other Musculoskeletal: No other, No neck pain, No shoulder pain, No arm pain, back pain, No hand pain, No leg pain, No foot pain Skin: No Rash, No Lesions, No Jaundice, No Bruising, No Other Gastrointestinal: Vomiting Allergies: Coded Allergies: NO KNOWN ALLERGIES (Unverified , 09/01/24) Medications Current Medications Medications Dose Ordered Sig/Luis M Route Start Time Stop Time Status Last Admin Dose Admin Sodium Chloride 10 ml Q8HR IV 06/15/25 06:00 Ondansetron HCl 4 mg Q4HP PRN IV 06/15/25 00:30 Pantoprazole Sodium 40 mg BID IV 06/15/25 10:00 Sucralfate 1 gm QIDACHS PO 06/15/25 07:00 Polyethylene Glycol 17 gm DAILYPRN PRN PO 06/15/25 00:30 Hydromorphone HCl 0.25 mg Q4HPRN PRN IV 06/15/25 00:30 Exam Vital Signs Vital Signs Date Time Temp Pulse Resp B/P (MAP) Pulse Ox O2 Delivery O2 Flow Rate FiO2 06/14/25 23:20 98.1 99 16 125/62 (83) 92 98.1 Exam General Appearance: Cooperative. Well developed. Well nourished. NAD Head Exam: Normal inspection Neck Exam: Normal inspection. Non-tender. Normal alignment Pulmonary/Respiratory: Chest non-tender. Clear bilateral breath sounds, no crackles, no wheezing. Cardiovascular/Chest: Regular rate and rhythm. No murmurs. No JVD. Peripheral Pulses: 2+ Radial (R). 2+ Radial (L). 2+ Pedal (R). 2+ Pedal (L) Abdominal: Diffuse abdominal tenderness present, Normal bowel sounds, Soft, No hepatospenomegaly, No masses Ankle Exam: Negative ankle edema Extremities: No clubbing, No cyanosis, Normal pulses, bilateral nonpitting pedal edema Neuro/Mental Status: A&O x4. Coherent. Thoughts/Psych: Normal thought pattern. Appropriate mood and affect. Good judgement and insight Skin Exam: Normal inspection. Normal color. Warm. Dry Labs/Xrays Labs Test 06/15/25 01:02 06/14/25 23:58 06/14/25 16:32 Range/Units Prothrombin Time 11.6 9.3-11.8 sec Prothrombin Time INR 1.11 0.9-1.15 Activated Partial Thromboplast Time 26.1 24.5-34.5 SEC Amylase Level 35 30-118 U/L Lipase 25 12-53 U/L Thyroid Stimulating Hormone (TSH) 3.26 0.55-4.78 uIU/mL Urine Color Dark-brown Yellow Urine Clarity Ex.turbid Clear Urine pH 5.5 5.0-9.0 Urine Specific [place] 1.028 1.001-1.035 Urine Protein 1+ H Negative Urine Ketones 2+ H Negative Urine Blood Negative Negative /uL Urine Nitrite Negative Negative Urine Bilirubin Negative Negative Urine Urobilinogen Normal Negative mg/dL Urine Leukocyte Esterase Trace Negative /uL Urine RBC None seen 0 - 4 /hpf Urine Microscopic WBC < 1 0-5 /HPF Urine Squamous Epithelial Cells Mod <5 /hpf Urine Amorphous Crystals Mod None Seen /hpf Urine Bacteria Few H None Seen /hpf Urine Mucus Few None Seen Urine Glucose Trace Normal mg/dL White Blood Count 10.0 4.4-10.8 10^3/uL Red Blood Count 4.89 4.0-5.20 10^6/uL Hemoglobin 13.2 12.2-16.2 g/dL Hematocrit 40.0 36.0-46.0 % Mean Corpuscular Volume 81.8 80.0-100.0 fL Mean Corpuscular Hemoglobin 27.1 L 28.0-32.0 pg Mean Corpuscular Hemoglobin Concent 33.1 32.0-36.0 g/dL Red Cell Distribution Width 19.6 H 11.8-14.3 % Platelet Count 312 140-450 10^3/uL Mean Platelet Volume 7.8 6.9-10.8 fL Neutrophils (%) (Auto) 52.6 37.0-80.0 % Lymphocytes (%) (Auto) 34.9 10.0-50.0 % Monocytes (%) (Auto) 9.0 0.0-12.0 % Eosinophils (%) (Auto) 3.0 0.0-7.0 % Basophils (%) (Auto) 0.5 0.0-2.0 % Neutrophils # (Auto) 5.3 1.6-8.6 10 ^3/uL Lymphocytes # (Auto) 3.5 0.4-5.4 10 ^3/uL Monocytes # (Auto) 0.9 0-1.3 10 ^3/uL Eosinophils # (Auto) 0.3 0-0.8 10 ^3/uL Basophils # (Auto) 0.1 0-0.2 10 ^3/uL Nucleated Red Blood Cells 0.2 % Sodium Level 142 136-145 mmol/L Potassium Level 3.5 3.5-5.1 mmol/L Chloride Level 106 98-107 mmol/L Carbon Dioxide Level 25 20-31 mmol/L Anion Gap 11 5-15 Blood Urea Nitrogen 13 9-23 mg/dL Creatinine 0.44 L 0.550-1.02 mg/dL Glomerular Filtration Rate Calc 107 >90 mL/min BUN/Creatinine Ratio 29.5 H 10.0-20.0 Serum Glucose 102 74-106 mg/dL Calcium Level 8.8 8.7-10.4 mg/dL Total Bilirubin 0.4 0.2-1.0 mg/dL Aspartate Amino Transferase (AST) 53 H 13-40 U/L Alanine Aminotransferase (ALT) 58 H 7-40 U/L Alkaline Phosphatase 91 46-116 U/L Total Protein 7.3 5.7-8.2 g/dL Albumin 3.7 3.2-4.8 g/dL SEPSIS Sepsis Screen Date sepsis recognized/suspect: Jun 14, 2025 Time Sepsis recognized/suspect: 1549 Recent Procedure: No On Antibiotic Therapy: No Respiratory Rate >20: No Heart Rate >90: Yes Temp<36 C (96.8 F) or >38.3 C: No SBP <90 or MAP <65 mmHG: No New Acute Mental Status Change: No Is the patient on CPAP, BIPAP,: No Physician Orders Admit (06/15/25:24) Allergies (06/15/25 00:24) Code Status (06/15/25) Sodium Chloride Lock (Saline Lock Ns) (06/15/25 06:00) Ondansetron Hcl (Zofran) (06/15/25 00:30) Complete Blood Count (06/16/25 04:00) Comprehensive Metabolic Panel (06/16/25 04:00) Condition: Serious (06/15/25:24) Stat Ekg For Chest Pain (06/15/25:24) Notify Of Changes From Base (06/15/25:24) Grab Operator For 24 Hours (06/15/25 00:24) Emergency Dysrhythmia Protocol (06/15/25 00:24) Rhythm Strips Once Every Shift (06/15/25:24) Stool Occult Blood (06/15/25 00:24) LIVER (06/15/25 00:24) Urinalysis (06/15/25 00:24) Drug Screen (06/15/25 00:24) Pantoprazole (Protonix) (06/15/25 10:00) Sucralfate Tab (Carafate Tab) (06/15/25 07:00) Polyethylene Glycol 17g Powder (Miralax (06/15/25 00:30) * Gi Dvh Assistant Production Manager (06/15/25 00:24) Npo Except For Medications (06/15/25 00:24) Npo (Nothing By Mouth) Diet (06/15/25 Breakfast) Hydromorphone Injection (Dilaudid Inject (06/15/25 00:30) Vital Signs Date Time Temp Pulse Resp B/P (MAP) Pulse Ox O2 Delivery O2 Flow Rate FiO2 06/14/25 23:20 98.1 99 16 125/62 (83) 92 98.1 Laboratory Tests Test 06/14/25 16:32 White Blood Count 10.0 10^3/uL (4.4-10.8) Assessment/Plan Assessment/Plan Intractable abdominal pain likely due to peptic ulcer disease, acute gastroenteritis Transaminase due to above Abdomen/Pelvis CT: No CT evidence of an acute abdominal/pelvic process. Liver US: Hepatic steatosis and hepatomegaly. GI consult pending pain management with Dilaudid 0.25 MG IV q6h prn Zofran 4 MG IV q4h Sucralfate 1 GM PO qid IV NS Stool Occult Blood UA MRSA screen GI bleed can not be ruled out Stool occult blood Ruled out pancreatitis Normal Lipase Type 2 diabetes mellitus A1c pending Serum glucose normal History of hypertension Controlled Dyslipidemia Follow lipid levels Diet: NPO PUD prophylaxis: Protonix 40mg Goals of care: Full code, discussed for >16 minutes on 06/15/25 Plan discussed with patient Plan discussed with Dr. Newell Plan discussed with: Patient, Daughter My Orders Orders - BIRD LANDIS Procedure Category Date Status Time Admit ADMIT 06/15/25 Transmitted 00:24 Allergies SHANNON 06/15/25 In Process 00:24 Code Status CODE 06/15/25 Transmitted 00:24 Sodium Chloride Lock PHA 06/15/25 In Process (Saline Lock Ns) 06:00 Ondansetron Hcl PHA 06/15/25 In Process (Zofran) 00:30 Complete Blood Count LAB 06/16/25 Verified 04:00 Comprehensive LAB 06/16/25 Verified Metabolic Panel 04:00 Condition: Serious SHANNON 06/15/25 In Process 00:24 Stat Ekg For Chest SHANNON 06/15/25 In Process Pain 00:24 Notify Of Changes SHANNON 06/15/25 In Process From Base 00:24 Grab Operator For SHANNON 06/15/25 In Process 24 Hours 00:24 Emergency Dysrhythmia SHANNON 06/15/25 In Process Protocol 00:24 Rhythm Strips Once SHANNON 06/15/25 In Process Every Shift 00:24 Stool Occult Blood LAB 06/15/25 Logged 00:24 LIVER US 06/15/25 Taken 00:24 Urinalysis LAB 06/15/25 Logged 00:24 Drug Screen LAB 06/15/25 Logged 00:24 Pantoprazole PHA 06/15/25 In Process (Protonix) 10:00 Sucralfate Tab PHA 06/15/25 In Process (Carafate Tab) 07:00 Polyethylene Glycol PHA 06/15/25 In Process 17g Powder (Miralax 00:30 * Gi Dvh Assistant Production Manager CONS 06/15/25 Transmitted 00:24 Npo Except For SHANNON 06/15/25 In Process Medications 00:24 Npo (Nothing By DIET 06/15/25 Transmitted Mouth) Diet Breakfast Hydromorphone PHA 06/15/25 In Process Injection (Dilaudid 00:30 Date of Service: Jun 15, 2025 Billing Provider: PAULA NEWELL MD Common Visit Codes: [id number] INP/OBS CARE (HIGH) Secondary Visit Codes: [id number] CARE PLAN 30 MINUTES BIRD LANDIS RESIDENT Jun 15, 2025 02:26 RICCI HOSKINS RESIDENT Jun 15, 2025 08:18 PAULA NEWELL MD Jun 15, 2025 08:47
--- NOTE | 2025-06-15 02:29 | DVH ---
INDICATION: abdominal pain, transaminas TECHNIQUE: Multiple real-time sonographic images were obtained of the right upper quadrant. COMPARISON: US PELVIC on DOS: 06/12/25, US ABDOMEN LIMITED on DOS: 03/14/25, US PELVIC on DOS: 10/07/24 FINDINGS: The liver demonstrates diffusely increased echotexture without focal mass lesions. The live r measures 20.3 cm. Normal hepatopetal portal venous flow identified. No evidence of pleural effusio n or abdominal ascites. There is no intrahepatic or extrahepatic ductal dilatation. The common duct measures 0.4 cm. The gallbladder is surgically absent. The right kidney measures 11.0 cm. The right kidney is normal in contour, size, and shape. The echoge nicity is normal. There is no hydronephrosis. The pancreas is not well visualized due to overlying bowel gas. IMPRESSION: 1. Hepatic steatosis and hepatomegaly.
[2025-06-15] MEDS: PANTOPRAZOLE 40 MG/10 ML VIAL INJ IV ONE (03:59)
[2025-06-15] MEDS: HYDROmorphone HCL 2 MG/ML VL/or syr IV PRN (05:43)
[2025-06-15] MEDS: SODIUM CHLOR 0.9% PF (SALINE LOCK) 10ML VIAL/SYR IV SCH (06:34)
[2025-06-15] MEDS: SUCRALFATE 1 GM TAB PO SCH (06:47)
[2025-06-15] MEDS: HYDROmorphone HCL 2 MG/ML VL/or syr IV ONE (07:49)
[2025-06-15] MEDS: SODIUM CHLORIDE 0.9% 500 ML IVB ONE (07:49)
[2025-06-15] MEDS: ONDANSETRON HCL 4 MG/2 ML VIAL IV ONE (07:49)
[2025-06-15] MEDS: PANTOPRAZOLE 40 MG/10 ML VIAL INJ IV SCH (09:50)
[2025-06-15 12:08] LABS: Urine Amorphous Crystal MOD /hpf (None Seen); Urine Protein, UAD 1+ (Negative)
[2025-06-15 13:23] LABS: Cannabinoid Screen, Urine Pos (NEGATIVE)
[2025-06-15 13:29] LABS: Amphetamine Screen, Urine Neg (NEGATIVE); Barbiturate Scree,Urine Neg (NEGATIVE); Benzodiazephine Screen, Urine Neg (NEGATIVE); Cocaine Screen, Urine Neg (NEGATIVE); Opiate Scree,Urine Pos (NEGATIVE); Phencyclidine Screen, Urine Neg (NEGATIVE)
[2025-06-15] MEDS: SUCRALFATE 1 GM/10 ML ORAL SUSP PO ONE (14:40)
--- NOTE | 2025-06-15 16:25 | DVHCONRES ---
Date Seen: Jun 15, 2025 Resident Creating Document: JHAJJLA RESIDENT Referring Physician You Reason for Consultation Upper GI bleed History of Present Illness Patient is a 65y/o female with a PMHx of osteoarthritis, type 2 diabetes mellitus, essential hypertension, dyslipidemia, presented to [facility] ED with complaint of diffuse abdominal pain, rated 10/10 in severity, with maximal tenderness in the left upper quadrant (LUQ). Symptoms have been ongoing for the past 5 days. patient also reported to have N/V associated with heart burn. She has had intermittant black tarry stools in the last 3 months. patient denied any dysphagia/odynophagia. denied chronic NSAID use or excessive caffiene intake. CT abd/pelvis did not show any acute abd abnormality. Liver US showed hepatomegaly and hepatic steatosis Past Medical History as per HPI Past Surgical History Cholecystectomy, , Hernia Repair Family History: Diabetes mellitus G8 FATHER Hypertension G8 FATHER Family History not significant Social History denies smoking, alcohol, drug use Allergies: Coded Allergies: NO KNOWN ALLERGIES (Unverified , 09/01/24) Home Meds Active Scripts Sucralfate (CARAFATE) 1 Gm Tab, 1 GM OR TID for 30 Days, #90 TAB Prov:PALLAVI YOUNG RESIDENT 06/13/25 Pantoprazole Sodium Sesquihydr (Protonix) 40 Mg Tab, 40 MG PO DAILY for 30 Days, #30 TAB Prov:PALLAVI YOUNG RESIDENT 06/13/25 Reported Medications Baclofen (Baclofen) 10 Mg Tab, 10 MG PO TID, TAB 06/13/25 Cephalexin Monohydrate (Cephalexin) 500 Mg Cap, 500 MG PO Q6HR, MG 06/13/25 Ferrous Sulfate (Ferosul) 325 Mg Tab, 325 MG PO, TAB 06/13/25 Furosemide (Furosemide) 20 Mg Tab, 20 MG PO DAILY for 30 Days, MG 06/13/25 Cholecalciferol (D2000 Ultra Strength) 2,000 Unit Cap, 2000 UNIT PO DAILY, CAP 01/13/25 Ascorbic Acid (VITAMIN C TABLET) 500 Mg Tb, 500 MG GT DAILY, TAB 01/13/25 Alpha Tocopheryl Acid Succinat (VITAMIN E) 100 Unit Tab, 100 UNIT PO DAILY, TAB 01/13/25 Fish Oil (Fish Oil) 1,000 Mg Cap, 1000 MG PO DAILY, CAP 01/13/25 Hydrocodone-Acetaminophen (Hydrocodone Bitartrate/AC 5-325 mg) 1 Tab Tab, 1 TAB PO PRN, TAB 01/13/25 Acetaminophen (Acetaminophen ER 8 Hour A) 650 Mg Tab, 650 MG PO PRN, TAB 03/22/24 Potassium Chloride (Klor-Con M20) 20 Meq Tab, 20 MEQ PO DAILY, TAB 11/10/23 Current Medications Current Medications Medications (Trade) Dose Ordered Sig/Luis M Route PRN Reason Start Time Stop Time Status Last Admin Sodium Chloride (Saline Lock Ns) 10 ml Q8HR IV 06/15/25 06:00 06/15/25 14:06 Ondansetron HCl (Zofran) 4 mg Q4HP PRN IV NAUSEA / VOMITING 06/15/25 00:30 Pantoprazole Sodium (Protonix) 40 mg BID IV 06/15/25 10:00 06/15/25 09:50 Sucralfate (Carafate Tab) 1 gm QIDACHS PO 06/15/25 07:00 06/15/25 12:50 DC Polyethylene Glycol (Miralax 17GM Powder) 17 gm DAILYPRN PRN PO FOR CONSTIPATION 06/15/25 00:30 Hydromorphone HCl (Dilaudid Injection) 0.25 mg Q4HPRN PRN IV SEVERE PAIN (7-10 PAIN SCALE) 06/15/25 00:30 06/15/25 05:43 Sucralfate (Carafate Susp) 1 gm BID@0600,2200 PO 06/15/25 22:00 Review of Systems patient seen and examined at the bedside reported mild LUQ pain denied N/V currently Vital Signs Vital Signs Date Time Temp Pulse Resp B/P (MAP) Pulse Ox O2 Delivery O2 Flow Rate FiO2 06/15/25 13:00 97.8 93 20 140/48 (78) 93 97.8 Physical Exam Gen - no pallor, no scleral icterus Skin - Patients skin is warm and dry. HEENT - normocephalic, atraumatic, dry mucous membranes. Neck - supple, no lymphadenopathy Pulmonary - B/L equal air entry with vesicular breath sounds cardiovascular - regular S1,S2 heard GI - soft nontender abdomen. Bowel sounds normoactive. Neurological - Patient is alert and oriented x4. No motor or sensory weakness Labs/Diagnostic Data Labs Test 06/15/25 11:00 06/15/25 01:02 06/14/25 16:32 Range/Units Urine Color Light-orange Yellow Urine Clarity Ex.turbid Clear Urine pH 5.0 5.0-9.0 Urine Specific [place] 1.022 1.001-1.035 Urine Protein 1+ H Negative Urine Ketones 1+ H Negative Urine Blood Negative Negative /uL Urine Nitrite Negative Negative Urine Bilirubin Negative Negative Urine Urobilinogen Normal Negative mg/dL Urine Leukocyte Esterase 2+ Negative /uL Urine RBC 3 0 - 4 /hpf Urine Microscopic WBC 98 H 0-5 /HPF Urine Squamous Epithelial Cells Mod <5 /hpf Urine Amorphous Crystals Mod None Seen /hpf Urine Bacteria Few H None Seen /hpf Urine Mucus Few None Seen Urine Glucose Trace Normal mg/dL Urine Opiates Screen Pos NEGATIVE Urine Fentanyl Screen Neg NEGATIVE Urine Barbiturates Screen Neg NEGATIVE Urine Phencyclidine Screen Neg NEGATIVE Urine Amphetamines Screen Neg NEGATIVE Urine Benzodiazepines Screen Neg NEGATIVE Urine Cocaine Screen Neg NEGATIVE Urine Cannabinoids Screen Pos NEGATIVE Prothrombin Time 11.6 9.3-11.8 sec Prothrombin Time INR 1.11 0.9-1.15 Activated Partial Thromboplast Time 26.1 24.5-34.5 SEC Amylase Level 35 30-118 U/L Lipase 25 12-53 U/L Vitamin B12 Level 3021 H 211-911 pg/mL Vitamin D 25-Hydroxy 43.7 30.0-100 ng/mL Thyroid Stimulating Hormone (TSH) 3.26 0.55-4.78 uIU/mL White Blood Count 10.0 4.4-10.8 10^3/uL Red Blood Count 4.89 4.0-5.20 10^6/uL Hemoglobin 13.2 12.2-16.2 g/dL Hematocrit 40.0 36.0-46.0 % Mean Corpuscular Volume 81.8 80.0-100.0 fL Mean Corpuscular Hemoglobin 27.1 L 28.0-32.0 pg Mean Corpuscular Hemoglobin Concent 33.1 32.0-36.0 g/dL Red Cell Distribution Width 19.6 H 11.8-14.3 % Platelet Count 312 140-450 10^3/uL Mean Platelet Volume 7.8 6.9-10.8 fL Neutrophils (%) (Auto) 52.6 37.0-80.0 % Lymphocytes (%) (Auto) 34.9 10.0-50.0 % Monocytes (%) (Auto) 9.0 0.0-12.0 % Eosinophils (%) (Auto) 3.0 0.0-7.0 % Basophils (%) (Auto) 0.5 0.0-2.0 % Neutrophils # (Auto) 5.3 1.6-8.6 10 ^3/uL Lymphocytes # (Auto) 3.5 0.4-5.4 10 ^3/uL Monocytes # (Auto) 0.9 0-1.3 10 ^3/uL Eosinophils # (Auto) 0.3 0-0.8 10 ^3/uL Basophils # (Auto) 0.1 0-0.2 10 ^3/uL Nucleated Red Blood Cells 0.2 % Sodium Level 142 136-145 mmol/L Potassium Level 3.5 3.5-5.1 mmol/L Chloride Level 106 98-107 mmol/L Carbon Dioxide Level 25 20-31 mmol/L Anion Gap 11 5-15 Blood Urea Nitrogen 13 9-23 mg/dL Creatinine 0.44 L 0.550-1.02 mg/dL Glomerular Filtration Rate Calc 107 >90 mL/min BUN/Creatinine Ratio 29.5 H 10.0-20.0 Serum Glucose 102 74-106 mg/dL Calcium Level 8.8 8.7-10.4 mg/dL Total Bilirubin 0.4 0.2-1.0 mg/dL Aspartate Amino Transferase (AST) 53 H 13-40 U/L Alanine Aminotransferase (ALT) 58 H 7-40 U/L Alkaline Phosphatase 91 46-116 U/L Total Protein 7.3 5.7-8.2 g/dL Albumin 3.7 3.2-4.8 g/dL Assessment Assessment Intractable N/V and abdominal pain GERD possible PUD with bleeding Hepatic steatosis Mild transaminitis Plan - protonix - carafate - NPO after midnight - EGD tomorrow - monitor Liver function tests Plan discussed with Dr. Whitehead Plan discussed with: Patient, Other (XIAO Parra) LA GLORIA RESIDENT Jun 15, 2025 16:25
[2025-06-15] MEDS: SUCRALFATE 1 GM/10 ML ORAL SUSP PO SCH (21:50)
--- NOTE | 2025-06-15 22:49 | DVHPNRES ---
Progress Note Date Seen: Jun 15, 2025 Resident Creating Document: AVELINA AVALOS RESIDENT Medical Necessity Reason Pt with a Central, PICC or Fol: No Subjective Review of Systems Maureen Charles is a 65-year-old female with past medical history of osteoarthritis, type 2 diabetes mellitus, essential hypertension, dyslipidemia, who presented to [facility] ED with complaint of diffuse abdominal pain, rated 10/10 in severity, with maximal tenderness in the left upper quadrant. Symptoms have been ongoing for the past 5 days. Patient also reported to have nausea and vomiting associated with heartburn. Patient had history of intermittent black tarry stools in the last 3 months She reports that she was previously admitted to [facility] ([facility]) two days ago for the same complaint and was discharged yesterday. Post discharge she continued to have the abdominal pain. Patient states she is currently awaiting a follow-up appointment with Dr. Whitehead for an endoscopy. Abdominal CT shows no evidence of an acute abdominal/pelvic process. Liver ultrasound showed hepatomegaly and hepatic steatosis. The patient was placed NPO, started on IV antibiotics and IV fluids. Past Medical History:osteoarthritis, type 2 diabetes mellitus, essential hypertension, dyslipidemia Past Surgical History: Cholecystectomy, , Hernia Repair Family History: None Smoke: No ALCOHOL: none Drugs: None Patient seen and examined at bedside. Patient is alert and oriented to time, place person and responding to all questions. Eyes: No Pain, No Vision change, No Conjunctivae inflammation, No Eyelid inflammation, No Other, No Redness ENT: No Ear pain, No Ear discharge, No Nose pain, No Nose discharge, No Nose congestion, No Mouth pain, No Mouth swelling, No Throat pain, No Throat swelling Cardiovascular: No Chest Pain, No Palpitations, No Orthopnea, No Paroxysmal No Dyspnea, No Edema, No Lt Headedness Respiratory: No Cough, No Dry, No Shortness of breath, No SOB with exertion, No Wheezing, No Hemoptysis, No Pleuritic Pain, No Sputum Gastrointestinal: No Nausea, No Vomiting, Abdominal Pain, No Diarrhea, No Constipation, No Melena, No Hematochezia Genitourinary: No Dysuria, No Frequency, No Incontinence, No Hematuria, No Retention Musculoskeletal: No other, No neck pain, No shoulder pain, No arm pain, back pain, No hand pain, No leg pain, No foot pain Skin: No Rash, No Lesions, No Jaundice, No Bruising Gastrointestinal: Vomiting Allergies: Coded Allergies: NO KNOWN ALLERGIES (Unverified , 09/01/24) Objective vital signs Vital Sign Date Time Temp Pulse Resp B/P (MAP) Pulse Ox O2 Delivery O2 Flow Rate FiO2 06/15/25 22:03 96 18 128/77 06/15/25 21:00 98.0 91 98.0 06/15/25 17:55 Room Air* 0 21 21 Total Intake and Output 06/15/25 06/15/25 06/15/25 02:30 10:30 18:30 Intake Total 500 ml Balance 500 ml medications Current Medications Medications Dose Ordered Sig/Luis M Route Start Time Stop Time Status Last Admin Dose Admin Sodium Chloride 10 ml Q8HR IV 06/15/25 06:00 06/15/25 22:04 10 ML Ondansetron HCl 4 mg Q4HP PRN IV 06/15/25 00:30 Pantoprazole Sodium 40 mg BID IV 06/15/25 10:00 06/15/25 21:52 40 MG Polyethylene Glycol 17 gm DAILYPRN PRN PO 06/15/25 00:30 Hydromorphone HCl 0.25 mg Q4HPRN PRN IV 06/15/25 00:30 06/15/25 22:03 0.25 MG Sucralfate 1 gm BID@0600,2200 PO 06/15/25 22:00 06/15/25 21:50 1 GM Examination General Appearance: Cooperative. Well developed. Well nourished. NAD Head Exam: Normal inspection Neck Exam: Normal inspection. Non-tender. Normal alignment Pulmonary/Respiratory: Chest non-tender. Clear bilateral breath sounds, no crackles, no wheezing. Cardiovascular/Chest: Regular rate and rhythm. No murmurs. No JVD. Peripheral Pulses: 2+ Radial (R). 2+ Radial (L). 2+ Pedal (R). 2+ Pedal (L) Abdominal: LUQ abdominal tenderness present, Normal bowel sounds, Soft, No hepatospenomegaly, No masses Ankle Exam: Negative ankle edema Extremities: No clubbing, No cyanosis, Normal pulses, bilateral nonpitting pedal edema Neuro/Mental Status: A&O x4. Coherent. Thoughts/Psych: Normal thought pattern. Appropriate mood and affect. Good judgement and insight Skin Exam: Normal inspection. Normal color. Warm. Dry laboratory and microbiology Laboratory Tests 06/14/25 16:32 Test 06/14/25 16:32 Range/Units Serum Glucose 102 74-106 mg/dL Labs and/or images reviewed: Labs reviewed by me, Image(s) reviewed by me Problem List/Assessment/Plan Problem List/Assessment/Plan #Intractable abdominal pain likely due to peptic ulcer disease, #acute gastroenteritis #Mild transamnitis due to above #Possible PUD with bleeding #Hepatic steatosis -Abdomen/Pelvis CT: No CT evidence of an acute abdominal/pelvic process. -Liver US: Hepatic steatosis and hepatomegaly. -Zofran 4 MG IV q4h -Sucralfate 1 GM PO qid -IV NS -EGD on 06/16/25 -monitor LFTs #Pancreatitis,ruled out Normal Lipase #Type 2 diabetes mellitus,controlled A1c pending Serum glucose normal #History of hypertension Controlled #Dyslipidemia Follow lipid levels Diet: NPO PUD prophylaxis: Protonix 40mg iv Goals of care: Full code, discussed for >16 minutes Plan discussed with Dr. Newell Plan discussed with: Patient Date of Service: Jun 15, 2025 Billing Provider: PAULA NEWELL MD Common Visit Codes: [id number] INP/OBS CARE(HIGH) Date of Service: Jun 15, 2025 Billing Provider: PAULA NEWELL MD Common Visit Codes: [id number] INP/OBS CARE(HIGH) AVELINA AVALOS RESIDENT Jun 15, 2025 22:49
[2025-06-16] VITALS (10 sets, daily range): BP systolic 10–153; BP diastolic 53–94; PULSE 56–111; RESP 17–22; TEMP 97.5–98.6; O2SAT 90–99
[2025-06-16 06:02] LABS: Nucleated Red Blood Cells % 0.2 %
[2025-06-16 06:05] LABS: Hematocrit 41.2 % (36.0-46.0); Hemoglobin 13.3 g/dL (12.2-16.2); Mean Corpuscular Hemoglobin 26.8 pg (28.0-32.0); Mean Corpuscular Volume 83.0 fL (80.0-100.0)
[2025-06-16 06:14] LABS: Albumin 3.6 g/dL (3.2-4.8); Alkaline Phosphatase 90 U/L (46-116); Anion Gap 11 (5-15); BUN/Creatinine Ratio 22.4 (10.0-20.0); Bilirubin, Total 0.4 mg/dL (0.2-1.0); Blood Urea Nitrogen 11 mg/dL (9-23); Calcium 8.9 mg/dL (8.7-10.4); Carbon Dioxide 28 mmol/L (20-31); Chloride 104 mmol/L (98-107); Sodium 143 mmol/L (136-145); Total Protein 7.1 g/dL (5.7-8.2)
[2025-06-16 06:19] LABS: Alanine Aminotransferase 45 U/L (7-40); Glucose 123 mg/dL (74-106); Potassium 3.2 mmol/L (3.5-5.1)
[2025-06-16] MEDS: POTASSIUM CHL 20MEQ/100ML 100 ML IV ONE (08:30)
--- NOTE | 2025-06-16 08:51 | DVH ---
INDICATION: Pt.scheduled for egd today TECHNIQUE: Frontal view of the chest. COMPARISON: XY CHEST TWO VIEWS ROUTINE on DOS: 01/13/25, XY CHEST TWO VIEWS ROUTINE on DOS: 03/10/24, X Y CHEST XRAY 1 VIEW on DOS: 11/15/23, XY CHEST PORTABLE on DOS: 06/21/23, XY CHEST TWO VIEWS ROUTINE o n DOS: 12/03/22 FINDINGS: . The heart and mediastinal contours are grossly unremarkable. There is no evidence of pleural disea se. The lungs are clear. The bony structures of the chest are intact without fracture. IMPRESSION: 1. No evidence of acute disease.
[2025-06-16] MEDS ORDERED: SODIUM CHLORIDE LOCK 10 ML ONE (09:33)
[2025-06-16] MEDS ORDERED: fentaNYL CITRATE 100 MCG/2 ML VL ONE (09:34)
[2025-06-16] MEDS ORDERED: diphenhydrAMINE HCL 50 MG/1 ML VL ONE (09:34)
[2025-06-16] MEDS ORDERED: MIDAZOLAM HCL 5 MG/ML-1ML VIAL ONE (09:34)
[2025-06-16] MEDS ORDERED: LIDOCAINE VISCOUS 2% 15ML UD ONE (09:34)
--- NOTE | 2025-06-16 11:46 | DVH ---
CLINICAL HISTORY: bilateral leg swelling TECHNIQUE: Color and duplex doppler imagine of the bilateral lower extremity veins was performed. Ves reina compression and augmentation if possible was also performed. COMPARISON: US BILAT LOWER DVT on DOS: 06/12/25, US BILAT LOWER DVT on DOS: 06/30/24, LT LOWER DVT on DOS: 02/09/22, LLDVT on DOS: 02/09/22, BLDVT on DOS: 12/17/21 FINDINGS: Right Lower Extremity: Right common femoral vein: Normal compressibility and flow. Right superficial femoral vein: Normal compressibility and flow. Right popliteal vein: Normal compressibility and flow. Left Lower Extremity: Left common femoral vein: Normal compressibility and flow. Left superficial femoral vein: Normal compressibility and flow. Left popliteal vein: Normal compressibility and flow. IMPRESSION: NO SONOGRAPHIC EVIDENCE FOR DEEP VENOUS THROMBOSIS IN THE BILATERAL LOWER EXTREMITY VEINS.
[2025-06-16] MEDS ORDERED: ONDANSETRON HCL 4 MG/2 ML VIAL ONE (13:14)
[2025-06-16] MEDS ORDERED: LIDOCAINE 2% (LOCAL ANESTH.) PF 5ml SDV ONE (13:14)
[2025-06-16] MEDS ORDERED: METOCLOPRAMIDE HCL 5MG/ml INJ 2ml VIAL ONE (13:15)
[2025-06-16] MEDS ORDERED: PROPOFOL 10 MG/ML 20 ML IV ONE (13:15)
--- NOTE | 2025-06-16 13:32 | DVHOP2 ---
Operative Report DATE OF OPERATION: 06/16/25 PROCEDURE: Upper Endoscopy with biopsy. PREOPERATIVE INDICATION: The patient is a 65 -year-old female undergoing endoscopy for melena and left upper quadrant pain POSTOPERATIVE DIAGNOSES: 1. Patient had moderate duodenitis with multiple coalescing duodenal superficial ulcers 2. Mild to moderate gastritis and gastropathy otherwise normal examination up to the 2nd and 3rd part of the duodenal 3. She had a 0.5-1 cm sliding-type hiatal hernia PROCEDURE PERFORMED BY: Alix Whitehead GI NURSE: Lindsey SCOPE: Olympus videoendoscope. ASA CLASS: 3. PREOPERATIVE MEDICATIONS: Mac sedation, Aurelio Santana PROCEDURE IN DETAIL: After obtaining an informed consent, the patient was placed on left lateral decubitus position. The patient was then sedated with the above medications. A bite block was placed between her teeth. The endoscope was then passed through the oropharynx, into the esophagus, and through the stomach and pylorus up to the second and third part of the duodenum. The endoscope was then withdrawn. The 2nd and 3rd part of the duodenum were normal. The duodenal bulb and postbulbar area showed moderate duodenitis There were multiple superficial coalescing duodenal ulcers but no visible vessel no active bleeding, Cameron classification C The pre-pyloric area and antrum showed [id number] gastritis and gastropathy. Gastric biopsies were obtained. On retroflexion the fundus and cardia were normal. The endoscope was then withdrawn into the distal esophagus. Patient had a 0.5-1 cm sliding-type hiatal hernia. The remaining distal and proximal esophagus was normal The patient tolerated the procedure well without difficulty. COMPLICATIONS : None SPECIMENS: Duodenal biopsies Gastric biopsies DISPOSITION: Transfer back to the floor Stable PLAN: 1. Await for biopsy result 2. Will place pt on Protonix 40 mg bid IV 3. Carafate 1 g p.o. twice a day 4. Full liquid diet advance as tolerated 5. DC aspirin NSAIDs smoking alcohol 6. Outpatient follow up with me in 4-6 weeks to discuss elective colonoscopy ALIX WHITEHEAD MD Jun 16, 2025 13:32
[2025-06-16] MEDS ORDERED: ALBUTEROL SULFATE 90 MCG MDI IN ONE (13:35)
[2025-06-16] MEDS: ALBUTEROL SULF 2.5 MG/0.5ML(0.5%) NEB SOLN NEB ONE (13:58)
--- NOTE | 2025-06-16 18:22 | DVHPNRES ---
Progress Note Date Seen: Jun 16, 2025 Resident Creating Document: AVELINA AVALOS RESIDENT Medical Necessity Reason Pt with a Central, PICC or Fol: No Subjective Review of Systems Maureen Charles is a 65-year-old female with past medical history of osteoarthritis, type 2 diabetes mellitus, essential hypertension, dyslipidemia, who presented to [facility] ED with complaint of diffuse abdominal pain, rated 10/10 in severity, with maximal tenderness in the left upper quadrant. Symptoms have been ongoing for the past 5 days. Patient also reported to have nausea and vomiting associated with heartburn. Patient had history of intermittent black tarry stools in the last 3 months She reports that she was previously admitted to [facility] ([facility]) two days ago for the same complaint and was discharged yesterday. Post discharge she continued to have the abdominal pain. Patient states she is currently awaiting a follow-up appointment with Dr. Whitehead for an endoscopy. Abdominal CT shows no evidence of an acute abdominal/pelvic process. Liver ultrasound showed hepatomegaly and hepatic steatosis. The patient was placed NPO, started on IV antibiotics and IV fluids. Past Medical History:osteoarthritis, type 2 diabetes mellitus, essential hypertension, dyslipidemia Past Surgical History: Cholecystectomy, , Hernia Repair Family History: None Smoke: No ALCOHOL: none Drugs: None Patient seen and examined at bedside. Patient is alert and oriented to time, place person and responding to all questions. Eyes: No Pain, No Vision change, No Conjunctivae inflammation, No Eyelid inflammation, No Other, No Redness ENT: No Ear pain, No Ear discharge, No Nose pain, No Nose discharge, No Nose congestion, No Mouth pain, No Mouth swelling, No Throat pain, No Throat swelling Cardiovascular: No Chest Pain, No Palpitations, No Orthopnea, No Paroxysmal No Dyspnea, No Edema, No Lt Headedness Respiratory: No Cough, No Dry, No Shortness of breath, No SOB with exertion, No Wheezing, No Hemoptysis, No Pleuritic Pain, No Sputum Gastrointestinal: No Nausea, No Vomiting, Abdominal Pain, No Diarrhea, No Constipation, No Melena, No Hematochezia Genitourinary: No Dysuria, No Frequency, No Incontinence, No Hematuria, No Retention Musculoskeletal: No other, No neck pain, No shoulder pain, No arm pain, back pain, No hand pain, No leg pain, No foot pain Skin: No Rash, No Lesions, No Jaundice, No Bruising Gastrointestinal: Vomiting Allergies: Coded Allergies: NO KNOWN ALLERGIES (Unverified , 09/01/24) 06/16/25- The patient was seen at bedside today. All labs and charts were reviewed. The patient underwent EGD today which showed moderate duodenitis with multiple coalescing duodenal superficial ulcers, [id number] gastritis and gastropathy and 0.5-1 cm sliding-type hiatal herrrnia. The patient was put on full liquid diet. The patient complained of pain in both legs and had bilateral leg swelling. Extremity venous study showed no DVT. The patient will be slowly advanced to regular diet and possibly discharge home tomorrow and follow up outpatient with GI Objective vital signs Vital Sign Date Time Temp Pulse Resp B/P (MAP) Pulse Ox O2 Delivery O2 Flow Rate FiO2 06/16/25 16:48 98.6 103 20 10/70 (50) 91 98.6 06/16/25 13:53 Nasal Cannula* 3 32 Total Intake and Output 06/15/25 06/15/25 06/16/25 15:00 23:00 07:00 Intake Total 500 ml 240 ml Balance 500 ml 240 ml medications Current Medications Medications Dose Ordered Sig/Luis M Route Start Time Stop Time Status Last Admin Dose Admin Sodium Chloride 10 ml Q8HR IV 06/15/25 06:00 06/16/25 17:37 10 ML Ondansetron HCl 4 mg Q4HP PRN IV 06/15/25 00:30 Pantoprazole Sodium 40 mg BID IV 06/15/25 10:00 06/15/25 21:52 40 MG Polyethylene Glycol 17 gm DAILYPRN PRN PO 06/15/25 00:30 Hydromorphone HCl 0.25 mg Q4HPRN PRN IV 06/15/25 00:30 06/16/25 10:41 0.25 MG Sucralfate 1 gm BID@0600,2200 PO 06/15/25 22:00 06/15/25 21:50 1 GM Sucralfate 1 gm BID@0600,2200 PO 06/16/25 22:00 Examination General Appearance: Cooperative. Well developed. Well nourished. NAD Head Exam: Normal inspection Neck Exam: Normal inspection. Non-tender. Normal alignment Pulmonary/Respiratory: Chest non-tender. Clear bilateral breath sounds, no crackles, no wheezing. Cardiovascular/Chest: Regular rate and rhythm. No murmurs. No JVD. Peripheral Pulses: 2+ Radial (R). 2+ Radial (L). 2+ Pedal (R). 2+ Pedal (L) Abdominal: LUQ abdominal tenderness present, Normal bowel sounds, Soft, No hepatospenomegaly, No masses Extremities: No clubbing, No cyanosis, Normal pulses, mild bilateral pedal edema Neuro/Mental Status: A&O x4. Coherent. Thoughts/Psych: Normal thought pattern. Appropriate mood and affect. Good judgement and insight Skin Exam: Normal inspection. Normal color. Warm. Dry laboratory and microbiology Laboratory Tests 06/16/25 05:10 Test 06/16/25 05:10 Range/Units Serum Glucose 123 H 74-106 mg/dL Microbiology Date/Time Source Procedure Growth Status 06/15/25 09:30 Nose MRSA Screen - Final Complete Labs and/or images reviewed: Labs reviewed by me, Image(s) reviewed by me Problem List/Assessment/Plan Problem List/Assessment/Plan # Intractable abdominal pain likely due to peptic ulcer disease # Acute gastroenteritis # Mild transamnitis due to above # Possible PUD with bleeding # Hepatic steatosis -Abdomen/Pelvis CT: No CT evidence of an acute abdominal/pelvic process. -Liver US: Hepatic steatosis and hepatomegaly. -Zofran 4 MG IV q4h -Sucralfate 1 GM PO qid -IV NS -EGD on 06/16/25 showed moderate duodenitis with multiple coalescing duodenal superficial ulcers Mild to moderate gastritis and gastropathy otherwise normal examination up to the 2nd and 3rd part of the duodeum She had a 0.5-1 cm sliding-type hiatal hernia -monitor LFTs #Pancreatitis,ruled out Normal Lipase #Type 2 diabetes mellitus,controlled A1c pending Serum glucose normal #History of hypertension Controlled #Dyslipidemia Follow lipid levels Diet: Full liquids PUD prophylaxis: Protonix 40mg iv Goals of care: Full code, discussed for >16 minutes Plan discussed with Dr Burgos Plan discussed with: Patient My Orders My Orders Orders - AVELINA AVALOS RESIDENT Procedure Category Date Status Time Chest Portable XY 06/16/25 Resulted 02:29 Bilat Lower Dvt US 06/16/25 Resulted 09:40 Date of Service: Jun 16, 2025 Billing Provider: LEXIS BURGOS MD Common Visit Codes: [id number] INP/OBS CARE(HIGH) Date of Service: Jun 16, 2025 Billing Provider: LEXIS BURGOS MD Common Visit Codes: [id number] INP/OBS CARE(HIGH) AVELINA VAALOS RESIDENT Jun 16, 2025 18:22 LEXIS BURGOS MD Jun 16, 2025 22:09
[2025-06-16] MEDS: POTASSIUM CHL 20 Meq TABLET PO ONE (18:47)
[2025-06-16] MEDS: SUCRALFATE 1 GM/10 ML ORAL SUSP PO SCH (22:00)
[2025-06-17] VITALS (7 sets, daily range): BP systolic 111–128; BP diastolic 57–77; PULSE 71–121; RESP 16–59; TEMP 98–98.6; O2SAT 90–97
[2025-06-17 08:19] LABS: Anion Gap 12 (5-15); Carbon Dioxide 27 mmol/L (20-31); Chloride 106 mmol/L (98-107); Sodium 145 mmol/L (136-145)
[2025-06-17 08:26] LABS: BUN/Creatinine Ratio 16.7 (10.0-20.0)
[2025-06-17 08:29] LABS: Blood Urea Nitrogen 8 mg/dL (9-23); Calcium 8.5 mg/dL (8.7-10.4); Glucose 127 mg/dL (74-106); Potassium 3.4 mmol/L (3.5-5.1)
[2025-06-17] MEDS ORDERED: SUCR1SUS5 PO (10:36)
[2025-06-17] MEDS ORDERED: PANT40TA2 PO (10:36)
--- NOTE | 2025-06-17 14:16 | DVHDSRES ---
Discharge Summary Date of Admission Resident Creating Document: AVELINA AVALOS RESIDENT Jun 15, 2025 at 00:24 Date of Discharge: Jun 17, 2025 Admitting Diagnosis Intractable abdominal pain likely due to peptic ulcer disease Labs/Diagnostic Data: Laboratory Results Test 06/17/25 06:41 06/16/25 05:10 06/15/25 11:00 06/15/25 01:02 Sodium Level 145 mmol/L (136-145) Potassium Level 3.4 mmol/L (3.5-5.1) Chloride Level 106 mmol/L (98-107) Carbon Dioxide Level 27 mmol/L (20-31) Anion Gap 12 (5-15) Blood Urea Nitrogen 8 mg/dL (9-23) Creatinine 0.48 mg/dL (0.550-1.02) Glomerular Filtration Rate Calc 105 mL/min (>90) BUN/Creatinine Ratio 16.7 (10.0-20.0) Serum Glucose 127 mg/dL (74-106) Calcium Level 8.5 mg/dL (8.7-10.4) White Blood Count 9.3 10^3/uL (4.4-10.8) Red Blood Count 4.97 10^6/uL (4.0-5.20) Hemoglobin 13.3 g/dL (12.2-16.2) Hematocrit 41.2 % (36.0-46.0) Mean Corpuscular Volume 83.0 fL (80.0-100.0) Mean Corpuscular Hemoglobin 26.8 pg (28.0-32.0) Mean Corpuscular Hemoglobin Concent 32.4 g/dL (32.0-36.0) Red Cell Distribution Width 19.4 % (11.8-14.3) Platelet Count 303 10^3/uL (140-450) Mean Platelet Volume 7.7 fL (6.9-10.8) Neutrophils (%) (Auto) 57.5 % (37.0-80.0) Lymphocytes (%) (Auto) 30.0 % (10.0-50.0) Monocytes (%) (Auto) 9.1 % (0.0-12.0) Eosinophils (%) (Auto) 2.8 % (0.0-7.0) Basophils (%) (Auto) 0.6 % (0.0-2.0) Neutrophils # (Auto) 5.4 10 ^3/uL (1.6-8.6) Lymphocytes # (Auto) 2.8 10 ^3/uL (0.4-5.4) Monocytes # (Auto) 0.9 10 ^3/uL (0-1.3) Eosinophils # (Auto) 0.3 10 ^3/uL (0-0.8) Basophils # (Auto) 0.1 10 ^3/uL (0-0.2) Nucleated Red Blood Cells 0.2 % Total Bilirubin 0.4 mg/dL (0.2-1.0) Aspartate Amino Transferase (AST) 49 U/L (13-40) Alanine Aminotransferase (ALT) 45 U/L (7-40) Alkaline Phosphatase 90 U/L (46-116) Total Protein 7.1 g/dL (5.7-8.2) Albumin 3.6 g/dL (3.2-4.8) Urine Color Light-orange (Yellow) Urine Clarity Ex.turbid (Clear) Urine pH 5.0 (5.0-9.0) Urine Specific [place] 1.022 (1.001-1.035) Urine Protein 1+ (Negative) Urine Ketones 1+ (Negative) Urine Blood Negative /uL (Negative) Urine Nitrite Negative (Negative) Urine Bilirubin Negative (Negative) Urine Urobilinogen Normal mg/dL (Negative) Urine Leukocyte Esterase 2+ /uL (Negative) Urine RBC 3 /hpf (0 - 4) Urine Microscopic WBC 98 /HPF (0-5) Urine Squamous Epithelial Cells Mod /hpf (<5) Urine Amorphous Crystals Mod /hpf (None Seen) Urine Bacteria Few /hpf (None Seen) Urine Mucus Few (None Seen) Urine Glucose Trace mg/dL (Normal) Urine Opiates Screen Pos (NEGATIVE) Urine Fentanyl Screen Neg (NEGATIVE) Urine Barbiturates Screen Neg (NEGATIVE) Urine Phencyclidine Screen Neg (NEGATIVE) Urine Amphetamines Screen Neg (NEGATIVE) Urine Benzodiazepines Screen Neg (NEGATIVE) Urine Cocaine Screen Neg (NEGATIVE) Urine Cannabinoids Screen Pos (NEGATIVE) Prothrombin Time 11.6 sec (9.3-11.8) Prothrombin Time INR 1.11 (0.9-1.15) Activated Partial Thromboplast Time 26.1 SEC (24.5-34.5) Amylase Level 35 U/L (30-118) Lipase 25 U/L (12-53) Vitamin B12 Level 3021 pg/mL (211-911) Vitamin D 25-Hydroxy 43.7 ng/mL (30.0-100) Thyroid Stimulating Hormone (TSH) 3.26 uIU/mL (0.55-4.78) Other Laboratory Tests 06/17/25 06:41 06/16/25 05:10 Brief Hx & Hospital Course: Maureen Charles is a 65-year-old female with past medical history of osteoarthritis, type 2 diabetes mellitus, essential hypertension, dyslipidemia, who presented to [facility] ED with the complaint of diffuse abdominal pain, rated 10/10 in severity, with maximal tenderness in the left upper quadrant since 5 days along with nausea and vomiting. Patient had history of intermittent black tarry stools in the last 3 months. She reported that she was previously admitted to [facility] ([facility]) two days ago for the same complaint and post discharge she continued to have the abdominal pain. Abdominal CT showed no evidence of an acute abdominal/pelvic process. Liver ultrasound showed hepatomegaly and hepatic steatosis. EGD was done which showed moderate duodenitis with multiple coalescing duodenal superficial ulcers, [id number] gastritis and gastropathy and 0.5-1 cm sliding-type hiatal hernia. The patient complained of pain in both legs and had bilateral leg swelling. Extremity venous study showed no DVT. The abdominal pain gradually resolved and patient was discharged home in a stable condition on complete 1 g p.o. b.i.d. and Protonix 40 mg p.o. b.i.d. asked to follow up in DC clinic and with GI for biopsy results. Past Medical History:osteoarthritis, type 2 diabetes mellitus, essential hypertension, dyslipidemia Past Surgical History: Cholecystectomy, , Hernia Repair Family History: None Smoke: No ALCOHOL: none Drugs: None General Appearance: Cooperative. Well developed. Well nourished. NAD Head Exam: Normal inspection Neck Exam: Normal inspection. Non-tender. Normal alignment Pulmonary/Respiratory: Chest non-tender. Clear bilateral breath sounds, no crackles, no wheezing. Cardiovascular/Chest: Regular rate and rhythm. No murmurs. No JVD. Peripheral Pulses: 2+ Radial (R). 2+ Radial (L). 2+ Pedal (R). 2+ Pedal (L) Abdominal: no abdominal tenderness, Normal bowel sounds, Soft, No hepatospenomegaly, No masses Extremities: No clubbing, No cyanosis, Normal pulses, mild bilateral pedal edema Neuro/Mental Status: A&O x4. Coherent. Thoughts/Psych: Normal thought pattern. Appropriate mood and affect. Good judgement and insight Skin Exam: Normal inspection. Normal color. Warm. Dry Operations or Procedures 1.PROCEDURE(s): ABPL - CT AB PEL WO CON-NO ORAL OR IV REASON: pain ORDER NUMBER(s): [id number], ACCESSION NUMBER(s): [id number] EXAM: CT CT AB PEL WO CON-NO ORAL OR IV INDICATION: pain TECHNIQUE: Volumetric multidetector CT images of the abdomen and pelvis were obtained without contrast. All CT scans at this facility use dose modulation, iterative reconstruction, and/or weight based dosing when appropriate to reduce radiation dose to as low as reasonably achievable. COMPARISON: US PELVIC on DOS: 06/12/25 FINDINGS: [LOWER CHEST]: The partially visualized lung bases are clear without a pleural effusion. The cardiac size is normal without pericardial effusion. coronary artery calcifications. [LIVER]: Normal hepatic size without suspicious focal lesion. [GALLBLADDER AND BILIARY TREE]: Surgically absent. [SPLEEN]: Unremarkable. [PANCREAS]: Unremarkable. [ADRENAL GLANDS]: Unremarkable [KIDNEYS]: No hydronephrosis. No nephroureterolithiasis. [BLADDER]: Unremarkable for the degree distention. [REPRODUCTIVE ORGANS]: Unremarkable. [BOWEL/MESENTERY]: Stomach is normal. No CT evidence of bowel obstruction. [ASCITES]: Absent [LYMPHADENOPATHY]: No pathologically enlarged lymph nodes by CT size criteria [VASCULATURE]: No aneurysmal dilatation. [ABDOMINAL WALL]: Unremarkable. [MUSCULOSKELETAL]: No acute fracture or aggressive focal osseous lesion. IMPRESSION: No CT evidence of an acute abdominal/pelvic process. 2.PROCEDURE(s): LIVUS - LIVER REASON: abdominal pain, transaminas ORDER NUMBER(s): [id number], ACCESSION NUMBER(s): [id number] INDICATION: abdominal pain, transaminas TECHNIQUE: Multiple real-time sonographic images were obtained of the right upper quadrant. COMPARISON: US PELVIC on DOS: 06/12/25, US ABDOMEN LIMITED on DOS: 03/14/25, US PELVIC on DOS: 10/07/24 FINDINGS: The liver demonstrates diffusely increased echotexture without focal mass lesions. The liver measures 20.3 cm. Normal hepatopetal portal venous flow identified. No evidence of pleural effusion or abdominal ascites. There is no intrahepatic or extrahepatic ductal dilatation. The common duct measures 0.4 cm. The gallbladder is surgically absent. The right kidney measures 11.0 cm. The right kidney is normal in contour, size, and shape. The echogenicity is normal. There is no hydronephrosis. The pancreas is not well visualized due to overlying bowel gas. IMPRESSION: Hepatic steatosis and hepatomegaly. 3.PROCEDURE(s): CXRP - CHEST PORTABLE REASON: Pt.scheduled for egd today ORDER NUMBER(s): [id number], ACCESSION NUMBER(s): [id number] INDICATION: Pt.scheduled for egd today TECHNIQUE: Frontal view of the chest. COMPARISON: XY CHEST TWO VIEWS ROUTINE on DOS: 01/13/25, XY CHEST TWO VIEWS ROUTINE on DOS: 03/10/24, XY CHEST XRAY 1 VIEW on DOS: 11/15/23, XY CHEST PORTABLE on DOS: 06/21/23, XY CHEST TWO VIEWS ROUTINE on DOS: 12/03/22 FINDINGS: . The heart and mediastinal contours are grossly unremarkable. There is no evidence of pleural disease. The lungs are clear. The bony structures of the chest are intact without fracture. IMPRESSION: No evidence of acute disease. 4.PROCEDURE(s): BLDVT - BiLat Lower DVT REASON: bilateral leg swelling ORDER NUMBER(s): [id number], ACCESSION NUMBER(s): [id number] CLINICAL HISTORY: bilateral leg swelling TECHNIQUE: Color and duplex doppler imagine of the bilateral lower extremity veins was performed. Vessel compression and augmentation if possible was also performed. COMPARISON: US BILAT LOWER DVT on DOS: 06/12/25, US BILAT LOWER DVT on DOS: 06/30/24, LT LOWER DVT on DOS: 02/09/22, LLDVT on DOS: 02/09/22, BLDVT on DOS: 12/17/21 FINDINGS: Right Lower Extremity: Right common femoral vein: Normal compressibility and flow. Right superficial femoral vein: Normal compressibility and flow. Right popliteal vein: Normal compressibility and flow. Left Lower Extremity: Left common femoral vein: Normal compressibility and flow. Left superficial femoral vein: Normal compressibility and flow. Left popliteal vein: Normal compressibility and flow. IMPRESSION: NO SONOGRAPHIC EVIDENCE FOR DEEP VENOUS THROMBOSIS IN THE BILATERAL LOWER EXTREMITY VEINS. 5.DATE OF OPERATION: 06/16/25 PROCEDURE: Upper Endoscopy with biopsy. PREOPERATIVE INDICATION: The patient is a 65 -year-old female undergoing endoscopy for melena and left upper quadrant pain POSTOPERATIVE DIAGNOSES: 1. Patient had moderate duodenitis with multiple coalescing duodenal superficial ulcers 2. Mild to moderate gastritis and gastropathy otherwise normal examination up to the 2nd and 3rd part of the duodenal 3. She had a 0.5-1 cm sliding-type hiatal hernia Condition at Discharge: Fair Final Diagnosis/Problems List Moderate duodenitis with duodenal ulcers Mild to moderate gastritis Intractable abdominal pain likely due to peptic ulcer disease,likely due to above Hepatoc steatosis Pancreatitis, ruled out Type 2 diabetes mellitus, controlled Hypertension,controlled Dyslipidemia Discharge Disposition: Home Discharge Instruct/Medications Diet: Cardiac 2g Na,low cholest Activity: No Restrictions, As Tolerated Follow Up/Referral: follow up in dc clinic in 1 week follow up with PCP follow up with GI for biopsy results and colonoscopy Medications: protonix 40mg po bid carafate 1gm po bid Scheduled Alpha Tocopheryl Acid Succinat (Vitamin E), 100 UNIT PO DAILY, (Reported) Ascorbic Acid (Vitamin C Tablet), 500 MG GT DAILY, (Reported) Cholecalciferol (D2000 Ultra Strength), 2,000 UNIT PO DAILY, (Reported) Fish Oil (Fish Oil), 1,000 MG PO DAILY, (Reported) Furosemide (Furosemide), 20 MG PO DAILY, (Reported) Pantoprazole Sodium Sesquihydr (Protonix), 40 MG PO BID Sucralfate (Carafate), 1 GM PO BID Miscellaneous Medications Ferrous Sulfate (Ferosul), 325 MG PO, (Reported) Discontinued Medications Acetaminophen (Acetaminophen ER 8 Hour A), 650 MG PO PRN, (Reported) Baclofen (Baclofen), 10 MG PO TID, (Reported) Cephalexin Monohydrate (Cephalexin), 500 MG PO Q6HR, (Reported) Hydrocodone-Acetaminophen (Hydrocodone Bitartrate/AC 5-325 mg), 1 TAB PO PRN, (Reported) Pantoprazole Sodium Sesquihydr (Protonix), 40 MG PO DAILY Potassium Chloride (Klor-Con M20), 20 MEQ PO DAILY, (Reported) Sucralfate (Carafate), 1 GM OR TID Discharge Statement: "Patient was advised to return to the ER or call 911 if any headaches, dizziness, shortness of breath, chest pain, abdominal pain, bleeding, fevers, or worsening of medical condition. Patient was counseled about treatment plan, medications, possible side effects, patientverbalized understanding. All questions were answered to the best of my ability. This discharge took greater then 30 minutes in planning, reviewing documentation, counseling the patient, and discussing with other team members." ASSESSMENT ASSESSMENT Assessment duodenal ulcer gastritis Date of Service: Jun 17, 2025 Billing Provider: LEXIS BURGOS MD Common Visit Codes: [id number] DISCH DAY >30min AVELINA AVALOS RESIDENT Jun 17, 2025 14:16 LEXIS BURGOS MD Jun 17, 2025 22:51
--- NOTE | 2025-06-17 23:27 | DVHPN2 ---
Progress Note - Dictate Date Seen: Jun 17, 2025 (Late entry Time of visit 10:00 a.m.) Medical Necessity Reason Pt with a Central, PICC or Fol: No Subjective No new complaints, patient out of bed to chair She is tolerating a diet and denies any nausea vomiting Abdominal pain has improved EGD findings reviewed with the patient moderate gastroduodenitis with duodenal ulcers vital signs Vital Sign Date Time Temp Pulse Resp B/P (MAP) Pulse Ox O2 Delivery O2 Flow Rate FiO2 06/17/25 13:20 98.0 90 19 94 06/17/25 13:00 119/66 (83) 06/17/25 10:30 Room Air 0.0 06/17/25 10:30 21 Total Intake and Output 06/16/25 06/16/25 06/17/25 15:00 23:00 07:00 Intake Total 100 ml 480 ml 800 ml Balance 100 ml 480 ml 800 ml objective Gen - no pallor, no scleral icterus Skin - Patients skin is warm and dry. HEENT - normocephalic, atraumatic, dry mucous membranes. Neck - supple, no lymphadenopathy Pulmonary - B/L equal air entry with vesicular breath sounds cardiovascular - regular S1,S2 heard GI - soft nontender abdomen. Bowel sounds normoactive. Neurological - Patient is alert and oriented x4. No motor or sensory weakness laboratory and microbiology Laboratory Tests 06/17/25 06:41 06/16/25 05:10 Test 06/17/25 06:41 Range/Units Serum Glucose 127 H 74-106 mg/dL Problems(with codes): (1) Intractable abdominal pain (2) Upper GI bleed (3) Peptic ulcer disease (4) Constipation by delayed colonic transit Prognosis Plan Discharge on planning is in progress Patient was advised to maintain herself on Protonix 40 mg p.o. twice a day Carafate 1 g p.o. twice a day Avoid aspirin NSAIDs smoking alcohol Outpatient follow up with me in 4-6 weeks Discuss elective colonoscopy if not recently done Dietary Evaluation Review Recommendations by RD: Dietary education by RD Comments: 1) Advance to 45g CCHO cardiac diet when medically feasible 2) Encourage optimal PO intake 3) Refer to outpatient RD/CD[facility] for weight management 4) Follow-up with gastroenterology and cardiology 5) Continue to monitor I&O, labs, and skin integrity Expected Outcomes/Goals: 1) appetite and labs to improve 2) diet to advance 3) gradual wt loss 4) f/u in 3-5 days Plan discussed with: Patient ALIX MCWILLIAMS MD Jun 17, 2025 23:27
== END 2025-06-17 14:17 | disposition home or self-care (01) | DRG 384 ==
LOC: ER 15:46 → EDBD 15:46 → EDUNIT# 15:46 → OVERFLOW 06-15 00:24 → EAST 06-15 16:05
PROVIDERS: ADMIT Internal Medicine; ATTEND Internal Medicine
PROC: 0DB68ZX Excision of Stomach, Via Natural or Artificial Opening Endoscopic, Diagnostic (ICD-10-PCS; 2025-06-16)
PROC: 0DB98ZX Excision of Duodenum, Via Natural or Artificial Opening Endoscopic, Diagnostic (ICD-10-PCS; principal; 2025-06-16 13:10)
DX: K26.9 Duodenal ulcer, unspecified as acute or chronic, without hemorrhage or perforation (principal); K29.70 Gastritis, unspecified, without bleeding; K29.90 Gastroduodenitis, unspecified, without bleeding; K52.9 Noninfective gastroenteritis and colitis, unspecified; E11.9 Type 2 diabetes mellitus without complications; K21.9 Gastro-esophageal reflux disease without esophagitis; K76.0 Fatty (change of) liver, not elsewhere classified; K29.80 Duodenitis without bleeding; K44.9 Diaphragmatic hernia without obstruction or gangrene; R16.0 Hepatomegaly, not elsewhere classified; I11.0 Hypertensive heart disease with heart failure; I50.9 Heart failure, unspecified; G89.29 Other chronic pain; Z83.3 Family history of diabetes mellitus; E78.5 Hyperlipidemia, unspecified; Z90.49 Acquired absence of other specified parts of digestive tract; Z79.84 Long term (current) use of oral hypoglycemic drugs; Z82.49 Family history of ischemic heart disease and other diseases of the circulatory system; Z79.899 Other long term (current) drug therapy
CPT/HCPCS: 36415; 43239; 71045; 74176; 76705; 80048; 80053; 80307; 81001; 82150; 82306; 82607; 83690; 84443; 85025; 85610; 85730; 86850; 86900; 86901; 87081; 93970; 94640; G0378; J1100; J2003; J2250; J2405; J2470; J2704; J3480

== ENCOUNTER 2025-06-22 15:52 | Outpatient (CLI) | payer MEDICAID, OTHER ==
[~2025-06-22 15:52] MED LIST changes: -ACET-1908 PO; -BACL10TA PO; -BACL20TA PO; -CEPH500C PO; -CYCL-837 PO; -HYDR-4902 PO; -MUPI2CRE17 EX; -POTA-220 PO; +SUCR1SUS5 PO; -SUCR1TAB31 OR; -TIRZ10IN SC
[2025-06-22 16:29] LABS: Hematocrit 44.5 % (36.0-46.0); Hemoglobin 14.2 g/dL (12.2-16.2); Mean Corpuscular Hemoglobin 26.4 pg (28.0-32.0); Mean Corpuscular Volume 82.7 fL (80.0-100.0); Nucleated Red Blood Cells % 0.1 %
[2025-06-22 16:49] LABS: Alanine Aminotransferase 30 U/L (7-40); Albumin 3.7 g/dL (3.2-4.8); Anion Gap 13 (5-15); BUN/Creatinine Ratio 15.8 (10.0-20.0); Bilirubin, Total 0.5 mg/dL (0.2-1.0); Blood Urea Nitrogen 9 mg/dL (9-23); Calcium 8.8 mg/dL (8.7-10.4); Carbon Dioxide 26 mmol/L (20-31); Chloride 103 mmol/L (98-107); Glucose 101 mg/dL (74-106); Potassium 3.6 mmol/L (3.5-5.1); Sodium 142 mmol/L (136-145); Total Protein 7.7 g/dL (5.7-8.2)
[2025-06-22 16:51] LABS: Alkaline Phosphatase 123 U/L (46-116)
== END 2025-06-22 17:00 | disposition home or self-care (01) ==
LOC: LAB 15:52
PROVIDERS: ATTEND Internal Medicine
DX: D72.829 Elevated white blood cell count, unspecified (principal); R10.84 Generalized abdominal pain
CPT/HCPCS: 36415; 80053; 85025

== ENCOUNTER 2025-06-22 16:31 | Outpatient (CLI) | payer MEDICAID, OTHER | END 2025-06-22 17:00 | disposition home or self-care (01) | LOC: LAB 16:31 | PROVIDERS: ATTEND Internal Medicine | DX: N39.0 Urinary tract infection, site not specified (principal) | CPT/HCPCS: 87086 ==

== ENCOUNTER 2025-08-02 07:45 | Inpatient (IN) | payer MEDICAID, OTHER ==
[2025-07-31 11:26] LABS: INR 1.04 (0.9-1.15); Partial Thromboplastin Time 23.7 SEC (24.5-34.5); Prothrombin Time 11.0 sec (9.3-11.8)
[2025-07-31 11:28] LABS: Albumin 4.1 g/dL (3.2-4.8); Anion Gap 10 (5-15); BUN/Creatinine Ratio 42.3 (10.0-20.0); Blood Urea Nitrogen 22 mg/dL (9-23); Calcium 9.7 mg/dL (8.7-10.4); Carbon Dioxide 29 mmol/L (20-31); Chloride 106 mmol/L (98-107); Potassium 3.6 mmol/L (3.5-5.1); Total Protein 7.4 g/dL (5.7-8.2)
[2025-07-31 11:29] LABS: Bilirubin, Total 0.4 mg/dL (0.2-1.0)
[2025-07-31 11:33] LABS: Alanine Aminotransferase 75 U/L (7-40); Alkaline Phosphatase 134 U/L (46-116); Glucose 110 mg/dL (74-106); Sodium 145 mmol/L (136-145)
[2025-07-31 11:39] LABS: Hematocrit 44.6 % (36.0-46.0); Hemoglobin 14.3 g/dL (12.2-16.2); Mean Corpuscular Hemoglobin 27.0 pg (28.0-32.0); Mean Corpuscular Volume 84.0 fL (80.0-100.0); Nucleated Red Blood Cells % 0.1 %
[~2025-08-02] VITALS: Ht 167.6 cm; Wt 127.6 kg
[~2025-08-02 07:45] MED LIST changes: -FURO20TA3 PO; +TIRZ2.5I SC
[2025-08-02] MEDS ORDERED: MIDAZOLAM HCL 2MG/2ML 2ml VIAL (1mg/ml) ONE (09:09)
[2025-08-02] MEDS: ceFAZolin 2 GM/D5W50ml 50 ML IV ONE (09:09)
[2025-08-02] MEDS ORDERED: fentaNYL CITRATE 100 MCG/2 ML VL ONE (09:09)
--- NOTE | 2025-08-02 09:12 | DVHHP2 ---
History Allergies: Coded Allergies: NO KNOWN ALLERGIES (Unverified , 09/01/24) Chief Complaint: left knee pain,several years Present Illness(Onset/Duration 65F, obese, several year history of progressive left knee pain, scheduled for Left TKA two mo ago, cancelled due to UTI with high WBC, now with treated UTI, nl CBC/WBC, cleared for TKA Past Surgical History non contributory Medications see internal med H and P Physical Exam Skin intact Chest and Lungs CTA B Heart RRR neg MRG Abdomen NBS ND NT Extremities Left knee, 5 deg varus, ROM 5-125, nl stability Vital Signs Vital Signs Date Time Temp Pulse Resp B/P (MAP) Pulse Ox O2 Delivery O2 Flow Rate FiO2 08/02/25 07:56 97.8 87 20 153/84 (107) 96 97.8 Impressions/Description 65F, obese, Left knee OA, endstage Plan surgery Left Total Knee Arthroplasty RODOLFO JUAN MD Aug 02, 2025 09:11
[2025-08-02] MEDS ORDERED: ONDANSETRON HCL 4 MG/2 ML VIAL ONE (09:23)
[2025-08-02] MEDS ORDERED: METOCLOPRAMIDE HCL 5MG/ml INJ 2ml VIAL ONE (09:23)
[2025-08-02] MEDS ORDERED: SODIUM CHLORIDE LOCK 10 ML ONE (09:26)
[2025-08-02] MEDS ORDERED: PROPOFOL 10 MG/ML 20 ML IV ONE ×2 (09:27→10:20)
[2025-08-02] MEDS ORDERED: TRANEXAMIC ACID 10 ML ONE (09:38)
[2025-08-02] MEDS ORDERED: LIDOCAINE W/ EPINEPHRINE 1% 20ML VIAL ONE (09:47)
[2025-08-02 11:06] VITALS: PULSE 94; RESP 19; O2SAT 99
[2025-08-02] MEDS ORDERED: ONDANSETRON HCL 4 MG/2 ML VIAL IV PRN ×2 (11:15→17:00)
[2025-08-02] MEDS ORDERED: METOCLOPRAMIDE HCL 5MG/ml INJ 2ml VIAL IV PRN (11:15)
[2025-08-02] MEDS: LACTATED RINGER'S 1,000 ML IV SCH (11:30)
[2025-08-02] MEDS ORDERED: NITROGLYCERIN 0.4 MG SL TAB SL PRN (11:30)
--- NOTE | 2025-08-02 11:36 | DVHOP2 ---
Operative Report - 2 Report Details Date: 08/02/25 Preop Diagnosis: Left knee OA, endstage Postop Diagnosis: same Surgeon: Rodolfo Juan MD Securities Compliance Examiner: none Anesthesiologist: Dr Todd Anesthesia: General, Regional Drains: none Implant: Efra PS TKA, fem 4, tibia 5, poly 9mm, pat 32 Consent: The patient was informed of the risks and benefits of the procedure. These include but are not limited to complications of anesthesia, postoperative infection, incomplete relief of symptoms, recurrence of symptoms, damage to blood vessels, nerves and tendons, deep venous thrombosis, pulmonary embolism and possible need for repeat surgery in the future. Complications: none Estimated Blood Loss: 150 cc Fluids: 750 cc crystalloid Findings: OA, 3 comp, endstage Indications for Surgery: Endstage OA, left knee, non-responsive to conservative care, affecting ADL Name of Procedure Performed Left total knee arthroplasty Procedure Details Procedure Details: Patient brought to the operating room given Ancef 1 g IV piggyback preoperatively TXA 1 g IV piggyback preoperatively spinal anesthetic without complication sterile prep and drape left lower extremity after placement of nonsterile tourniquet left thigh time-out performed comprehension left side cor rect site total knee arthroplasty correct procedure after review of operative consent history and physical my initials on left knee exsanguination with Esmarch tourniquet elevated to 300 mm Hg total tourniquet time 50 minutes sharp dissection anterior midline down to deep fascia medial para parapatellar incision made patella everted knee flexed sharp excision of suprapatellar fat i nfrapatellar fat medial meniscus lateral meniscus ACL PCL Reamer to gain access to femoral canal intramedullary guide maureen placed with distal femoral resection guide set for 8 mm distal femoral cut made posterior femoral referencing guide then tapped into place size four seemed to be appropriate size size four four in one cutting block tapped into place and pinned into place distal femoral cuts made tibial plateau prepared by placing retractors medial lateral and posterior reaming to gain access to intramedullary canal placing intramedullary guide maureen setting for 2 mm off of low side or medial side tibial cut made soft tissue balancing performed balancing medial and lateral as well as flexion-extension gaps with excellent stability of medial and lateral and then with an excellent equal gaps flexion and extension trialing with a size four femur size five tibia 9 mm implant showing good range of motion good stability throughout range of motion and good patellar tracking rotation of tibial component marked and then tibial tray pinned into place reaming for the tibial keel and keel punched the tibial keel then patellar surface prepared size 32 patella seemed to be appropriate size patellar resection guide set for 10 mm then patellar button reaming performed tourniquet let let down excellent hemostasis noted irrigation of the knee pulsatile lavage of the knee weeks we exsanguination tourniquet elevated to 300 mm Hg true components cemented into place PrePay posterior stabilized knee size four femur size five tibia 9 mm poly and a size 32 patella after cement cured range of motion and stability assessed showing full range of motion 0-125 and excellent stability varus valgus throughout range of motion and excellent patellar tracking irrigation performed again excellent tourniquet let down excellent hemostasis noted and vancomycin powder placed into the knee compartment and deep fascia closed with simple interrupted 0 Vicryl sutures subcutaneous 2-0 Vicryl sutures skin melina fluffs ABD J Luis wrap no drains specimens complications thank you much Condition Stable Disposition Still a Patient RODOLFO JUAN MD Aug 02, 2025 11:35
[2025-08-02] MEDS: ACETAMINOPHEN IV 100 ML IV ONE (11:38)
[2025-08-02] MEDS: ACETAMINOPHEN IV 1000 MG/100ML (10MG/ML) IV ONE (12:08)
[2025-08-02] MEDS: HYDROmorphone HCL 2 MG/ML VL/or syr IV PRN (12:23)
--- NOTE | 2025-08-02 12:52 | DVH ---
EXAM: XY L KNEE 3V XRAY CLINICAL INDICATION: S/P SURGERY Left TKA TECHNIQUE: XY L KNEE 3V XRAY COMPARISON: XY L KNEE 3V XRAY on DOS: 01/13/25, XY L KNEE 3V XRAY on DOS: 02/18/24, XY L KNEE 2V XRAY on DOS: 06/21/23, L KNEE 4V XRAY on DOS: 04/06/20, L KNEE 4V XRAY on DOS: 12/06/19 FINDINGS/IMPRESSION: There is no evidence of acute fracture or dislocation. Left total knee arthroplasty. Surgical skin melina.
[2025-08-02] MEDS: ceFAZolin 1GM/50ML 50 ML IV SCH (15:00)
[2025-08-02 16:17] VITALS: BP 132/78; PULSE 95; RESP 16; TEMP 98.2; O2SAT 97
[2025-08-02 16:36] VITALS: BP 132/78; PULSE 95; RESP 18; TEMP 97.6; O2SAT 94
[2025-08-02] MEDS ORDERED: ACETAMINOPHEN 325 MG TAB PO PRN (17:00)
--- NOTE | 2025-08-02 17:03 | DVHINCON2 ---
Date Seen: Aug 02, [address] GE Family History: Diabetes mellitus G8 FATHER Hypertension G8 FATHER Allergies: Coded Allergies: NO KNOWN ALLERGIES (Unverified , 09/01/24) Home Meds Active Scripts Sucralfate (Carafate) 1 Gm/10 Ml Rocio, 1 GM PO BID for 30 Days, #60 GM Prov:NO DICKSON RESIDENT 06/17/25 Pantoprazole Sodium Sesquihydr (Protonix) 40 Mg Tab, 40 MG PO BID for 30 Days, #60 TAB Prov:NO DICKSON RESIDENT 06/17/25 Reported Medications Tirzepatide (Mounjaro) 2.5 Mg/0.5 Ml Inj, 2.5 MG SC QWEEKLY, INJ 07/31/25 Ferrous Sulfate (Ferosul) 325 Mg Tab, 325 MG PO, TAB 06/13/25 Cholecalciferol (D2000 Ultra Strength) 2,000 Unit Cap, 2000 UNIT PO DAILY, CAP 01/13/25 Ascorbic Acid (VITAMIN C TABLET) 500 Mg Tb, 500 MG GT DAILY, TAB 01/13/25 Alpha Tocopheryl Acid Succinat (VITAMIN E) 100 Unit Tab, 100 UNIT PO DAILY, TAB 01/13/25 Fish Oil (Fish Oil) 1,000 Mg Cap, 1000 MG PO DAILY, CAP 01/13/25 Current Medications Current Medications Medications (Trade) Dose Ordered Sig/Luis M Route PRN Reason Start Time Stop Time Status Last Admin Ondansetron HCl (Zofran) 4 mg ONCE PRN IV NAUSEA / VOMITING 08/02/25 11:15 08/02/25 12:01 DC Metoclopramide HCl (Reglan Injection) 10 mg ONCE PRN IV NAUSEA / VOMITING 08/02/25 11:15 08/02/25 12:01 DC Hydromorphone HCl (Dilaudid Injection) 0.5 mg Q10M PRN IV SEVERE PAIN (7-10 PAIN SCALE) 08/02/25 11:15 08/02/25 11:58 DC 08/02/25 12:39 Lactated Ringer's 1,000 ml @ 100 mls/hr Q10H IV 08/02/25 11:30 Cefazolin Sodium 50 ml @ 50 mls/hr Q6H IV 08/02/25 15:00 08/03/25 03:59 Docusate Sodium (Colace Capsule) 100 mg Q12HR PO 08/02/25 22:00 Bisacodyl (Dulcolax EC Tablet) 5 mg Q12HP PRN PO FOR CONSTIPATION 08/02/25 11:30 Enoxaparin Sodium (Lovenox) 30 mg Q12HR SC 08/03/25 10:00 Nitroglycerin (Ntrostat Sublingual) 0.4 mg Q5MINP PRN SL FOR CHEST PAIN 08/02/25 11:30 Vital Signs Vital Signs Date Time Temp Pulse Resp B/P (MAP) Pulse Ox O2 Delivery O2 Flow Rate FiO2 08/02/25 16:36 97.6 95 18 132/78 (96) 94 97.6 08/02/25 13:40 Nasal Cannula 2.0 95 Labs/Diagnostic Data Labs Test 08/02/25 11:15 07/31/25 10:45 Range/Units POC Glucose 159 H 70-106 mg/dl White Blood Count 13.5 H 4.4-10.8 10^3/uL Red Blood Count 5.31 H 4.0-5.20 10^6/uL Hemoglobin 14.3 12.2-16.2 g/dL Hematocrit 44.6 36.0-46.0 % Mean Corpuscular Volume 84.0 80.0-100.0 fL Mean Corpuscular Hemoglobin 27.0 L 28.0-32.0 pg Mean Corpuscular Hemoglobin Concent 32.1 32.0-36.0 g/dL Red Cell Distribution Width 17.3 H 11.8-14.3 % Platelet Count 310 140-450 10^3/uL Mean Platelet Volume 8.1 6.9-10.8 fL Neutrophils (%) (Auto) 56.8 37.0-80.0 % Lymphocytes (%) (Auto) 35.7 10.0-50.0 % Monocytes (%) (Auto) 5.6 0.0-12.0 % Eosinophils (%) (Auto) 1.0 0.0-7.0 % Basophils (%) (Auto) 0.9 0.0-2.0 % Neutrophils # (Auto) 7.7 1.6-8.6 10 ^3/uL Lymphocytes # (Auto) 4.8 0.4-5.4 10 ^3/uL Monocytes # (Auto) 0.8 0-1.3 10 ^3/uL Eosinophils # (Auto) 0.1 0-0.8 10 ^3/uL Basophils # (Auto) 0.1 0-0.2 10 ^3/uL Nucleated Red Blood Cells 0.1 % Prothrombin Time 11.0 9.3-11.8 sec Prothrombin Time INR 1.04 0.9-1.15 Activated Partial Thromboplast Time 23.7 L 24.5-34.5 SEC Sodium Level 145 136-145 mmol/L Potassium Level 3.6 3.5-5.1 mmol/L Chloride Level 106 98-107 mmol/L Carbon Dioxide Level 29 20-31 mmol/L Anion Gap 10 5-15 Blood Urea Nitrogen 22 9-23 mg/dL Creatinine 0.52 L 0.550-1.02 mg/dL Glomerular Filtration Rate Calc 103 >90 mL/min BUN/Creatinine Ratio 42.3 H 10.0-20.0 Serum Glucose 110 H 74-106 mg/dL Calcium Level 9.7 8.7-10.4 mg/dL Total Bilirubin 0.4 0.2-1.0 mg/dL Aspartate Amino Transferase (AST) 50 H 13-40 U/L Alanine Aminotransferase (ALT) 75 H 7-40 U/L Alkaline Phosphatase 134 H 46-116 U/L Total Protein 7.4 5.7-8.2 g/dL Albumin 4.1 3.2-4.8 g/dL Assessment SEE DICTATED NOTE Plan discussed with: Patient Date of Service: Aug 02, 2025 Billing Provider: YURIY EDUARDO MD Common Visit Codes: [id number] INP/OBS CARE (HIGH) Secondary Visit Codes: [id number] CARE PLAN 30 MINUTES YURIY EDUARDO MD Aug 02, 2025 17:03
[2025-08-02] MEDS: MORPHINE SULFATE 4 MG/ML SYR/VIAL IV PRN (17:43)
[2025-08-02] MEDS: PANTOPRAZOLE 40 MG TAB PO SCH (18:23)
[2025-08-02 20:00] VITALS: PULSE 92; RESP 17
[2025-08-02 21:00] VITALS: BP 136/86; PULSE 97; RESP 16; TEMP 97.6; O2SAT 93
[2025-08-02] MEDS: HYDROcodone-ACET 5/325MG TAB PO PRN (21:20)
[2025-08-02] MEDS: DOCUSATE SOD 100 MG CAP PO SCH (22:33)
[2025-08-03] VITALS (9 sets, daily range): BP systolic 124–137; BP diastolic 74–107; PULSE 82–97; RESP 16–20; TEMP 97.5–98; O2SAT 94–97
[2025-08-03 07:07] LABS: Hematocrit 39.8 % (36.0-46.0); Hemoglobin 12.8 g/dL (12.2-16.2); Mean Corpuscular Hemoglobin 27.1 pg (28.0-32.0); Mean Corpuscular Volume 84.7 fL (80.0-100.0); Nucleated Red Blood Cells % 0.0 %
[2025-08-03 07:18] LABS: Albumin 3.8 g/dL (3.2-4.8); Alkaline Phosphatase 107 U/L (46-116); Anion Gap 13 (5-15); BUN/Creatinine Ratio 31.0 (10.0-20.0); Bilirubin, Total 0.6 mg/dL (0.2-1.0); Blood Urea Nitrogen 13 mg/dL (9-23); Calcium 9.3 mg/dL (8.7-10.4); Carbon Dioxide 24 mmol/L (20-31); Chloride 104 mmol/L (98-107); Potassium 3.6 mmol/L (3.5-5.1); Sodium 141 mmol/L (136-145); Total Protein 6.7 g/dL (5.7-8.2)
[2025-08-03 07:22] LABS: Alanine Aminotransferase 80 U/L (7-40); Glucose 132 mg/dL (74-106)
--- NOTE | 2025-08-03 07:22 | DVHINCON2 ---
DATE OF CONSULTATION: 08/02/2025 INTERNAL MEDICINE CONSULT HISTORY OF PRESENT ILLNESS: The patient is a 65-year-old lady who was admitted after she underwent surgery on the left knee for DJD of the knee. The patient at this time complains of pain in the knee. No chest pain, no shortness of breath, no nausea or vomiting. REVIEW OF SYSTEMS: Review of rest of systems are otherwise currently negative. PAST MEDICAL HISTORY: Significant for diet-controlled diabetes, hypertension, had a recent UTI. MEDICATIONS: She takes Mounjaro, Protonix, Carafate. ALLERGIES: No known drug allergies. SOCIAL HISTORY: Denies smoking or alcohol. Lives at home with her daughter. FAMILY HISTORY: Negative. PHYSICAL EXAMINATION: GENERAL: On exam, the patient is awake, alert. VITAL SIGNS: Temperature of 97.6, pulse 95 per minute, blood pressure 129/74. SHEENT: Unremarkable. NECK: There is no JVD. No pedal edema. LUNGS: Equal bilaterally and no added sounds. CARDIOVASCULAR: S1 and S2 is regular without murmurs. ABDOMEN: Soft. There is no organomegaly. NEUROLOGIC: Nonfocal. MUSCULOSKELETAL: Left knee is currently in a dressing. ASSESSMENT AND PLAN: * Hypertension for which blood pressure will be monitored. * Gastroesophageal reflux disease. * Status post left knee surgery for degenerative joint disease of the knee for which she will be placed on pain medication and receive physical therapy. ADVANCED CARE PLANNING: The patient is a full code -TIME SPENT: 17 minutes. MD PIPO Alejo/SHEYLA TID: [phone] RECEIPT: [id number] [facility]ENT[facility]
[2025-08-03] MEDS: BUPIVACAINE W/ EPINEPH 0.5% INJ 50ML MDV IJ ONE (08:12)
[2025-08-03] MEDS: BUPIVACAINE W/ EPINEPH 0.25% INJ 50ML MDV ONE (08:12)
[2025-08-03] MEDS: TRANEXAMIC ACID 10 ML ONE (08:12)
[2025-08-03] MEDS: BUPIVACAINE 0.25% INJ 50ML VIAL ONE (08:12)
[2025-08-03] MEDS: VANCOMYCIN HCL 1000 MG VL ONE (08:12)
[2025-08-03] MEDS: TETRACAINE 1% INJ 2 ML VIAL IJ ONE (08:12)
[2025-08-03] MEDS: ENOXAPARIN SOD 30 MG/0.3 ML SYRINGE SC SCH (09:02)
--- NOTE | 2025-08-03 13:45 | POSTOP ---
Post-Operative Note Post-Operative Note Preop Diagnosis Left knee OA, endstage Postop Diagnosis: same Operation performed Left total knee arthroplasty Specimen none Anesthesia: General, Regional Anesthesiologist: Dr Todd Blood Loss(fluid mgmt) 150 cc Tourniquet Time 50 min. Surgeon Simba Juan MD [employer] none Implant Efra PS TKA, fem 4, tibia 5, poly 9mm, pat 32 Complications & Mgmt none Date 08/03/25 Time 13:45 SIMBA JUAN MD Aug 03, 2025 13:45
--- NOTE | 2025-08-03 13:50 | DVHPN2 ---
Date of Progress Note Date of Progress Note Date of Progress Note: 08/03/25 Date of Admission Date of Admission Date of Admission: Date of Admission: Aug 02, 2025 at 11:16 Overnight Events Overnight events Overnight Events Pt mahesh pain , mahesh PT this AM, no grimes, able to ambulate to bathroom with assist, knee immobilizer in place, NVI Family History Family History Family History: Diabetes mellitus G8 FATHER, Onset:Unknown Hypertension G8 FATHER, Onset:Unknown Allergies: Coded Allergies: NO KNOWN ALLERGIES (Unverified , 09/01/24) Home Meds Active Scripts Sucralfate (Carafate) 1 Gm/10 Ml Rocio, 1 GM PO BID for 30 Days, #60 GM Prov:RASHAWN DICKSONRA RESIDENT 06/17/25 Pantoprazole Sodium Sesquihydr (Protonix) 40 Mg Tab, 40 MG PO BID for 30 Days, #60 TAB Prov:RASHAWN DICKSONRA RESIDENT 06/17/25 Reported Medications Tirzepatide (Mounjaro) 2.5 Mg/0.5 Ml Inj, 2.5 MG SC QWEEKLY, INJ 07/31/25 Ferrous Sulfate (Ferosul) 325 Mg Tab, 325 MG PO, TAB 06/13/25 Cholecalciferol (D2000 Ultra Strength) 2,000 Unit Cap, 2000 UNIT PO DAILY, CAP 01/13/25 Ascorbic Acid (VITAMIN C TABLET) 500 Mg Tb, 500 MG GT DAILY, TAB 01/13/25 Alpha Tocopheryl Acid Succinat (VITAMIN E) 100 Unit Tab, 100 UNIT PO DAILY, TAB 01/13/25 Fish Oil (Fish Oil) 1,000 Mg Cap, 1000 MG PO DAILY, CAP 01/13/25 Current Medications Current Medications Medications (Trade) Dose Ordered Sig/Luis M Route PRN Reason Start Time Stop Time Status Last Admin Cefazolin Sodium 50 ml @ 50 mls/hr Q6H IV 08/02/25 15:00 08/03/25 03:59 DC 08/03/25 05:35 Docusate Sodium (Colace Capsule) 100 mg Q12HR PO 08/02/25 22:00 08/03/25 09:02 Enoxaparin Sodium (Lovenox) 30 mg Q12HR SC 08/03/25 10:00 08/03/25 09:02 Morphine Sulfate 2 mg Q4HPRN PRN IV SEVERE PAIN (7-10 PAIN SCALE) 08/02/25 17:00 08/03/25 12:53 Acetaminophen/ Hydrocodone Bitart ([place] 5/325MG Tab) 1 tab Q6HPRN PRN PO MODERATE PAIN (4-6 PAIN SCALE) 08/02/25 17:00 08/03/25 06:58 Acetaminophen (Tylenol Tablet) 650 mg Q6HP PRN PO MILD PAIN (1-3 PAIN SCALE) 08/02/25 17:00 Ondansetron HCl (Zofran) 4 mg Q6HPRN PRN IV NAUSEA / VOMITING 08/02/25 17:00 Pantoprazole Sodium (Protonix Tablet) 40 mg DAILY@0600 PO 08/02/25 17:18 08/03/25 05:39 Physical Examination General Examination: Last Vital sign Vital Signs Date Time Temp Pulse Resp B/P (MAP) Pulse Ox O2 Delivery O2 Flow Rate FiO2 08/03/25 13:00 98.0 84 18 131/89 (103) 96 98.0 08/03/25 07:40 Room Air* 0 21 General: General: No apparent distress, appears comfortable. Cooperative. Extremities: Left knee, dressing dry, no drainage, NVI, knee immobilizer in place Skin: no drainage Neurological Examination: Neurological Examination: Mental Status: Cranial Nerves: Motor Examination: Reflexes: Sensory: Coordination: Gait: Labs: Labs: Laboratory Tests Test 07/31/25 10:45 08/02/25 08:18 08/02/25 11:15 08/03/25 05:47 Range/Units White Blood Count 13.5 H 16.9 #H 4.4-10.8 10^3/uL Red Blood Count 5.31 H 4.70 4.0-5.20 10^6/uL Hemoglobin 14.3 12.8 12.2-16.2 g/dL Hematocrit 44.6 39.8 # 36.0-46.0 % Mean Corpuscular Volume 84.0 84.7 80.0-100.0 fL Mean Corpuscular Hemoglobin 27.0 L 27.1 L 28.0-32.0 pg Mean Corpuscular Hemoglobin Concent 32.1 32.1 32.0-36.0 g/dL Red Cell Distribution Width 17.3 H 16.6 H 11.8-14.3 % Platelet Count 310 268 140-450 10^3/uL Mean Platelet Volume 8.1 8.0 6.9-10.8 fL Neutrophils (%) (Auto) 56.8 72.5 37.0-80.0 % Lymphocytes (%) (Auto) 35.7 19.4 10.0-50.0 % Monocytes (%) (Auto) 5.6 8.0 0.0-12.0 % Eosinophils (%) (Auto) 1.0 0.0 0.0-7.0 % Basophils (%) (Auto) 0.9 0.1 0.0-2.0 % Neutrophils # (Auto) 7.7 12.2 H 1.6-8.6 10 ^3/uL Lymphocytes # (Auto) 4.8 3.3 0.4-5.4 10 ^3/uL Monocytes # (Auto) 0.8 1.4 H 0-1.3 10 ^3/uL Eosinophils # (Auto) 0.1 0 0-0.8 10 ^3/uL Basophils # (Auto) 0.1 0 0-0.2 10 ^3/uL Nucleated Red Blood Cells 0.1 0.0 % Prothrombin Time 11.0 9.3-11.8 sec Prothrombin Time INR 1.04 0.9-1.15 Activated Partial Thromboplast Time 23.7 L 24.5-34.5 SEC Sodium Level 145 141 136-145 mmol/L Potassium Level 3.6 3.6 3.5-5.1 mmol/L Chloride Level 106 104 98-107 mmol/L Carbon Dioxide Level 29 24 20-31 mmol/L Anion Gap 10 13 5-15 Blood Urea Nitrogen 22 13 9-23 mg/dL Creatinine 0.52 L 0.42 L 0.550-1.02 mg/dL Glomerular Filtration Rate Calc 103 108 >90 mL/min BUN/Creatinine Ratio 42.3 H 31.0 H 10.0-20.0 Serum Glucose 110 H 132 H 74-106 mg/dL Calcium Level 9.7 9.3 8.7-10.4 mg/dL Total Bilirubin 0.4 0.6 0.2-1.0 mg/dL Aspartate Amino Transferase (AST) 50 H 67 H 13-40 U/L Alanine Aminotransferase (ALT) 75 H 80 H 7-40 U/L Alkaline Phosphatase 134 H 107 46-116 U/L Total Protein 7.4 6.7 5.7-8.2 g/dL Albumin 4.1 3.8 3.2-4.8 g/dL POC Glucose 116 H 159 H 70-106 mg/dl Imaging Imaging: Left knee, TKA, no fracture/loosening Assessment/Plan Assessment/Plan Assessment and Plan:Maureen Charles is a 65 year old female POD 1 s/p TKA 1) continue PT 2) will change dressing tomorrow Plan discussed with: Patient RODOLFO JUAN MD Aug 03, 2025 13:50
--- NOTE | 2025-08-03 15:26 | DVHPN2 ---
Progress Note Date Seen: Aug 03, 2025 Medical Necessity Reason Pt with a Central, PICC or Fol: No Subjective Patient reports: No new complaints Review of Systems: HEENT:Normal Objective vital signs Vital Sign Date Time Temp Pulse Resp B/P (MAP) Pulse Ox O2 Delivery O2 Flow Rate FiO2 08/03/25 13:00 98.0 84 18 131/89 (103) 96 98.0 08/03/25 07:40 Room Air* 0 21 Total Intake and Output 08/02/25 08/02/25 08/03/25 15:00 23:00 07:00 Intake Total 200 ml 200 ml 0 ml Output Total 700 ml Balance 200 ml 200 ml -700 ml medications Current Medications Medications Dose Ordered Sig/Luis M Route Start Time Stop Time Status Last Admin Dose Admin Lactated Ringer's 1,000 ml @ 100 mls/hr Q10H IV 08/02/25 11:30 08/02/25 22:33 100 MLS/HR Docusate Sodium 100 mg Q12HR PO 08/02/25 22:00 08/03/25 09:02 100 MG Bisacodyl 5 mg Q12HP PRN PO 08/02/25 11:30 Enoxaparin Sodium 30 mg Q12HR SC 08/03/25 10:00 08/03/25 09:02 30 MG Nitroglycerin 0.4 mg Q5MINP PRN SL 08/02/25 11:30 Morphine Sulfate 2 mg Q4HPRN PRN IV 08/02/25 17:00 08/03/25 12:53 2 MG Acetaminophen/ Hydrocodone Bitart 1 tab Q6HPRN PRN PO 08/02/25 17:00 08/03/25 06:58 1 TAB Acetaminophen 650 mg Q6HP PRN PO 08/02/25 17:00 Ondansetron HCl 4 mg Q6HPRN PRN IV 08/02/25 17:00 Pantoprazole Sodium 40 mg DAILY@0600 PO 08/02/25 17:18 08/03/25 05:39 40 MG Examination: GENERAL:Normal, HEENT:Normal, NECK:Normal, LUNGS:Normal, CVS:Normal, ABDOMEN:Normal, MSK:Normal, MSK:Abnormal (left knee dressing), SKIN:Normal, NEURO:Normal, :Normal laboratory and microbiology Laboratory Tests 08/03/25 05:47 Test 08/03/25 05:47 Range/Units Serum Glucose 132 H 74-106 mg/dL Problem List/Assessment/Plan Problem List/Assessment/Plan * Hypertension for which blood pressure will be monitored. * Gastroesophageal reflux disease. * Status post left knee surgery for degenerative joint disease of the knee for which she will be placed on pain medication and receive physical therapy. Plan discussed with: Patient My Orders My Orders Orders - YURIY EDUARDO MD Procedure Category Date Status Time Hydrocodone-Acet PHA 08/02/25 In Process 5/325mg Tab ([place] 17:00 Acetaminophen Tablet PHA 08/02/25 In Process (Tylenol Tablet) 17:00 Ondansetron Hcl PHA 08/02/25 In Process (Zofran) 17:00 Pantoprazole Tablet PHA 08/02/25 In Process (Protonix Tablet) 17:18 Morphine Sulfate PHA 08/02/25 In Process Injection 17:00 Date of Service: Aug 03, 2025 Billing Provider: YURIY EDUARDO MD Common Visit Codes: [id number] INP/OBS CARE(HIGH) YURIY EDUARDO MD Aug 03, 2025 15:26
[2025-08-04] VITALS (7 sets, daily range): BP systolic 110–148; BP diastolic 68–88; PULSE 83–97; RESP 16–22; TEMP 97–98.4; O2SAT 92–95
[2025-08-04 07:21] LABS: Hematocrit 39.2 % (36.0-46.0); Hemoglobin 12.8 g/dL (12.2-16.2); Mean Corpuscular Hemoglobin 27.4 pg (28.0-32.0); Mean Corpuscular Volume 83.7 fL (80.0-100.0); Nucleated Red Blood Cells % 0.1 %
[2025-08-04 07:24] LABS: Chloride 104 mmol/L (98-107); Potassium 3.6 mmol/L (3.5-5.1); Sodium 142 mmol/L (136-145)
[2025-08-04 07:25] LABS: Anion Gap 11 (5-15); Carbon Dioxide 27 mmol/L (20-31)
[2025-08-04 07:26] LABS: Calcium 9.3 mg/dL (8.7-10.4)
[2025-08-04 07:31] LABS: BUN/Creatinine Ratio 36.6 (10.0-20.0); Blood Urea Nitrogen 15 mg/dL (9-23)
[2025-08-04 07:32] LABS: Glucose 116 mg/dL (74-106)
--- NOTE | 2025-08-04 13:31 | DVHPN2 ---
Date of Progress Note Date of Progress Note Date of Progress Note: 08/04/25 Date of Admission Date of Admission Date of Admission: Date of Admission: Aug 02, 2025 at 11:16 Overnight Events Overnight events Overnight Events Javan pain on PO meds able to void Family History Family History Family History: Diabetes mellitus G8 FATHER, Onset:Unknown Hypertension G8 FATHER, Onset:Unknown Allergies: Coded Allergies: NO KNOWN ALLERGIES (Unverified , 09/01/24) Home Meds Active Scripts Sucralfate (Carafate) 1 Gm/10 Ml Rocio, 1 GM PO BID for 30 Days, #60 GM Prov:NO DICKSON RESIDENT 06/17/25 Pantoprazole Sodium Sesquihydr (Protonix) 40 Mg Tab, 40 MG PO BID for 30 Days, #60 TAB Prov:RASHAWN DICKSONRA RESIDENT 06/17/25 Reported Medications Tirzepatide (Mounjaro) 2.5 Mg/0.5 Ml Inj, 2.5 MG SC QWEEKLY, INJ 07/31/25 Ferrous Sulfate (Ferosul) 325 Mg Tab, 325 MG PO, TAB 06/13/25 Cholecalciferol (D2000 Ultra Strength) 2,000 Unit Cap, 2000 UNIT PO DAILY, CAP 01/13/25 Ascorbic Acid (VITAMIN C TABLET) 500 Mg Tb, 500 MG GT DAILY, TAB 01/13/25 Alpha Tocopheryl Acid Succinat (VITAMIN E) 100 Unit Tab, 100 UNIT PO DAILY, TAB 01/13/25 Fish Oil (Fish Oil) 1,000 Mg Cap, 1000 MG PO DAILY, CAP 01/13/25 Physical Examination General Examination: Last Vital sign Vital Signs Date Time Temp Pulse Resp B/P (MAP) Pulse Ox O2 Delivery O2 Flow Rate FiO2 08/04/25 09:19 92 16 135/67 08/04/25 09:00 97.7 92 97.7 08/04/25 08:00 Room Air* 0 21 General: General: No apparent distress, appears comfortable. Cooperative. Extremities: Left knee, minimal swelling, NVI, no active drainage Neurological Examination: Neurological Examination: Mental Status: Cranial Nerves: Motor Examination: Reflexes: Sensory: Coordination: Gait: Labs: Labs: Laboratory Tests Test 07/31/25 10:45 08/02/25 08:18 08/02/25 11:15 08/03/25 05:47 Range/Units White Blood Count 13.5 H 16.9 #H 4.4-10.8 10^3/uL Red Blood Count 5.31 H 4.70 4.0-5.20 10^6/uL Hemoglobin 14.3 12.8 12.2-16.2 g/dL Hematocrit 44.6 39.8 # 36.0-46.0 % Mean Corpuscular Volume 84.0 84.7 80.0-100.0 fL Mean Corpuscular Hemoglobin 27.0 L 27.1 L 28.0-32.0 pg Mean Corpuscular Hemoglobin Concent 32.1 32.1 32.0-36.0 g/dL Red Cell Distribution Width 17.3 H 16.6 H 11.8-14.3 % Platelet Count 310 268 140-450 10^3/uL Mean Platelet Volume 8.1 8.0 6.9-10.8 fL Neutrophils (%) (Auto) 56.8 72.5 37.0-80.0 % Lymphocytes (%) (Auto) 35.7 19.4 10.0-50.0 % Monocytes (%) (Auto) 5.6 8.0 0.0-12.0 % Eosinophils (%) (Auto) 1.0 0.0 0.0-7.0 % Basophils (%) (Auto) 0.9 0.1 0.0-2.0 % Neutrophils # (Auto) 7.7 12.2 H 1.6-8.6 10 ^3/uL Lymphocytes # (Auto) 4.8 3.3 0.4-5.4 10 ^3/uL Monocytes # (Auto) 0.8 1.4 H 0-1.3 10 ^3/uL Eosinophils # (Auto) 0.1 0 0-0.8 10 ^3/uL Basophils # (Auto) 0.1 0 0-0.2 10 ^3/uL Nucleated Red Blood Cells 0.1 0.0 % Prothrombin Time 11.0 9.3-11.8 sec Prothrombin Time INR 1.04 0.9-1.15 Activated Partial Thromboplast Time 23.7 L 24.5-34.5 SEC Sodium Level 145 141 136-145 mmol/L Potassium Level 3.6 3.6 3.5-5.1 mmol/L Chloride Level 106 104 98-107 mmol/L Carbon Dioxide Level 29 24 20-31 mmol/L Anion Gap 10 13 5-15 Blood Urea Nitrogen 22 13 9-23 mg/dL Creatinine 0.52 L 0.42 L 0.550-1.02 mg/dL Glomerular Filtration Rate Calc 103 108 >90 mL/min BUN/Creatinine Ratio 42.3 H 31.0 H 10.0-20.0 Serum Glucose 110 H 132 H 74-106 mg/dL Calcium Level 9.7 9.3 8.7-10.4 mg/dL Total Bilirubin 0.4 0.6 0.2-1.0 mg/dL Aspartate Amino Transferase (AST) 50 H 67 H 13-40 U/L Alanine Aminotransferase (ALT) 75 H 80 H 7-40 U/L Alkaline Phosphatase 134 H 107 46-116 U/L Total Protein 7.4 6.7 5.7-8.2 g/dL Albumin 4.1 3.8 3.2-4.8 g/dL POC Glucose 116 H 159 H 70-106 mg/dl Test 08/04/25 06:55 Range/Units White Blood Count 15.9 H 4.4-10.8 10^3/uL Red Blood Count 4.69 4.0-5.20 10^6/uL Hemoglobin 12.8 12.2-16.2 g/dL Hematocrit 39.2 36.0-46.0 % Mean Corpuscular Volume 83.7 80.0-100.0 fL Mean Corpuscular Hemoglobin 27.4 L 28.0-32.0 pg Mean Corpuscular Hemoglobin Concent 32.7 32.0-36.0 g/dL Red Cell Distribution Width 16.9 H 11.8-14.3 % Platelet Count 281 140-450 10^3/uL Mean Platelet Volume 7.8 6.9-10.8 fL Neutrophils (%) (Auto) 64.6 37.0-80.0 % Lymphocytes (%) (Auto) 27.3 10.0-50.0 % Monocytes (%) (Auto) 7.4 0.0-12.0 % Eosinophils (%) (Auto) 0.4 0.0-7.0 % Basophils (%) (Auto) 0.3 0.0-2.0 % Neutrophils # (Auto) 10.3 H 1.6-8.6 10 ^3/uL Lymphocytes # (Auto) 4.3 0.4-5.4 10 ^3/uL Monocytes # (Auto) 1.2 0-1.3 10 ^3/uL Eosinophils # (Auto) 0.1 0-0.8 10 ^3/uL Basophils # (Auto) 0.1 0-0.2 10 ^3/uL Nucleated Red Blood Cells 0.1 % Sodium Level 142 136-145 mmol/L Potassium Level 3.6 3.5-5.1 mmol/L Chloride Level 104 98-107 mmol/L Carbon Dioxide Level 27 20-31 mmol/L Anion Gap 11 5-15 Blood Urea Nitrogen 15 9-23 mg/dL Creatinine 0.41 L 0.550-1.02 mg/dL Glomerular Filtration Rate Calc 109 >90 mL/min BUN/Creatinine Ratio 36.6 H 10.0-20.0 Serum Glucose 116 H 74-106 mg/dL Calcium Level 9.3 8.7-10.4 mg/dL Assessment/Plan Assessment/Plan Assessment and Plan:Maureen Charles is a 65 year old female POD 2 s/p LEFT TKA 1) clwear for dc tomorrow from [facility] 2) follow up ortho clinic 2 wks 3) dc meds in hospital pharm Plan discussed with: Patient RODOLFO JUAN MD Aug 04, 2025 13:31
[2025-08-04] MEDS: PIPERACILLIN-TAZOB 3.375GM 100 ML IV SCH (23:19)
[2025-08-05 01:00] VITALS: BP 106/66; PULSE 84; RESP 17; TEMP 97.8; O2SAT 97
[2025-08-05 05:00] VITALS: BP 101/68; PULSE 87; RESP 18; TEMP 98; O2SAT 97
[2025-08-05] MEDS ORDERED: PIPERACILLIN-TAZOB 3.375GM 100 ML IV SCH (06:00)
[2025-08-05 06:12] LABS: Hematocrit 38.0 % (36.0-46.0); Hemoglobin 12.5 g/dL (12.2-16.2); Mean Corpuscular Hemoglobin 27.6 pg (28.0-32.0); Mean Corpuscular Volume 83.9 fL (80.0-100.0); Nucleated Red Blood Cells % 0.1 %
[2025-08-05 06:20] LABS: Chloride 105 mmol/L (98-107); Potassium 3.6 mmol/L (3.5-5.1); Sodium 143 mmol/L (136-145)
[2025-08-05 06:21] LABS: Anion Gap 10 (5-15); Carbon Dioxide 28 mmol/L (20-31)
[2025-08-05 06:22] LABS: Calcium 9.0 mg/dL (8.7-10.4)
[2025-08-05 06:27] LABS: BUN/Creatinine Ratio 50.0 (10.0-20.0); Blood Urea Nitrogen 20 mg/dL (9-23)
[2025-08-05 06:28] LABS: Glucose 115 mg/dL (74-106)
[2025-08-05 09:00] VITALS: BP 155/82; PULSE 82; RESP 16; TEMP 98; O2SAT 93
[2025-08-05] MEDS: BISACODYL 5 MG EC TAB PO PRN (12:43)
[2025-08-05 13:00] VITALS: BP 132/76; PULSE 84; RESP 18; TEMP 97.9; O2SAT 93
[2025-08-05 16:56] VITALS: BP 109/60; PULSE 89; RESP 18; TEMP 98; O2SAT 94
[2025-08-05 21:00] VITALS: BP 129/70; PULSE 81; RESP 19; TEMP 98.2; O2SAT 96
[2025-08-06] VITALS (7 sets, daily range): BP systolic 127–140; BP diastolic 69–89; PULSE 75–79; RESP 19–21; TEMP 36.3; O2SAT 94–96
[2025-08-06 07:59] LABS: Hematocrit 39.1 % (36.0-46.0); Hemoglobin 12.8 g/dL (12.2-16.2); Mean Corpuscular Hemoglobin 27.5 pg (28.0-32.0); Mean Corpuscular Volume 84.2 fL (80.0-100.0); Nucleated Red Blood Cells % 0.1 %
[2025-08-06 08:10] LABS: Anion Gap 14 (5-15); Calcium 9.3 mg/dL (8.7-10.4); Carbon Dioxide 26 mmol/L (20-31); Chloride 105 mmol/L (98-107); Potassium 3.6 mmol/L (3.5-5.1)
[2025-08-06 08:11] LABS: Sodium 145 mmol/L (136-145)
[2025-08-06 08:14] LABS: Glucose 101 mg/dL (74-106)
[2025-08-06 08:15] LABS: BUN/Creatinine Ratio 31.0 (10.0-20.0); Blood Urea Nitrogen 13 mg/dL (9-23)
[2025-08-06] MEDS ORDERED: LEVO500T91 PO (16:19)
--- NOTE | 2025-08-06 22:38 | DVHPN2 ---
Reviewed: Care Plan Changes from previous H/P or p: No Changes General: Per HPI Objective Vitals Vital Signs Date Time Temp Pulse Resp B/P (MAP) Pulse Ox O2 Delivery O2 Flow Rate FiO2 08/06/25 17:00 97.7 79 19 127/75 (92) 96 97.7 08/06/25 08:00 Room Air* 0 21 Intake/Output Intake and Output 08/06/25 07:00 Intake Total 2160 ml Output Total 1900 ml Balance 260 ml Intake Oral 1860 ml IV Total 300 ml Output Urine Total 1900 ml General Appearance: Alert, Oriented X3, Cooperative Cardiovascular: Regular rate Abdomen: Normal bowel sounds, Soft Neuro: Normal gait Laboratory Results Laboratory Tests 08/06/25 04:50 Chemistry Test 08/06/25 04:50 Calcium Level 9.3 mg/dL (8.7-10.4) Microbiology Microbiology Date/Time Source Procedure Growth Status 08/04/25 22:50 Blood Blood Culture - Preliminary NO GROWTH AFTER 24 HOURS OF INCUBATION. Resulted Labs and/or images reviewed: Labs reviewed by me, Image(s) reviewed by me Assessment/Plan Assessment/Plan * Hypertension for which blood pressure will be monitored. * Gastroesophageal reflux disease. * Status post left knee surgery for degenerative joint disease of the knee for which she will be placed on pain medication and receive physical therapy. pt to work with PT/OT Plan discussed with: Patient My Orders Orders - HINA TADEO DO Procedure Category Date Status Time Discharge DISCHARGE 08/06/25 Transmitted 16:20 Date of Service: Aug 04, 2025 Billing Provider: HINA TADEO DO Common Visit Codes: [id number] INP/OBS CARE(HIGH) HINA TADEO DO Aug 06, 2025 22:38
--- NOTE | 2025-08-06 22:41 | DVHPN2 ---
Reviewed: Care Plan, H&P, Labs, Medications Changes from previous H/P or p: No Changes General: Per HPI Objective Vitals Vital Signs Date Time Temp Pulse Resp B/P (MAP) Pulse Ox O2 Delivery O2 Flow Rate FiO2 08/06/25 17:00 97.7 79 19 127/75 (92) 96 97.7 08/06/25 08:00 Room Air* 0 21 Intake/Output Intake and Output 08/06/25 07:00 Intake Total 2160 ml Output Total 1900 ml Balance 260 ml Intake Oral 1860 ml IV Total 300 ml Output Urine Total 1900 ml General Appearance: Alert, Oriented X3, Cooperative Cardiovascular: Regular rate Abdomen: Normal bowel sounds, Soft Neuro: Normal gait Laboratory Results Laboratory Tests 08/06/25 04:50 Chemistry Test 08/06/25 04:50 Calcium Level 9.3 mg/dL (8.7-10.4) Microbiology Microbiology Date/Time Source Procedure Growth Status 08/04/25 22:50 Blood Blood Culture - Preliminary NO GROWTH AFTER 24 HOURS OF INCUBATION. Resulted Labs and/or images reviewed: Labs reviewed by me, Image(s) reviewed by me Assessment/Plan Assessment/Plan * Hypertension for which blood pressure will be monitored. * Gastroesophageal reflux disease. * Status post left knee surgery for degenerative joint disease of the knee for which she will be placed on pain medication and receive physical therapy. pt to work with PT/OT possible d/c estebanithin 24 hrs Plan discussed with: Patient My Orders Orders - HINA TADEO DO Procedure Category Date Status Time Discharge DISCHARGE 08/06/25 Transmitted 16:20 Date of Service: Aug 05, 2025 Billing Provider: HINA TADEO DO Common Visit Codes: [id number] INP/OBS CARE(HIGH) HINA TADEO DO Aug 06, 2025 22:41
--- NOTE | 2025-08-06 22:42 | DVHDS2 ---
Discharge Summary Date of Admission Aug 02, 2025 at 11:16 Date of Discharge: Aug 06, 2025 Labs/Diagnostic Data: Laboratory Results Test 08/06/25 04:50 08/03/25 05:47 08/02/25 11:15 07/31/25 10:45 White Blood Count 13.8 10^3/uL (4.4-10.8) Red Blood Count 4.64 10^6/uL (4.0-5.20) Hemoglobin 12.8 g/dL (12.2-16.2) Hematocrit 39.1 % (36.0-46.0) Mean Corpuscular Volume 84.2 fL (80.0-100.0) Mean Corpuscular Hemoglobin 27.5 pg (28.0-32.0) Mean Corpuscular Hemoglobin Concent 32.6 g/dL (32.0-36.0) Red Cell Distribution Width 16.9 % (11.8-14.3) Platelet Count 331 10^3/uL (140-450) Mean Platelet Volume 8.2 fL (6.9-10.8) Neutrophils (%) (Auto) 65.4 % (37.0-80.0) Lymphocytes (%) (Auto) 27.7 % (10.0-50.0) Monocytes (%) (Auto) 5.8 % (0.0-12.0) Eosinophils (%) (Auto) 0.7 % (0.0-7.0) Basophils (%) (Auto) 0.4 % (0.0-2.0) Neutrophils # (Auto) 9.0 10 ^3/uL (1.6-8.6) Lymphocytes # (Auto) 3.8 10 ^3/uL (0.4-5.4) Monocytes # (Auto) 0.8 10 ^3/uL (0-1.3) Eosinophils # (Auto) 0.1 10 ^3/uL (0-0.8) Basophils # (Auto) 0.1 10 ^3/uL (0-0.2) Nucleated Red Blood Cells 0.1 % Sodium Level 145 mmol/L (136-145) Potassium Level 3.6 mmol/L (3.5-5.1) Chloride Level 105 mmol/L (98-107) Carbon Dioxide Level 26 mmol/L (20-31) Anion Gap 14 (5-15) Blood Urea Nitrogen 13 mg/dL (9-23) Creatinine 0.42 mg/dL (0.550-1.02) Glomerular Filtration Rate Calc 108 mL/min (>90) BUN/Creatinine Ratio 31.0 (10.0-20.0) Serum Glucose 101 mg/dL (74-106) Calcium Level 9.3 mg/dL (8.7-10.4) Total Bilirubin 0.6 mg/dL (0.2-1.0) Aspartate Amino Transferase (AST) 67 U/L (13-40) Alanine Aminotransferase (ALT) 80 U/L (7-40) Alkaline Phosphatase 107 U/L (46-116) Total Protein 6.7 g/dL (5.7-8.2) Albumin 3.8 g/dL (3.2-4.8) POC Glucose 159 mg/dl (70-106) Prothrombin Time 11.0 sec (9.3-11.8) Prothrombin Time INR 1.04 (0.9-1.15) Activated Partial Thromboplast Time 23.7 SEC (24.5-34.5) Other Laboratory Tests 08/06/25 04:50 Brief Hx & Hospital Course: Hypertension for which blood pressure will be monitored. * Gastroesophageal reflux disease. * Status post left knee surgery for degenerative joint disease of the knee for which she will be placed on pain medication and receive physical therapy. pt improved with PT/OT and discharged to home Condition at Discharge: Stable Final Diagnosis/Problems List same Discharge Disposition: Home Discharge Instruct/Medications Diet: Cardiac 2g Na,low cholest Activity: No Restrictions, As Tolerated Scheduled Alpha Tocopheryl Acid Succinat (Vitamin E), 100 UNIT PO DAILY, (Reported) Ascorbic Acid (Vitamin C Tablet), 500 MG GT DAILY, (Reported) Cholecalciferol (D2000 Ultra Strength), 2,000 UNIT PO DAILY, (Reported) Fish Oil (Fish Oil), 1,000 MG PO DAILY, (Reported) Levofloxacin Hemihydrate (Levofloxacin), 1 TAB PO DAILY Pantoprazole Sodium Sesquihydr (Protonix), 40 MG PO BID Sucralfate (Carafate), 1 GM PO BID Tirzepatide (Mounjaro), 2.5 MG SC QWEEKLY, (Reported) Miscellaneous Medications Ferrous Sulfate (Ferosul), 325 MG PO, (Reported) Discharge Statement: "Patient was advised to return to the ER or call 911 if any headaches, dizziness, shortness of breath, chest pain, abdominal pain, bleeding, fevers, or worsening of medical condition. Patient was counseled about treatment plan, medications, possible side effects, patientverbalized understanding. All questions were answered to the best of my ability. This discharge took greater then 30 minutes in planning, reviewing documentation, counseling the patient, and discussing with other team members." ASSESSMENT ASSESSMENT Assessment same Date of Service: Aug 06, 2025 Billing Provider: HINA TADEO DO Common Visit Codes: [id number] DISCH DAY >30min HINA TADEO DO Aug 06, 2025 22:42
== END 2025-08-06 19:40 | disposition left against medical advice (07) | DRG 470 ==
LOC: SUR 07:45 → OVERFLOW 11:16 → TELE-WESTW 15:48 → WEST WING 08-04 00:33
PROVIDERS: ADMIT Internal Medicine; ATTEND Internal Medicine
PROC: 0SRD069 Replacement of Left Knee Joint with Oxidized Zirconium on Polyethylene Synthetic Substitute, Cemented, Open Approach (ICD-10-PCS; principal; 2025-08-02 09:09)
DX: M17.12 Unilateral primary osteoarthritis, left knee (principal); E11.9 Type 2 diabetes mellitus without complications; I10 Essential (primary) hypertension; Z96.652 Presence of left artificial knee joint; K21.9 Gastro-esophageal reflux disease without esophagitis; Z82.49 Family history of ischemic heart disease and other diseases of the circulatory system; Z83.3 Family history of diabetes mellitus
CPT/HCPCS: 36415; 73562; 80048; 80053; 82962; 85025; 85610; 85730; 86850; 86900; 86901; 87040; 97110; 97116; 97163; 97530; G0378; J0131; J1100; J2250; J2405; J2543; J2704; J3490